=== PATIENT | male | born 1940 | race Caucasian/White ===

== ENCOUNTER 2016-06-01 08:48 | Day surgery (SDC) ==
[2016-06-01] MEDS ORDERED: LIDOCAINE 1% 20 ML MDV ID ONE (09:12)
[2016-06-01] MEDS ORDERED: LIDOCAINE 1% 20 ML MDV ONE (09:12)
[2016-06-01] MEDS ORDERED: DIPRIVAN 20 ML VIAL IVP ONE (11:05)
[2016-06-01] MEDS ORDERED: VERSED ONE (11:05)
[2016-06-01 12:10] VITALS: BP 144/73; TEMP 98
--- NOTE | 2016-06-02 09:51 | OP ---
INDICATIONS FOR PROCEDURE: 76-year-old gentleman presents for a screening colon exam. He also incidentally has normocytic anemia. MEDICATIONS: SEE ANESTHESIA NOTES. PROCEDURE: COLONOSCOPY, SCREENING. REPORT: The risks, benefits, alternatives and limitations were discussed in detail with the patient. Informed consent was obtained. After adequate sedation was achieved, a digital rectal exam revealed good tone, no masses. The colonoscope was introduced into the rectum and advanced under direct visual guidance to the cecum. The cecum was identified by the appendiceal orifice and IC valve. I then slowly withdrew the scope in a circumferential manner examining the mucosa quite carefully. I looked on the proximal and distal side of folds and flexures as best as possible. I was able to retroflex the scope in the right colon and left colon to increase visualization. Colonic mucosa was unremarkable except for several small mouth diverticula scattered throughout the sigmoid. On retroflex view of the anal canal there were small non engorged internal hemorrhoids. The prep was good. The withdrawal time was 8 minutes and 19 seconds. The patient tolerated the procedure well with stable vital signs and pulse oximetry throughout. IMPRESSION: 1. MILD DIVERTICULOSIS. 2. SMALL NONENGORGED INTERNAL HEMORRHOIDS. RECOMMENDATIONS: 1. High fiber diet. 2. Office visit as needed. 3. Given his advanced age and health, future screening colonoscopy examinations are not recommended. CC: DR. FARNAZ NORTON
== END 2016-06-01 12:25 | disposition home or self-care (01) ==
LOC: SURG 08:48
PROVIDERS: ATTEND Internal Medicine Gastroenterology
DX: Z12.11 Encounter for screening for malignant neoplasm of colon (principal); D64.9 Anemia, unspecified; K57.30 Diverticulosis of large intestine without perforation or abscess without bleeding; K64.8 Other hemorrhoids
CPT/HCPCS: 00810; G0105

== ENCOUNTER 2016-06-15 12:31 | Outpatient (CLI) ==
--- NOTE | 2016-06-15 13:50 | DI ---
EXAM: Radiographs, lumbar spine HISTORY: Right-sided sciatica. COMPARISON: None available. TECHNIQUE: Five views. FINDINGS: Mild left convex curvature centered in the mid lumbar spine noted. Alignment is normal. The vertebral body heights maintained. There is moderate loss of disc height at L4-5 and L5-S1. V ertebral body heights are maintained. Multilevel endplate osteophyte formation is greater in the lo wer lumbar spine. Multilevel facet arthropathy is also greater in the lower lumbar spine, moderate in degree. No fracture or subluxation identified. Sacral arcuate lines are intact. Atheroscleroti c calcifications are present. IMPRESSION: Moderate degenerative changes, greater in the lower lumbar spine.
== END 2016-06-15 12:32 | disposition home or self-care (01) ==
LOC: RAD 12:31
PROVIDERS: ATTEND Internal Medicine
DX: M54.31 Sciatica, right side (principal)

== ENCOUNTER 2017-08-30 08:12 | Day surgery (SDC) ==
[2017-08-30] MEDS ORDERED: LIDOCAINE 1% 20 ML MDV ID STA (08:49)
[2017-08-30] MEDS ORDERED: LIDOCAINE HCL 2% LUER-JET ONE (11:00)
[2017-08-30] MEDS ORDERED: DIPRIVAN 20 ML VIAL IVP ONE (11:00)
[2017-08-30] MEDS ORDERED: VERSED ONE (11:00)
[2017-08-30 13:41] VITALS: BP 128/67; TEMP 98.2
--- NOTE | 2017-08-31 11:12 | OP ---
INDICATIONS FOR PROCEDURE: 77 year old gentleman presents for endoscopy. He has a little bit of heartburn of indigestion and occasional dysphagia. He is found to have a normal acidic anemia. This is chronic. He is scheduled for endoscopy. MEDICATIONS: SEE ANESTHESIA NOTES. PROCEDURE: ENDOSCOPY. ESOPHAGEAL BIOPSY, CITIZEN OF [place]IL[place] REPORT: The risks, benefits, alternatives and limitations were discussed in detail with the patient. Informed consent was obtained. After adequate sedation was achieved, the video endoscope was introduced in the posterior pharynx and esophagus under direct vision and easily advanced down to the second portion of the duodenum. I then slowly withdrew. The duodenal mucosa appeared unremarkable as did the duodenal bulb. The antrum body is relatively unremarkably. The scope was retroflexed to look at the cardia and fundus which was unremarkable. The scope was anteflexed and withdrawn back through the esophagus. The GE junction there was 2+ reflux esophagitis consistent of LA grade B reflux esophagitis. I biopsied the GE junction for histological review. There was also circumferential esophageal stricture right above the GI junction. This causes mild lumen narrowing. The advised the scope back down the gastric lumen and I placed the guidewire. I then slowly withdrew the scope. The remaining esophagus was unremarkable. Over the guidewire I easily advised the 54 [place] Dilator. The patient tolerated the procedure well with stable vital signs and pulse oximetry throughout. IMPRESSION: 1. LA grade B reflux esophagitis 2. Distal esophageal stricture RECOMMENDATIONS: 1. Strict reflux precautions 2. I am going to have him take Omeprazole 20mg QAM for two months and then he can switch over to a over the counter H2 stacey. 3. Await pathology results 4. We will see him back in the office as needed CC: Dr. Flip NORTON
== END 2017-08-30 11:45 | disposition home or self-care (01) ==
LOC: SURG 08:12
PROVIDERS: ATTEND Internal Medicine Gastroenterology
DX: K21.0 Gastro-esophageal reflux disease with esophagitis (principal); K22.2 Esophageal obstruction; R13.10 Dysphagia, unspecified; D64.9 Anemia, unspecified; R12 Heartburn

== ENCOUNTER 2019-10-16 09:44 | Inpatient (IN) ==
--- NOTE | 2019-10-16 10:05 | ED.PDOC ---
General ED Provider: Dr. DIPAK WITT Chief Complaint: Shortness of Air Stated Complaint: Onset yesterday with progressive worsening through today. Denies past hx of CHF or COPD Pos Hx Diabetes and Hypertension Time Seen by Physician: 10:00 Mode of Arrival: Wheelchair Information Source: Patient Exam Limitations: No limitations Primary Care Provider: RAMON CASTELAN Nursing and Triage Documentation Reviewed and Agree: Yes Does patient meet sepsis criteria?: No If yes, has appropriate treatment been initiated?: No System Inflammatory Response Syndrome: Not Applicable Sepsis Protocol: For patient's 13 years and over: Temp is 96.8 and below OR 101 and greater Pulse >90 BPM Resp >20/minute Acutely Altered Mental Status Are patient's symptoms suggestive of a new infection, such as: -Pneumonia -Skin, Soft Tissue -Endocarditis -UTI -Bone, Joint Infection -Implantable Device -Acute Abdominal Infection -Wound Infection -Meningitis -Blood Stream Catheter Infection -Unknown Respiratory Complaint Exam Shortness of Air Complaint/Exam Onset/Duration: yesterday Symptoms Are: Worse Timing: Constant Initial Severity: Mild Current Severity: Moderate Character: Reports Dyspnea at rest, Dyspnea on exertion and Orthopnea Aggravating: Reports Movement and Recumbent position Alleviating: Reports None Associated Signs and Symptoms: Reports Wheezing Related History: Denies Similar episode History of Healthcare-Acquired Pneumonia: No Pulmonary Embolism Risk Factors: Reports None Pseudomonas Risk Factors: Reports None Tuberculosis Risk Factors: Reports None Home Peak Flow: Recent personal best Recent Stress Test: No Respiratory Distress: Moderate Stridor Present: No Tracheal Deviation: No Subcutaneous Emphysema: No Accessory Muscle Use: No Retractions: Not Present Diminished Breath Sounds: Yes Prolonged Expiratory Phase: No Unable to Speak Full Sentences: No Fatigue: Yes Leg Swelling: No Ed's Sign Present: No Grunting Respirations: No Kussmaul Respirations: No Differential Diagnoses: CHF and Pulmonary Edema Quality Indicators for AMI: EKG in 10min. Review of Systems Review Of Systems Constitutional: Reports Weakness Eyes: Reports No symptoms Ears, Nose, Mouth, Throat: Reports No symptoms Respiratory: Reports Orthopnea, Short of air and Wheezing Cardiac: Reports Lightheadedness GI: Reports No symptoms : Reports No symptoms Musculoskeletal: Reports No symptoms Skin: Reports No symptoms Neurological: Reports No symptoms Endocrine: Reports No symptoms Hematologic/Lymphatic: Reports No symptoms All Other Systems: Reviewed and Negative [facility] Medical History (Updated 06/24/20 @ 12:24 by ELLIOTT JORDAN) ASHD (arteriosclerotic heart disease) CKD (chronic kidney disease) COPD (chronic obstructive pulmonary disease) Diabetes Hypertension Metabolic syndrome Sciatica of right side Skin cancer Stricture esophagus Family History (Updated 10/16/19 @ 16:02 by DION WEI RN) Mother Stroke Hypertension Diabetes FATHER Hypertension FATHER AMI (acute myocardial infarction) SISTER Cancer BROTHER Cardiac abnormality Physical Exam Physical Exam Appearance: Reports Ill-appearing and Thin Ill-appearing: Moderate Pain Distress: None Eyes: Reports ALICE, EOMI and Conjunctiva clear ENT: Reports Ears normal, Nose normal and Oropharynx normal Neck: Supple Respiratory: Reports Breath sounds diminished, Crackles and Wheezes Cardiovascular: Reports Irregular rhythm GI/: Reports Soft, Nontender, No masses and Bowel sounds normal Musculoskeletal: Reports Normal strength, ROM intact, No edema and No calf tenderness Skin: Reports Warm Neurological: Reports Sensation intact, Motor intact, Reflexes intact, Cranial nerves intact, Alert and Oriented Psychiatric: Reports Affect appropriate and Mood appropriate; Denies Anxious and Depressed Interpretation Radiology Interpretation Radiology Interpretation By: Radiologist Exam Interpreted: Portable CXR (pumonary edema; Basilar consolidation poss pneumonia) EKG Interpretation Time of EKG #1: 10:11 Rate: Normal Rhythm: Sinus Ectopy: PVCs [place]: Left Interpretation: Can not r/o septal infarct, age undetermined Re-Evaluation Re-Evaluation Time of Re-Evaluation: 12:30 Status: Improved Vital Signs Stable: Yes Pain Level: 0 Appearance: NAD Lungs: Other (few crackles. non labored) Skin: Warm and Dry Neuro: Alert and Oriented X3 CV: RRR Physician Notification Case Discussed Physician Notified: Dr Castelan-discussed case-five patient decadron/aware of clinical impression; Time of Notification: 11:55 Critical Care Note Critical Care Note Total Time (mins): 60 Comments: The patient's status, along with VS, monitor and resp status has been monitored. Patient has remained in stable condition. Course Course Hematology/Chemistry: 10/18/19 05:22 10/18/19 05:22 Orders, Labs, Meds: Lab Review 10/16/19 10/16/19 10/16/19 10:10 10:40 10:40 WBC 13.12 H RBC 3.53 L Hgb 10.9 L Hct 32.0 L MCV 90.7 MCH 30.9 MCHC 34.1 RDW Coeff of Az 13.6 Plt Count 358 Immature Gran % (Auto) 0.4 Neut % (Auto) 87.0 H Lymph % (Auto) 6.3 L [place] % (Auto) 6.1 Eos % (Auto) 0.0 Baso % (Auto) 0.2 Neut # (Auto) 11.4 H Lymph # (Auto) 0.8 [place] # (Auto) 0.8 Eos # (Auto) 0.0 Baso # (Auto) 0.0 Immature Gran # (Auto) 0.1 PT 10.4 INR 1.06 APTT 23.9 Puncture Site Rr O2 Saturation 91.0 L ABG pH 7.328 L ABG pCO2 38.7 ABG pO2 66.0 L ABG HCO3 20.3 L ABG Total CO2 21 L ABG Base Excess -6 L Domo Test + FiO2 % 21.0 Sodium Potassium Chloride Carbon Dioxide Anion Gap BUN Creatinine Estimated GFR (MDRD) BUN/Creatinine Ratio Glucose Calcium Total Bilirubin AST ALT Alkaline Phosphatase Troponin I Total Protein Albumin Globulin Albumin/Globulin Ratio Procalcitonin D-Dimer Urine Color Urine Clarity Urine pH Ur Specific [place] Urine Protein Urine Glucose (UA) Urine Ketones Urine Blood Urine Nitrite Urine Bilirubin Urine Urobilinogen Ur Leukocyte Esterase Urine Microscopic WBC Ur Squamous Epith Cells Influ A Molecular Assay Influ B Molecular Assay 10/16/19 10/16/19 10/16/19 10:40 10:40 10:40 WBC RBC Hgb Hct MCV MCH MCHC RDW Coeff of Az Plt Count Immature Gran % (Auto) Neut % (Auto) Lymph % (Auto) [place] % (Auto) Eos % (Auto) Baso % (Auto) Neut # (Auto) Lymph # (Auto) [place] # (Auto) Eos # (Auto) Baso # (Auto) Immature Gran # (Auto) PT INR APTT Puncture Site O2 Saturation ABG pH ABG pCO2 ABG pO2 ABG HCO3 ABG Total CO2 ABG Base Excess Domo Test FiO2 % Sodium 123.0 L Potassium 4.70 Chloride 88.0 L Carbon Dioxide 22.0 Anion Gap 17.70 BUN 15.0 Creatinine 0.90 Estimated GFR (MDRD) 81.00 BUN/Creatinine Ratio 16.66 Glucose 219.0 H Calcium 8.80 Total Bilirubin 0.50 AST 28.0 ALT 18.0 Alkaline Phosphatase 65.0 Troponin I Total Protein 7.20 Albumin 3.90 Globulin 3.30 Albumin/Globulin Ratio 1.18 Procalcitonin < 0.05 D-Dimer 2709.08 H Urine Color Urine Clarity Urine pH Ur Specific [place] Urine Protein Urine Glucose (UA) Urine Ketones Urine Blood Urine Nitrite Urine Bilirubin Urine Urobilinogen Ur Leukocyte Esterase Urine Microscopic WBC Ur Squamous Epith Cells Influ A Molecular Assay Influ B Molecular Assay 10/16/19 10/16/19 10/16/19 10:40 10:40 11:12 WBC RBC Hgb Hct MCV MCH MCHC RDW Coeff of Az Plt Count Immature Gran % (Auto) Neut % (Auto) Lymph % (Auto) [place] % (Auto) Eos % (Auto) Baso % (Auto) Neut # (Auto) Lymph # (Auto) [place] # (Auto) Eos # (Auto) Baso # (Auto) Immature Gran # (Auto) PT INR APTT Puncture Site O2 Saturation ABG pH ABG pCO2 ABG pO2 ABG HCO3 ABG Total CO2 ABG Base Excess Domo Test FiO2 % Sodium Potassium Chloride Carbon Dioxide Anion Gap BUN Creatinine Estimated GFR (MDRD) BUN/Creatinine Ratio Glucose Calcium Total Bilirubin AST ALT Alkaline Phosphatase Troponin I 0.057 Total Protein Albumin Globulin Albumin/Globulin Ratio Procalcitonin D-Dimer Urine Color Yellow Urine Clarity Clear Urine pH 5.5 Ur Specific [place] 1.025 Urine Protein Trace H Urine Glucose (UA) Trace H Urine Ketones Negative Urine Blood Negative Urine Nitrite Negative Urine Bilirubin Negative Urine Urobilinogen 0.2 Ur Leukocyte Esterase Negative Urine Microscopic WBC 0-2 Ur Squamous Epith Cells 0-2 Influ A Molecular Assay Negative by naat Influ B Molecular Assay Negative by naat Orders Category Date Time Status ADMIT PATIENT INPATIENT .TO [facility] (MONITORED BED) ADMISSION 10/16/19 13:29 Active ABG DRAW REQUEST Stat CARDIO 10/16/19 10:10 Completed EKG-(ED ONLY) Stat CARDIO 10/16/19 10:10 Completed INTAKE & OUTPUT Q8HR CARE 10/16/19 10:19 Active NPO REMINDER: IMAGING ONCE CARE 10/16/19 11:59 Completed TELEMETRY MONITORING TELE CARE 10/16/19 13:29 Active IV [ED IV/MEDIPORT/POWERPORT] .ONCE EMERGENCY 10/16/19 10:17 Active ABG Stat LAB 10/16/19 10:10 Completed BLOOD CULTURE (ED ONLY) Stat LAB 10/16/19 10:40 Results CBC W/ AUTO DIFF Stat LAB 10/16/19 10:40 Completed CMP [COMPREHENSIVE METABOLIC PANEL] Stat LAB 10/16/19 10:40 Completed D-DIMER Stat LAB 10/16/19 10:40 Completed FLU A & B MOLECULAR [FLU A/B MOLECULAR] Stat LAB 10/16/19 10:40 Completed PARTIAL THROMBOPLASTIN TIME Stat LAB 10/16/19 10:40 Completed POS BC ID AND CUCA Stat LAB 10/16/19 10:40 Completed PROCALCITONIN Stat LAB 10/16/19 10:40 Completed PT WITH INR Stat LAB 10/16/19 10:40 Completed TROPONIN I Stat LAB 10/16/19 10:40 Completed UA [URINALYSIS C & S IF INDICATED] Stat LAB 10/16/19 11:12 Completed 0.9 % Sodium Chloride [Saline Flush] MEDS 10/16/19 10:17 Active 1 syr IVF PRN PRN Albuterol Inhaler(with Spacer) [Ventolin Hfa (Per Puff- MEDS 10/16/19 12:10 Discontinued with Spacer)] 2 puff IH ONCE STA Dexamethasone 4 mg/ml Inj [Decadron 4 mg/ml Sdv] MEDS 10/16/19 12:00 Disco ntinued 4 mg IVP ONCE STA Furosemide [Lasix] MEDS 10/16/19 10:17 Discontinued 20 mg IVP ONCE STA Sodium Chloride 0.9% [Sodium Chloride] 1,000 ml MEDS 10/16/19 12:03 Discontinued IV ONCE CHEST, 1V AP ONLY Stat RADS 10/16/19 10:[address] CHEST PE PROTOCOL Stat RADS 10/16/19 11:59 Completed Medications Generic Name Dose Route Start Last Admin Trade Name Freq PRN Reason Stop Dose Admin Aspirin 81 mg 10/17/19 08:30 10/17/19 08:17 Aspirin Ec PO 81 mg DAILYWM SAMAN Administration Atorvastatin Calcium 40 mg 10/16/19 21:00 10/17/19 20:36 Lipitor PO 40 mg BEDTIME SAMAN Administration Enoxaparin Sodium 40 mg 10/16/19 14:00 10/17/19 08:17 Lovenox SUBCUT 40 mg DAILY SAMAN Administration Furosemide 40 mg 10/18/19 06:30 10/18/19 06:45 Lasix Tab PO 40 mg QDAC SAMAN Administration Sodium Chloride 1,000 mls @ 50 mls/hr 10/17/19 12:50 10/17/19 23:54 Sodium Chloride IV Not Given .Q20H SAMAN CEFTRIAXONE/D5W 1 GM PREMIX 1 gm in 50 mls @ 75 mls/hr 10/17/19 13:00 10/17/19 13:11 Rocephin 1 Gm/50 Ml D5w IV 10/20/19 12:59 75 mls/hr DAILY SAMAN Administration Insulin Human Regular 0 unit 10/16/19 14:06 10/18/19 06:45 Humulin R SUBCUT 3 unit PRN PRN Administration glucose elevation Protocol Losartan Potassium 50 mg 10/17/19 09:00 10/17/19 08:17 Cozaar PO 50 mg DAILY SAMAN Administration Metoprolol Tartrate 25 mg 10/16/19 14:30 10/17/19 20:36 Lopressor PO 25 mg BID SAMAN Administration Morphine Sulfate 3 mg 10/17/19 18:50 10/18/19 03:12 Morphine 2 Mg/Ml Syringe IVP 3 mg Q2H PRN Administration SOA Omeprazole 20 mg 10/17/19 06:30 10/18/19 06:45 Prilosec PO 20 mg QDAC SAMAN Administration Sodium Chloride 1 syr 10/16/19 10:17 10/16/19 12:06 Saline Flush IVF 1 syr PRN PRN Administration To flush IV Discontinued Medications Generic Name Dose Route Start Last Admin Trade Name Freq PRN Reason Stop Dose Admin Albuterol Sulfate 2 puff 10/16/19 12:10 10/16/19 12:14 Ventolin Hfa (Per Puff-With Spacer) IH 10/16/19 12:11 2 puff ONCE STA Administration Dexamethasone Sodium Phosphate 4 mg 10/16/19 12:00 10/16/19 12:05 Decadron 4 Mg/Ml Sdv IVP 10/16/19 12:01 4 mg ONCE STA Administration Dexamethasone Sodium Phosphate 4 mg 10/17/19 12:50 10/17/19 13:15 Decadron 4 Mg/Ml Sdv IM 10/17/19 12:51 4 mg ONCE STA Administration Furosemide 20 mg 10/16/19 10:17 10/16/19 10:40 Lasix IVP 10/16/19 10:18 20 mg ONCE STA Administration Furosemide 20 mg 10/16/19 17:00 10/17/19 06:39 Lasix IVP 20 mg BIDAC SAMAN Administration Sodium Chloride 1,000 mls @ 75 mls/hr 10/16/19 12:03 10/16/19 12:13 Sodium Chloride IV 10/17/19 01:22 75 mls/hr ONCE ONE Administration Sodium Chloride 1,000 mls @ 30 mls/hr 10/16/19 16:00 10/16/19 17:41 Sodium Chloride IV 30 mls/hr .[id number] SAMAN Administration Sodium Chloride 1,000 mls @ 15 mls/hr 10/16/19 17:43 10/16/19 17:52 Sodium Chloride IV 15 mls/hr .Q36H SAMAN Administration Lisinopril 5 mg 10/17/19 09:00 10/17/19 08:17 Zestril PO 5 mg DAILY SAMAN Administration Morphine Sulfate 2 mg 10/16/19 17:59 10/16/19 18:14 Morphine 2 Mg/Ml Syringe IVP 10/16/19 18:00 2 mg ONCE STA Administration Morphine Sulfate 2 mg 10/16/19 21:47 10/16/19 22:02 Morphine 2 Mg/Ml Syringe IVP 10/16/19 21:48 2 mg ONCE STA Administration Vital Signs: Temp Pulse Resp BP Pulse Ox 10/16/19 09:55 97.4 F L 10/16/19 09:45 95.5 F L 51 L 26 H 137/68 86 L Discharge Plan Discharge Patient Disposition: ADMITTED INPATIENT Discharge Problem: Acute cardiac pulmonary edema ED Provider: DIPAK WITT Condition: Stable Discharge Date/Time: 10/16/19 14:07
[2019-10-16] MEDS ORDERED: LASIX IVP STA (10:17)
--- NOTE | 2019-10-16 11:05 | DI ---
EXAM: Chest one view HISTORY: Dyspnea COMPARISON: 07/15/2015 TECHNIQUE: Single view of the chest was performed FINDINGS: Normal heart size and mediastinal contour. Central pulmonary vasculature is prominent and indistinct. There are patchy bilateral alveolar opacities in the mid and basilar lungs with increas ed interstitial prominence. Small bilateral pleural effusions and mild bibasilar consolidation. No acute abnormalities of the bones. IMPRESSION: 1. Pulmonary edema with small bilateral pleural effusions. 2. Mild bibasilar consolidation may represent atelectasis, component of edema and/or pneumonia.
[2019-10-16] MEDS ORDERED: DECADRON 4 MG/ML SDV IVP STA (12:00)
[2019-10-16] MEDS ORDERED: SODIUM CHLORIDE 1,000 ML IV ONE (12:03)
[2019-10-16] MEDS ORDERED: VENTOLIN HFA (PER PUFF-WITH SPACER) IH STA (12:10)
--- NOTE | 2019-10-16 13:06 | CT ---
EXAM: CTA chest with contrast HISTORY: Elevated D-dimer TECHNIQUE: Multi-slice transaxial helical PE protocol. Multiplanar MIP and 3D volume rendered image s are provided. COMPARISON: Same day chest radiograph FINDINGS: Normal appearance of the thoracic inlet and thyroid gland. No pulmonary trio filling defect. Normal heart size. No pericardial effusion. Dense coronary calcifications. Aortic atherosclerotic calcif ications. Top normal size ascending aorta measuring 3.6 cm. No enlarged axillary, mediastinal or hi lar lymph nodes. Prominent left hilar lymph node measures 0.9 cm short axis. Borderline enlarged ri ght hilar lymph node measures 1 cm short axis. Esophagus within normal limits. Patent central airways. Moderate bilateral pleural effusions tracking to the apices. Generalized u pper and lower lung peribronchial thickening with peribronchial ground-glass and consolidation. No acute findings within the visualized upper abdomen. No acute osseous abnormality. IMPRESSION: 1. No pulmonary embolism. 2. Generalized peribronchial thickening with peribronchial ground-glass and consolidation, most cons istent with bronchopneumonia. Follow-up to resolution recommended. 3. Moderate bilateral pleural effusions. 4. Atherosclerosis.
[2019-10-16 14:57] VITALS: BMI 27.0
[2019-10-16] MEDS: LOVENOX SUBCUT SCH (15:03)
[2019-10-16] MEDS: LOPRESSOR PO SCH ×2 (15:03→21:05)
[2019-10-16] MEDS ORDERED: SODIUM CHLORIDE 1,000 ML IV SCH ×2 (16:00→17:43)
[2019-10-16] MEDS: LASIX IVP SCH (16:21)
[2019-10-16] MEDS: HUMULIN R SUBCUT PRN ×2 (17:52→21:05)
[2019-10-16] MEDS ORDERED: MORPHINE 2 MG/ML SYRINGE IVP STA ×2 (17:59→21:47)
[2019-10-16] MEDS: LIPITOR PO SCH (21:05)
[2019-10-17 04:18] LABS: HEMATOCRIT 28.8 % (42.0-52.0)
[2019-10-17] MEDS: PRILOSEC PO SCH (06:04)
[2019-10-17] MEDS: HUMULIN R SUBCUT PRN ×4 (06:04→20:36)
[2019-10-17] MEDS: LASIX IVP SCH (06:39)
[2019-10-17] MEDS: LOVENOX SUBCUT SCH (08:17)
[2019-10-17] MEDS: COZAAR PO SCH (08:17)
[2019-10-17] MEDS: LOPRESSOR PO SCH ×2 (08:17→20:36)
[2019-10-17] MEDS: ASPIRIN EC PO SCH (08:17)
[2019-10-17] MEDS ORDERED: ZESTRIL PO SCH (09:00)
[2019-10-17] MEDS ORDERED: DECADRON 4 MG/ML SDV IM STA (12:50)
[2019-10-17] MEDS: ROCEPHIN 1 GM/50 ML D5W 1 GM/50 ML BAG IV SCH (13:11)
[2019-10-17] MEDS: SODIUM CHLORIDE 1,000 ML IV SCH ×3 (14:47→23:54)
[2019-10-17] MEDS ORDERED: MORPHINE 4 MG/ML SYRINGE IVP PRN (18:41)
[2019-10-17] MEDS: MORPHINE 2 MG/ML SYRINGE IVP PRN (19:15)
[2019-10-17] MEDS: LIPITOR PO SCH (20:36)
[2019-10-18] MEDS: MORPHINE 2 MG/ML SYRINGE IVP PRN ×2 (03:12→11:29)
[2019-10-18 05:27] LABS: HEMATOCRIT 29.9 % (42.0-52.0)
[2019-10-18] MEDS ORDERED: LASIX TAB PO SCH (06:30)
[2019-10-18] MEDS: HUMULIN R SUBCUT PRN ×2 (06:45→20:24)
[2019-10-18] MEDS: PRILOSEC PO SCH (06:45)
[2019-10-18] MEDS ORDERED: VENTOLIN HFA (PER PUFF-WITH SPACER) IH PRN ×2 (08:26)
--- NOTE | 2019-10-18 08:53 | PCM.PROG ---
Attending Provider: ATTENDING PROVIDER: Dr. RAMON OSEI This patient is seen with Petrona Garzon, Nurse Practitioner. DATE OF SERVICE: 10/18/19 SUBJECTIVE: This 79 year old /WHITE M was hospitalized 10/16/19. The patient is alert and resting in the chair. He continued to have shortness of breath with minimal improvement. His appetite has been fair. EKG showed ejection fraction of 25%. He has showed little change in weight. The patient is not getting up due to shortness of breath. REVIEW OF SYSTEMS: CONSTITUTIONAL: No night sweats. No fatigue, malaise, lethargy. No fever or chills. Weakness. HEENT: Eyes: No visual changes. No eye pain. No eye discharge. ENT: No runny nose. No epistaxis. No sinus pain. No odynophagia. No congestion. RESPIRATORY: No cough, no congestion. No hemoptysis. Shortness of breath. CARDIOVASCULAR: No angina symptoms. No CHF symptoms. No atypical chest pain for CAD. No palpitations. No orthopnea.. GASTROINTESTINAL: No abdominal pain. No nausea or vomiting. No diarrhea or constipation. No hematemesis. No hematochezia. GENITOURINARY: No urgency. No frequency. No dysuria. No hematuria. No obstructive symptoms. No discharge. No pain. No significant abnormal bleeding. MUSCULOSKELETAL: No musculoskeletal pain; no joint swelling. NEUROLOGICAL: Awake, alert, oriented to time, place and person. No headache. No neck pain. No syncope. No seizures. No dizziness. PSYCHIATRIC: Not anxious. No depression. No suicidal thoughts. No homicidal thoughts. SKIN: No rash. No lesions. No wounds. ENDOCRINE: No unexplained weight loss. No weight gain. HEMATOLOGIC/LYMPHATIC: No anemia. No purpura. No petechiae. No prolonged or excessive bleeding. No palpable lymph nodes. PHYSICAL EXAMINATION: GENERAL: The patient is awake, alert and oriented, lying in bed in no distress. VITAL SIGNS: Temperature 97.6 F, Pulse 80, Respiratory Rate 20, BP 134/80, Pulse Ox 94% HEENT: Head normocephalic, atraumatic. Eyes: Extraocular muscles are intact. Pupils are equal, round and reactive to light and accommodation. Ears: No lesions. Nose appeared normal. Throat: No exudate or erythema. NECK: Supple. No JVD, no carotid bruit. No lymphadenopathy or thyromegaly. LUNGS: Diminished breath sounds with expiratory wheezing. Shortness of breath. Clear to auscultation. Percussion note normal. Chest symmetrical. HEART: S1, S2, no S3. No murmurs. No cyanosis or clubbing. No ascites. Pulses: Dorsalis pedis and posterior tibial pulses +1 to +2 both sides. ABDOMEN: Soft. Non-tender. Bowel sounds active. No CVA tenderness. No mass felt. EXTREMITIES: No edema. Full range of motion of all extremities, equal. NEUROLOGIC: No focal deficit. Cranial nerves II through XII are grossly intact. No headache, no double vision or headache. SKIN: Not dry. Intact. Turgor-normal. LYMPHATIC: No palpable lymph nodes/no lymphedema. MUSCULOSKELETAL: Normal joints with no swelling. Muscle tone is normal. LAB REVIEW: 10/18/19 05:22 10/18/19 05:22 10/18/19 05:22: Sodium 121.1 L, Potassium 4.62, Chloride 84.6 L, Carbon Dioxide 24.3, Anion Gap 16.82, BUN 24.8 H, Creatinine 0.88, Estimated GFR (MDRD) 83.00, BUN/Creatinine Ratio 28.18, Glucose 153.8 H, Calcium 8.92, Total Bilirubin 0.41, AST 47.6, ALT 34.0, Alkaline Phosphatase 59.2, Total Protein 6.96, Albumin 4.01, Globulin 2.95, Albumin/Globulin Ratio 1.35 10/18/19 05:22: WBC 14.13 H, RBC 3.34 L, Hgb 10.3 L, Hct 29.9 L, MCV 89.5, MCH 30.8, MCHC 34.4, RDW Coeff of Az 13.5, Plt Count 322, Immature Gran % (Auto) 0.4, Neut % (Auto) 77.9 H, Lymph % (Auto) 11.4, [place] % (Auto) 10.2 H, Eos % (Auto) 0.0, Baso % (Auto) 0.1, Neut # (Auto) 11.0 H, Lymph # (Auto) 1.6, [place] # (Auto) 1.4, Eos # (Auto) 0.0, Baso # (Auto) 0.0, Immature Gran # (Auto) 0.1 ASSESSMENT: Please see below. 1. Pulmonary edema 2. CHF ejection fraction 25% 3. Hyponatremia PLAN: 1. Continued on slow IV fluids 2. Lasix 3. Continue to monitor daily weights 4. Monitor I&O Plan and coordination of the patient's care discussed in the presence of Senior Consumer Insights Consultant and nurse. SCRIBED BY: Rogelio RAYGOZA scribed while in presence of service performed by Dr. Osei/Petrona Garzon APRN on 10/18/19 ([id number])
[2019-10-18] MEDS ORDERED: SODIUM CHLORIDE 3% 500 ML IV SCH (09:30)
[2019-10-18] MEDS: ASPIRIN EC PO SCH (09:37)
[2019-10-18] MEDS: COZAAR PO SCH (09:37)
[2019-10-18] MEDS: LOPRESSOR PO SCH ×2 (09:37→20:24)
[2019-10-18] MEDS: ROCEPHIN 1 GM/50 ML D5W 1 GM/50 ML BAG IV SCH (09:38)
[2019-10-18] MEDS: LOVENOX SUBCUT SCH (09:39)
[2019-10-18] MEDS ORDERED: ZOFRAN 4 MG/2 ML IVP PRN (11:21)
[2019-10-18] MEDS: VENTOLIN HFA (PER PUFF-WITH SPACER) IH SCH ×2 (13:50→20:29)
--- NOTE | 2019-10-18 14:37 | PN ---
DATE OF SERVICE: 10/16/2019 SUBJECTIVE: The patient was seen and examined with the Nurse Practitioner. History and Physical was done and plan was formulated. I examined the patient in the emergency room. The patient was brought to the emergency room with obvious respiratory distress. The patient had these symptoms of shortness of breath for past 5-6 days. The past couple of days he was unable to lay down flat and he had to sit up in the chair and sleep. In the emergency room the patient was in active pulmonary edema. The patient was given IV Lasix 40mg to which he responded. D-Dimer was elevated so CT angiogram was done which was negative for any pulmonary embolism. The patient's EKG showed sinus rhythm, LVH, poor R wave progression, PVC plus 90-100 per minute. The plan is to admit the patient with telemetry orders. IV Lasix 20mg Q 12 hours. The patient is going to be given Morphine sulfate 2-3mg PRN and just before he goes to sleep. BNP is going to be done in the morning. CK-MB is going to be done in the morning. Discontinue the Troponin. Metoprolol 25mg twice a day is going to be started. Zestril 5mg given. Discontinue Amlodipine. The patient educated about CHF. The patient is going to have an echo to evaluate LV function. The patient wants DNR. TOTAL TIME SPENT: 60 minutes face to face critical care. Plan and coordination of the patient's care discussed in the presence of nurse. ERROL
[2019-10-18] MEDS: SODIUM CHLORIDE 3% 500 ML IV SCH ×2 (18:51→23:24)
[2019-10-18] MEDS: LIPITOR PO SCH (20:24)
[2019-10-19] MEDS: VENTOLIN HFA (PER PUFF-WITH SPACER) IH SCH ×4 (04:58→20:45)
[2019-10-19] MEDS: PRILOSEC PO SCH (06:09)
[2019-10-19] MEDS: LASIX TAB PO SCH (06:09)
--- NOTE | 2019-10-19 07:24 | ECHO2D ---
Date of Exam: 10/17/19 Ordering Physician: DR. RAMON OSEI Room #: 117 Reason for Echo: CHF, DM, HTN M-Mode Normal Adult Results LV Dimensions Normal Adult Results AoV Opening excursions >1.6 1.4 LVEDD-base- 3.5-5.8 5.7 Ao root dimensions 2.0-3.7 3.2 LVESD-base- 3.1-4.6 L. Atrium dimensions 1.9-3.8 5.2 Post. Wall thickness 0.8-1.1 1.0 IV septum (thickness) 0.7-1.2 1.1 Post. Wall excursion 0.72-1.3 0.9 Septal motion 0.1 Systolic motion R. Ventricular cavity 1.5-2.0 NORMAL LVEF 60% 25-30% Paradoxical septal wall motion NORMAL 2-D : 2-D M Mode Echocardiogram was performed using apical four chamber and left parasternal long and short axis views. Mitral and tricuspid valves appear to be normal.BORDERLINE LEFT VENTRICLE CAVITY. CALCIFIC AORTIC VALVE. HYPOKINETIC TO AKINETIC SEPTAL WALL. ENLARGED LEFT ATRIAL CAVITY. There is no pericardial effusion. There is no thrombus noted in the left ventricle or left atrial cavity. No mitral valve prolapse noted. M-MODE: MV: NORMAL AV: CALCIFIC AORTIC VALVES TV: NORMAL PV: CHAMBER SIZE: ENLARGED LEFT ATRIAL CAVITY/BORDERLINE LEFT VENTRICLE CAVITY WALL MOTION: AKINETIC SEPTAL WALL PERICARDIUM: NORMAL INTERPRETATION: 1. 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 AKINETIC SEPTAL WALL EJECTION EJECTION FRACTION 25% -30% 3. BORDERLINE ENLARGED LEFT VENTRICLE CAVITY 4. ENLARGED LEFT ATRIAL CAVITY (5.2 CM) MTDD
[2019-10-19] MEDS: ENTRESTO 24 MG-26 MG TABLET PO SCH ×2 (08:31→20:14)
[2019-10-19] MEDS: LOPRESSOR PO SCH ×2 (08:31→20:15)
[2019-10-19] MEDS: ASPIRIN EC PO SCH (08:31)
[2019-10-19] MEDS: ROCEPHIN 1 GM/50 ML D5W 1 GM/50 ML BAG IV SCH (08:32)
[2019-10-19] MEDS: LOVENOX SUBCUT SCH (08:32)
[2019-10-19] MEDS: GLUCOPHAGE PO SCH ×2 (08:32→17:25)
[2019-10-19] MEDS ORDERED: NON-FORMULARY MEDICATION (Metformin 1,000 MG) PO SCH (09:00)
--- NOTE | 2019-10-19 10:22 | PCM.PROG ---
Attending Provider: ATTENDING PROVIDER: Dr. RAMON OSEI This patient is seen with Petrona Garzon, Nurse Practitioner. DATE OF SERVICE: 10/19/19 SUBJECTIVE: This 79 year old /WHITE M was hospitalized 10/16/19. The patient is resting comfortably in bed. He continues to report shortness of breath. He appears to be less labored this morning. Hypertonic saline continues at 40 mL/hr. Sodium is up to 125 this morning. I will discuss with Dr. Osei if this needs to be continued. He had an episode of chest discomfort yesterday and nausea which was relieved with Morphine and Zofran with no further episodes. REVIEW OF SYSTEMS: CONSTITUTIONAL: Weakness. No night sweats. No fatigue, malaise, lethargy. No fever or chills. HEENT: Eyes: No visual changes. No eye pain. No eye discharge. ENT: No runny nose. No epistaxis. No sinus pain. No odynophagia. No congestion. RESPIRATORY: No cough, no congestion. No hemoptysis. Shortness of breath. CARDIOVASCULAR: No angina symptoms. No CHF symptoms. No atypical chest pain for CAD. No palpitations. No orthopnea.. GASTROINTESTINAL: No abdominal pain. No nausea or vomiting. No diarrhea or constipation. No hematemesis. No hematochezia. GENITOURINARY: No urgency. No frequency. No dysuria. No hematuria. No obstructive symptoms. No discharge. No pain. No significant abnormal bleeding. MUSCULOSKELETAL: No musculoskeletal pain; no joint swelling. NEUROLOGICAL: Awake, alert, oriented to time, place and person. No headache. No neck pain. No syncope. No seizures. No dizziness. PSYCHIATRIC: Not anxious. No depression. No suicidal thoughts. No homicidal thoughts. SKIN: No rash. No lesions. No wounds. ENDOCRINE: No unexplained weight loss. No weight gain. HEMATOLOGIC/LYMPHATIC: No anemia. No purpura. No petechiae. No prolonged or excessive bleeding. No palpable lymph nodes. PHYSICAL EXAMINATION: GENERAL: The patient is awake, alert and oriented, lying/sitting in bed in no distress. VITAL SIGNS: Temperature 98.1 F, Pulse 67, Respiratory Rate 18, BP 130/78, Pulse Ox 98% HEENT: Head normocephalic, atraumatic. Eyes: Extraocular muscles are intact. Pupils are equal, round and reactive to light and accommodation. Ears: No lesions. Nose appeared normal. Throat: No exudate or erythema. NECK: Supple. No JVD, no carotid bruit. No lymphadenopathy or thyromegaly. LUNGS: Mild dyspnea. Diminished breath sounds. Expiratory wheezing. Percussion note normal. Chest symmetrical. HEART: S1, S2, no S3. No murmurs. No cyanosis or clubbing. No ascites. Pulses: Dorsalis pedis and posterior tibial pulses +1 to +2 both sides. ABDOMEN: Soft. Non-tender. Bowel sounds active. No CVA tenderness. No mass felt. EXTREMITIES: No edema. Full range of motion of all extremities, equal. NEUROLOGIC: No focal deficit. Cranial nerves II through XII are grossly intact. No headache, no double vision or headache. SKIN: Not dry. Intact. Turgor-normal. LYMPHATIC: No palpable lymph nodes/no lymphedema. MUSCULOSKELETAL: Normal joints with no swelling. Muscle tone is normal. LAB REVIEW: 10/19/19 05:05 10/19/19 05:05 10/19/19 05:05: Sodium 125.4 L, Potassium 4.52, Chloride 91.0 L, Carbon Dioxide 27.6, Anion Gap 11.32, BUN 26.4 H, Creatinine 0.99, Estimated GFR (MDRD) 73.00, BUN/Creatinine Ratio 26.66, Glucose 132.4 H, Calcium 8.76, Total Bilirubin 0.40, AST 52.5, ALT 42.8, Alkaline Phosphatase 60.2, Total Protein 6.57, Albumin 3.84, Globulin 2.73, Albumin/Globulin Ratio 1.40 10/19/19 05:05: WBC 11.92 H, RBC 3.19 L, Hgb 9.9 L, Hct 29.0 L, MCV 90.9, MCH 31.0, MCHC 34.1, RDW Coeff of Az 13.9, Plt Count 300, Immature Gran % (Auto) 0.4, Neut % (Auto) 78.3 H, Lymph % (Auto) 9.5 L, [place] % (Auto) 11.6 H, Eos % (Auto) 0.0, Baso % (Auto) 0.2, Neut # (Auto) 9.3 H, Lymph # (Auto) 1.1, [place] # (Auto) 1.4, Eos # (Auto) 0.0, Baso # (Auto) 0.0, Immature Gran # (Auto) 0.1 10/18/19 18:10: Sodium 120.9 L 10/18/19 12:55: Sodium 120.1 L ASSESSMENT: Please see below. 1. Pulmonary edema 2. CHF ejection fraction 25% 3. Hyponatremia PLAN: 1. Continue to monitor closely. 2. Continue strict I & O. 3. Restart Metformin. 4. Low dose Entresto started yesterday Plan and coordination of the patient's care discussed in the presence of Citrus Fruit Packer and nurse. CONDITION: Stable SCRIBED BY: ELLIOTT JORDAN, Energy Efficient Site Manager scribed while in presence of service performed by Dr. Osei/Petrona Garzon APRN on 10/19/19 ([id number])
--- NOTE | 2019-10-19 10:36 | PN ---
DATE OF SERVICE: 10/19/2019 SUBJECTIVE: The patient was seen and examined with Nurse Practitioner. The patient's condition is stable. CHF under control. He is still short of breath on exertion. Hyponatremia seems to be improving with sodium 125 with hypertonic solution. No signs of fluid overload. TIME SPENT: More than 30 minutes. Plan and coordination of the patient's care discussed in the presence of nurse. ERROL
--- NOTE | 2019-10-19 10:41 | PCM.PROG ---
Attending Provider: ATTENDING PROVIDER: Dr. RAMON OSEI DATE OF SERVICE: 10/17/19 SUBJECTIVE: This 79 year old /WHITE M was hospitalized 10/16/19 with acute pulmonary edema. The patient was treated with IV Lasix was also given Morphine Sulfate intermittently along with steroids. Chest x-ray and CT scan of the chest were indicative of pulmonary edema possibility of infiltrate indicating early pn eumomia. The patient's symptoms have been present for 5 to 7 days with orthopnea. He denied chest discomfort prior to becoming short of breath. The patient has a lot of anxiety related to his being in the residential from a hip fracture. REVIEW OF SYSTEMS: CONSTITUTIONAL: No night sweats. No fatigue, malaise, lethargy. No fever or chills. HEENT: Eyes: No visual changes. No eye pain. No eye discharge. ENT: No runny nose. No epistaxis. No sinus pain. No odynophagia. No congestion. RESPIRATORY: No cough, no congestion. No hemoptysis. Shortness of breath on exertion but is feeling better. He slept well. CARDIOVASCULAR: No angina symptoms. No CHF symptoms. No atypical chest pain for CAD. No palpitations. No orthopnea.. GASTROINTESTINAL: Appetite improved. No abdominal pain. No nausea or vomiting. No diarrhea or constipation. No hematemesis. No hematochezia. GENITOURINARY: No urgency. No frequency. No dysuria. No hematuria. No obstructive symptoms. No discharge. No pain. No significant abnormal bleeding. MUSCULOSKELETAL: No musculoskeletal pain; no joint swelling. NEUROLOGICAL: Awake, alert, oriented to time, place and person. No headache. No neck pain. No syncope. No seizures. No dizziness. PSYCHIATRIC: Not anxious. No depression. No suicidal thoughts. No homicidal thoughts. SKIN: No rash. No lesions. No wounds. ENDOCRINE: No unexplained weight loss. No weight gain. HEMATOLOGIC/LYMPHATIC: No anemia. No purpura. No petechiae. No prolonged or ex cessive bleeding. No palpable lymph nodes. PHYSICAL EXAMINATION: GENERAL: The patient is awake, alert and oriented, lying/sitting in bed in no distress. VITAL SIGNS: Temperature 97.6 F, Pulse 83, Respiratory Rate 18, BP 118/77, Pulse Ox 94% HEENT: Head normocephalic, atraumatic. Eyes: Extraocular muscles are intact. Pupils are equal, round and reactive to light and accommodation. Ears: No lesions. Nose appeared normal. Throat: No exudate or erythema. NECK: Supple. No JVD, no carotid bruit. No lymphadenopathy or thyromegaly. LUNGS: Decreased breath sounds with mild expiratory wheeze. Percussion note normal. Chest symmetrical. HEART: S1, S2, no S3. No murmurs. No cyanosis or clubbing. No ascites. Pulses: Dorsalis pedis and posterior tibial pulses +1 to +2 both sides. ABDOMEN: Soft. Non-tender. Bowel sounds active. No CVA tenderness. No mass f elt. EXTREMITIES: No edema. Full range of motion of all extremities, equal. NEUROLOGIC: No focal deficit. Cranial nerves II through XII are grossly intact. No headache, no double vision or headache. SKIN: Warm and dry. Intact. Turgor-normal. LYMPHATIC: No palpable lymph nodes/no lymphedema. MUSCULOSKELETAL: Normal joints with no swelling. Muscle tone is normal. LAB REVIEW: 10/17/19 04:20 10/17/19 04:20 10/17/19 04:20: Sodium 121.6 L, Potassium 4.68, Chloride 86.9 L, Carbon Dioxide 25.7, Anion Gap 13.68, BUN 20.2 H, Creatinine 0.94, Estimated GFR (MDRD) 77.00, BUN/Creatinine Ratio 21.48, Glucose 142.6 H D, Calcium 8.75, Total Bilirubin 0.48, AST 32.5, ALT 19.7, Alkaline Phosphatase 55.7 L, Total Creatine Kinase 175.1 H, CK-MB (CK-2) 10.600 H*, CK-MB (CK-2) % 6.0500, NT-Pro-B Natriuret Pep 13101.000 H, Total Protein 6.65, Albumin 3.73, Globulin 2.92, Albumin/Globulin Ratio 1.27 10/17/19 04:20: WBC 10.89 H, RBC 3.22 L, Hgb 10.0 L, Hct 28.8 L, MCV 89.4, MCH 31.1 H, MCHC 34.7, RDW Coeff of Az 13.6, Plt Count 319, Immature Gran % (Auto) 0.2, Neut % (Auto) 81.0 H, Lymph % (Auto) 9.5 L, [place] % (Auto) 9.1, Eos % (Auto) 0.0, Baso % (Auto) 0.2, Neut # (Auto) 8.8 H, Lymph # (Auto) 1.0, [place] # (Auto) 1.0, Eos # (Auto) 0.0, Baso # (Auto) 0.0, Immature Gran # (Auto) 0.0 10/17/19 04:20: Troponin I 0.602 H* 10/16/19 19:58: Troponin I 0.649 H* 10/16/19 10:40: Troponin I 0.057 EKG sinus rhythm, no PVCs. LVH with strain pattern, poor R wave progression. No acute changes. This EKG is much better from yesterday's EKG with stable rhythm. CK-MB borderline elevated because of ischemic damage. I don't think the patient had primary cardiac event involving coronary arteries. ASSESSMENT: Please see below. 1. Acute pulmonary edema resolved. 2. CHF, PVCs under control. 3. Hyponatremia persists. 4. Hypertension controlled. PLAN: 1. The patient is getting ready to have an echocardiogram. 2. NS infusion at 50 cc/hr; will watch for fluid overload. 3. Continue Metoprolol 25 mg b.i.d. 4. D/C Lisinopril. 5. Losartan 50 mg daily. 6. D/C Amlodipine. 7. Rocephin 1 gm q.24 hr for possibility of pneumonia on chest x-ray. 8. 1 cc IV Decadron today. 9. D/C IV Lasix 40 mg. 10. Give Lasix 40 mg q.a.m. p.o. Plan and coordination of the patient's care discussed in the presence of Rn Circulating and nurse. EDUCATION: CHF education carried out. CONDITION: Stable. Prognosis is guarded. SCRIBED BY: Chidi ELDRIDGEist scribed while in presence of service performed by Dr. RAMON OSEI on 10/17/19 ([id number])
[2019-10-19] MEDS ORDERED: DECADRON 4 MG/ML SDV IM STA (12:58)
--- NOTE | 2019-10-19 12:59 | PN ---
DATE OF SERVICE: 10/18/19 SUBJECTIVE: Mr. Talley was seen and examined with the nurse practitioner. The patient's condition is stabilizing. He is still short of breath on minimal exertion. He will be continued on Metoprolol and Cozaar. His systolic blood pressure is acceptable. The patient is a candidate of Entresto. We will add that and make some adjustment in his medications. TIME SPENT: More than 30 minutes. Plan and coordination of the patient's care discussed in the presence of nurse. ERROL
[2019-10-19] MEDS: HUMULIN R SUBCUT PRN ×2 (17:25→20:15)
[2019-10-19] MEDS: SODIUM CHLORIDE 3% 500 ML IV SCH (19:10)
[2019-10-19] MEDS: LIPITOR PO SCH (20:15)
[2019-10-20] MEDS: MORPHINE 4 MG/ML SYRINGE IVP PRN ×2 (04:39→11:41)
[2019-10-20] MEDS: VENTOLIN HFA (PER PUFF-WITH SPACER) IH SCH ×4 (04:39→19:56)
[2019-10-20 05:09] LABS: HEMATOCRIT 31.1 % (42.0-52.0)
[2019-10-20] MEDS: LASIX TAB PO SCH (05:58)
[2019-10-20] MEDS: PRILOSEC PO SCH (05:58)
[2019-10-20] MEDS: HUMULIN R SUBCUT PRN ×3 (05:59→20:43)
[2019-10-20] MEDS: SODIUM CHLORIDE 3% 500 ML IV SCH (07:40)
[2019-10-20] MEDS: ROCEPHIN 1 GM/50 ML D5W 1 GM/50 ML BAG IV SCH (09:21)
[2019-10-20] MEDS: GLUCOPHAGE PO SCH ×2 (09:21→17:27)
[2019-10-20] MEDS: ENTRESTO 24 MG-26 MG TABLET PO SCH ×2 (09:21→20:26)
[2019-10-20] MEDS: LOVENOX SUBCUT SCH (09:22)
[2019-10-20] MEDS: ASPIRIN EC PO SCH (09:22)
[2019-10-20] MEDS: LOPRESSOR PO SCH ×2 (09:22→20:26)
[2019-10-20] MEDS ORDERED: LASIX IVP STA (11:35)
[2019-10-20] MEDS ORDERED: DECADRON 4 MG/ML SDV IM STA (11:35)
[2019-10-20] MEDS: LIPITOR PO SCH (20:26)
[2019-10-21] MEDS: VENTOLIN HFA (PER PUFF-WITH SPACER) IH SCH ×4 (05:36→19:40)
[2019-10-21] MEDS: LASIX TAB PO SCH (06:05)
[2019-10-21] MEDS: PRILOSEC PO SCH (06:05)
[2019-10-21] MEDS: ROCEPHIN 1 GM/50 ML D5W 1 GM/50 ML BAG IV SCH (09:24)
[2019-10-21] MEDS: LOPRESSOR PO SCH ×2 (09:24→20:21)
[2019-10-21] MEDS: ASPIRIN EC PO SCH (09:24)
[2019-10-21] MEDS: ENTRESTO 24 MG-26 MG TABLET PO SCH ×2 (09:24→20:21)
[2019-10-21] MEDS: GLUCOPHAGE PO SCH ×2 (09:24→17:16)
[2019-10-21] MEDS: LOVENOX SUBCUT SCH (09:29)
[2019-10-21] MEDS: HUMULIN R SUBCUT PRN ×2 (11:08→17:16)
[2019-10-21] MEDS: LIPITOR PO SCH (20:21)
[2019-10-22 04:48] LABS: HEMATOCRIT 33.5 % (42.0-52.0)
[2019-10-22] MEDS: VENTOLIN HFA (PER PUFF-WITH SPACER) IH SCH ×4 (04:58→19:45)
[2019-10-22] MEDS: LASIX TAB PO SCH (06:19)
[2019-10-22] MEDS: PRILOSEC PO SCH (06:19)
--- NOTE | 2019-10-22 08:13 | PCM.PROG ---
Attending Provider: ATTENDING PROVIDER: Dr. RAMON OSEI This patient is seen with Petrona Garzon, Nurse Practitioner. DATE OF SERVICE: 10/22/19 SUBJECTIVE: This 79 year old /WHITE M was hospitalized 10/16/19. The patient is resting comfortably in the chair. He reports that he is feeling much better. He is less labored with his breathing. He has no further episodes of atrial fibrillation. This morning he is sinus at 82. Appetite is good. Sodium is 131. We will wean O2 today as tolerated. We will plan for three step O2 evaluation prior to discharge. REVIEW OF SYSTEMS: CONSTITUTIONAL: No night sweats. No fatigue, malaise, lethargy. No fever or chills. Weakness, improving. HEENT: Eyes: No visual changes. No eye pain. No eye discharge. ENT: No runny nose. No epistaxis. No sinus pain. No odynophagia. No congestion. RESPIRATORY: No cough, no congestion. No hemoptysis. Shortness of breath, improving. CARDIOVASCULAR: No angina symptoms. No CHF symptoms. No atypical chest pain for CAD. No palpitations. No orthopnea.. GASTROINTESTINAL: No abdominal pain. No nausea or vomiting. No diarrhea or constipation. No hematemesis. No hematochezia. GENITOURINARY: No urgency. No frequency. No dysuria. No hematuria. No obstructive symptoms. No discharge. No pain. No significant abnormal bleeding. MUSCULOSKELETAL: No musculoskeletal pain; no joint swelling. NEUROLOGICAL: Awake, alert, oriented to time, place and person. No headache. No neck pain. No syncope. No seizures. No dizziness. PSYCHIATRIC: Not anxious. No depression. No suicidal thoughts. No homicidal thoughts. SKIN: No rash. No lesions. No wounds. ENDOCRINE: No unexplained weight loss. No weight gain. HEMATOLOGIC/LYMPHATIC: No anemia. No purpura. No petechiae. No prolonged or excessive bleeding. No palpable lymph nodes. PHYSICAL EXAMINATION: GENERAL: The patient is awake, alert and oriented, lying in bed in no distress. VITAL SIGNS: Temperature 97.6 F, Pulse 82, Respiratory Rate 18, BP 120/70, Pulse Ox 99% HEENT: Head normocephalic, atraumatic. Eyes: Extraocular muscles are intact. Pupils are equal, round and reactive to light and accommodation. Ears: No lesions. Nose appeared normal. Throat: No exudate or erythema. NECK: Supple. No JVD, no carotid bruit. No lymphadenopathy or thyromegaly. LUNGS: Diminished breath sounds. Clear to auscultation. Percussion note normal. Chest symmetrical. HEART: S1, S2, no S3. No murmurs. No cyanosis or clubbing. No ascites. Pulses: Dorsalis pedis and posterior tibial pulses +1 to +2 both sides. ABDOMEN: Soft. Non-tender. Bowel sounds active. No CVA tenderness. No mass felt. EXTREMITIES: No edema. Full range of motion of all extremities, equal. NEUROLOGIC: No focal deficit. Cranial nerves II through XII are grossly intact. No headache, no double vision or headache. SKIN: Not dry. Intact. Turgor-normal. LYMPHATIC: No palpable lymph nodes/no lymphedema. MUSCULOSKELETAL: Normal joints with no swelling. Muscle tone is normal. LAB REVIEW: 10/22/19 04:33 10/22/19 04:33 10/22/19 04:33: Sodium 131.5 L, Potassium 4.30, Chloride 94.8 L, Carbon Dioxide 32.7 H, Anion Gap 8.30, BUN 22.3 H, Creatinine 1.04, Estimated GFR (MDRD) 69.00, BUN/Creatinine Ratio 21.44, Glucose 124.5 H, Calcium 8.95, Total Bilirubin 0.19 L, AST 35.5, ALT 39.0, Alkaline Phosphatase 50.6 L, Total Protein 5.92 L, Albumin 3.28 L, Globulin 2.64, Albumin/Globulin Ratio 1.24 10/22/19 04:33: WBC 12.75 H, RBC 3.56 L, Hgb 11.1 L, Hct 33.5 L, MCV 94.1 H, MCH 31.2 H, MCHC 33.1, RDW Coeff of Az 14.9 H, Plt Count 358, Immature Gran % (Auto) 0.4, Neut % (Auto) 65.4, Lymph % (Auto) 19.4, [place] % (Auto) 12.2 H, Eos % (Auto) 2.4, Baso % (Auto) 0.2, Neut # (Auto) 8.3 H, Lymph # (Auto) 2.5, [place] # (Auto) 1.6, Eos # (Auto) 0.3, Baso # (Auto) 0.0, Immature Gran # (Auto) 0.1 ASSESSMENT: Please see below. 1. Pulmonary edema 2. CHF ejection fraction 25% 3. Hyponatremia PLAN: 1. Wean O2 as tolerated 2. three O2 evaluation 3. Continue telemetry 4. Continue to monitor I&O 5. CBC and CMP in the morning Plan and coordination of the patient's care discussed in the presence of Palliative Care Physician and nurse. SCRIBED BY: Rogelio RAYGOZA scribed while in presence of service performed by Dr. Osei/Petrona Garzon APRN on 10/22/19 ([id number])
[2019-10-22] MEDS: ENTRESTO 24 MG-26 MG TABLET PO SCH ×2 (08:22→20:44)
[2019-10-22] MEDS: ASPIRIN EC PO SCH (08:22)
[2019-10-22] MEDS: LOVENOX SUBCUT SCH (08:22)
[2019-10-22] MEDS: ROCEPHIN 1 GM/50 ML D5W 1 GM/50 ML BAG IV SCH (08:22)
[2019-10-22] MEDS: GLUCOPHAGE PO SCH ×2 (08:22→17:07)
[2019-10-22] MEDS: LOPRESSOR PO SCH ×2 (08:22→20:44)
[2019-10-22] MEDS: HUMULIN R SUBCUT PRN (11:07)
[2019-10-22] MEDS: LIPITOR PO SCH (20:44)
[2019-10-23] MEDS: VENTOLIN HFA (PER PUFF-WITH SPACER) IH SCH ×3 (05:10→13:50)
[2019-10-23 05:37] LABS: HEMATOCRIT 33.5 % (42.0-52.0)
[2019-10-23] MEDS: PRILOSEC PO SCH (05:54)
[2019-10-23] MEDS: LASIX TAB PO SCH (05:54)
[2019-10-23 06:00] VITALS: BP 117/68; TEMP 98.6
[2019-10-23] MEDS: ENTRESTO 24 MG-26 MG TABLET PO SCH (08:14)
[2019-10-23] MEDS: LOVENOX SUBCUT SCH (08:15)
[2019-10-23] MEDS: ASPIRIN EC PO SCH (08:15)
[2019-10-23] MEDS: LOPRESSOR PO SCH (08:15)
[2019-10-23] MEDS: GLUCOPHAGE PO SCH (08:15)
--- NOTE | 2019-10-23 09:45 | PCM.PROG ---
Attending Provider: ATTENDING PROVIDER: Dr. RAMON OSEI This patient is seen with Summer Pyle, Nurse Practitioner. DATE OF SERVICE: 10/23/19 SUBJECTIVE: This 79 year old /WHITE M was hospitalized 10/16/19. Sitting in chair resting comfortably. He has been up and about without oxygen, will do three- step today. Blood pressure is stable. Sodium is stable. The patient is ready for discharge. REVIEW OF SYSTEMS: CONSTITUTIONAL: Weakness. No night sweats. No fatigue, malaise, lethargy. No fever or chills. HEENT: Eyes: No visual changes. No eye pain. No eye discharge. ENT: No runny nose. No epistaxis. No sinus pain. No odynophagia. No congestion. RESPIRATORY: No cough, no congestion. No hemoptysis. Shortness of breath with exertion. CARDIOVASCULAR: No angina symptoms. No CHF symptoms. No atypical chest pain for CAD. No palpitations. No orthopnea.. GASTROINTESTINAL: No abdominal pain. No nausea or vomiting. No diarrhea or constipation. No hematemesis. No hematochezia. GENITOURINARY: No urgency. No frequency. No dysuria. No hematuria. No obstructive symptoms. No discharge. No pain. No significant abnormal bleeding. MUSCULOSKELETAL: No musculoskeletal pain; no joint swelling. NEUROLOGICAL: Awake, alert, oriented to time, place and person. No headache. No neck pain. No syncope. No seizures. No dizziness. PSYCHIATRIC: Not anxious. No depression. No suicidal thoughts. No homicidal thoughts. SKIN: No rash. No lesions. No wounds. ENDOCRINE: No unexplained weight loss. No weight gain. HEMATOLOGIC/LYMPHATIC: No anemia. No purpura. No petechiae. No prolonged or excessive bleeding. No palpable lymph nodes. PHYSICAL EXAMINATION: GENERAL: The patient is awake, alert and oriented, lying/sitting in bed in no distress. VITAL SIGNS: Temperature 98.6 F, Pulse 75, Respiratory Rate 16, BP 117/68, Pulse Ox 97% HEENT: Head normocephalic, atraumatic. Eyes: Extraocular muscles are intact. Pupils are equal, round and reactive to light and accommodation. Ears: No lesions. Nose appeared normal. Throat: No exudate or erythema. NECK: Supple. No JVD, no carotid bruit. No lymphadenopathy or thyromegaly. LUNGS: Diminished breath sounds. Clear to auscultation. Percussion note normal. Chest symmetrical. HEART: S1, S2, no S3. No murmurs. No cyanosis or clubbing. No ascites. Pulses: Dorsalis pedis and posterior tibial pulses +1 to +2 both sides. ABDOMEN: Soft. Non-tender. Bowel sounds active. No CVA tenderness. No mass felt. EXTREMITIES: No edema. Full range of motion of all extremities, equal. NEUROLOGIC: No focal deficit. Cranial nerves II through XII are grossly intact. No headache, no double vision or headache. SKIN: Not dry. Intact. Turgor-normal. LYMPHATIC: No palpable lymph nodes/no lymphedema. MUSCULOSKELETAL: Normal joints with no swelling. Muscle tone is normal. LAB REVIEW: 10/23/19 05:30 10/23/19 05:30 10/23/19 05:30: Sodium 131.1 L, Potassium 4.24, Chloride 95.4 L, Carbon Dioxide 31.8 H, Anion Gap 8.14, BUN 18.0, Creatinine 0.87, Estimated GFR (MDRD) 84.00, BUN/Creatinine Ratio 20.68, Glucose 112.8 H, Calcium 9.02, Total Bilirubin 0.34, AST 30.6, ALT 34.4, Alkaline Phosphatase 51.5 L, Total Protein 6.06 L, Albumin 3.35 L, Globulin 2.71, Albumin/Globulin Ratio 1.23 10/23/19 05:30: WBC 11.97 H, RBC 3.62 L, Hgb 11.1 L, Hct 33.5 L, MCV 92.5, MCH 30.7, MCHC 33.1, RDW Coeff of Az 15.0 H, Plt Count 351, Immature Gran % (Auto) 0.4, Neut % (Auto) 66.2, Lymph % (Auto) 17.9, [place] % (Auto) 12.3 H, Eos % (Auto) 2.9, Baso % (Auto) 0.3, Neut # (Auto) 7.9 H, Lymph # (Auto) 2.1, [place] # (Auto) 1.5, Eos # (Auto) 0.4, Baso # (Auto) 0.0, Immature Gran # (Auto) 0.1 ASSESSMENT: Please see below. 1. Pulmonary edema, resolved. 2. CHF ejection fraction 25%. 3. Hyponatremia. PLAN: 1. Three-step prior to discharge. 2. Continue medications as they are. 3. CHF discussed in detail. 4. Home Health for PT/OT and for CHF education. 5. Will discharge home today. 6. Will see in the office next week. Plan and coordination of the patient's care discussed in the presence of Sales Center Associate and nurse. CONDITION: Stable SCRIBED BY: ELLIOTT JORDAN Raker Buffing Wheel scribed while in presence of service performed by Dr. Osei/Summer Pyle APRN on 10/23/19 ([id number])
--- NOTE | 2019-10-23 10:50 | CM.DICTOOL ---
ADMISSION: 10/16/19 13:36 DISCHARGE: OCTOBER 23, 2019 DATE OF SERVICE: 10/23/19 FINAL DIAGNOSIS ACUTE PULMONARY EDEMA DILATED CARDIOMYOPATHY WITH EF 25% HYPONATREMIA CHF HX: ACUTE SINUSITIS- 12/29/2018 METABOLIC SYNDROME DM TYPE 2 , 01/11 - A1C 5.9 CKD TYPE 2 COPD ASHD ESOPHAGEAL STRICTURE INTERMITTENT CONSTIPATION RT SCIATICA ANEMIA HTN BACK PAIN - BULGING DISC LAST VITALS Temp Pulse Resp BP Pulse Ox 98.6 F 75 16 117/68 97 10/23/19 05:59 10/23/19 05:59 10/23/19 05:59 10/23/19 05:59 10/23/19 05:59 TAKE THESE MEDICATIONS AT HOME Albuterol Sulfate (Ventolin Hfa (Per Puff-With Spacer)) 2 puff IH RTQID [facility] -- ( NEW) Last Admin: 10/23/19 05:10 Dose: 2 puff Aspirin (Aspirin Ec) 81 mg PO DAILYWM [facility] Last Admin: 10/23/19 08:15 Dose: 81 mg Atorvastatin Calcium (Lipitor) 40 mg PO BEDTIME [facility] Last Admin: 10/22/19 20:44 Dose: 40 mg Furosemide (Lasix Tab) 20 mg PO QDAC [facility] --- ( NEW) Last Admin: 10/23/19 05:54 Dose: 20 mg Metformin HCl (Glucophage) 1,000 mg PO BIDWM [facility] Last Admin: 10/23/19 08:15 Dose: 1,000 mg Metoprolol Tartrate (Lopressor) 25 mg PO BID [facility] --- ( NEW) Last Admin: 10/23/19 08:15 Dose: 25 mg Omeprazole (Prilosec) 20 mg PO QDAC [facility] Last Admin: 10/23/19 05:54 Dose: 20 mg Sacubitril/Valsartan (Entresto 24 Mg-26 Mg Tablet) 1 each PO BID [facility] --- ( NEW) Last Admin: 10/23/19 08:14 Dose: 1 each ROLAIDS 2 TAB PO EVERY 4 HOURS PRN OMEGA 3 FISH OIL 1 CAP PO AT BEDTIME GARLIC 1000 MG PO BEDTIME ALLERGIES No Known Allergies Allergy (Verified 10/16/19 09:58) DISCONTINUED MEDICATIONS Lisinopril (Zestril) AMLODIPINE - OLMESARTAN ( [place]) NEW PRESCRIPTIONS: Albuterol Sulfate (Ventolin Hfa (Per Puff-With Spacer) ) 2 puff IH RTQID [facility] Furosemide (Lasix Tab) 20 mg PO QDAC [facility] Metoprolol Tartrate (Lopressor) 25 mg PO BID [facility] Sacubitril/Valsartan (Entresto 24 Mg-26 Mg Tablet) SMOKING: NON- APPLICABLE DISEASE SPECIFIC EDUCATION: PULMONARY EDEMA CHF HYPONATREMIA 2 GRAM NA, HEART HEALTHY 1500 ML FLUID RESTRICTION COVID LAB REVIEW: 10/23/19 05:30 10/23/19 05:30 10/23/19 05:30: Sodium 131.1 L, Potassium 4.24, Chloride 95.4 L, Carbon Dioxide 31.8 H, Anion Gap 8.14, BUN 18.0, Creatinine 0.87, Estimated GFR (MDRD) 84.00, BUN/Creatinine Ratio 20.68, Glucose 112.8 H, Calcium 9.02, Total Bilirubin 0.34, AST 30.6, ALT 34.4, Alkaline Phosphatase 51.5 L, Total Protein 6.06 L, Albumin 3.35 L, Globulin 2.71, Albumin/Globulin Ratio 1.23 10/23/19 05:30: WBC 11.97 H, RBC 3.62 L, Hgb 11.1 L, Hct 33.5 L, MCV 92.5, MCH 30.7, MCHC 33.1, RDW Coeff of Az 15.0 H, Plt Count 351, Immature Gran % (Auto) 0.4, Neut % (Auto) 66.2, Lymph % (Auto) 17.9, Owsley % (Auto) 12.3 H, Eos % (Auto) 2.9, Baso % (Auto) 0.3, Neut # (Auto) 7.9 H, Lymph # (Auto) 2.1, Owsley # (Auto) 1.5, Eos # (Auto) 0.4, Baso # (Auto) 0.0, Immature Gran # (Auto) 0.1 PLAN: DISCHARGE HOME TODAY OCTOBER 23, 2019 WITH [facility] REFERRAL, CONTACTED TA. PHONE # [phone] ACTIVITY: UP TOLERATED IN HOME WITH FREQUENT REST PERIODS, STAY HOME AND INDOORS. ACTIVITY MODIFICATIONS DIRECTED BY HOMEHEALTH THERAPY WEIGH DAILY: REPORT 2-3 OR MORE # IN 24 HOURS OR 5-7 OR MORE # IN A WEEK TO MD DIET : 2 GRAM NA, HEART HEALTHY 1500 ML 24 HOUR FLUID RESTRICTION FOLLOW UP: SEE DR. OSEI/ ELIDA PADILLA APRN/AVILA INGRAM APRN IN THE OFFICE ON WEDNESDAY, OCTOBER 30, 2019 @ 945 IN THE AM. CODE STATUS: DO NOT RESUSCITATE MR KIM IS ALERT AND ORIENTED X 4. REMAINS PLEASANT. ACTIVITY TOLERANCE HAS IMPROVED WITH ONLY SLIGHT EXERTIONAL SOA. TOOK SHOWER THIS AM, WALKED TO AND FROM WITH OUT O2. DID NOT QUALIFY FOR HOME O2 PER 3 STEP. SKIN WARM AND DRY AND INTACT. GENERAL SKIN COLOR IS PINK WITH GREAT IMPROVEMENT SINCE ADMISSION WHILE HE HAD A PALLOR/ SLIGHT ASHENED APPEARANCE. APPETITE IS FAIR TO GOOD. DOING WELL WITH THE 1500 ML FLUID RESTRICTION. NO I AND O DEFICITS. WEIGHT IS STABLE @ 180 # 12 OZ. ADMISSION WEIGHT WAS 182# 15 OZ AND GOT HIGH 184 #. HE IS UP AND AMBULATING ON OWN WITH SLIGHT WEAKNESS. DOES NOT USE AN ASSISTIVE DEVICE THOUGH HE HAS A CANE AT HOME. [facility] TO EVAL WITH A SN, DISEASE PROCESS, MED CHANGES AND O2 LEVELS. PT AND OT EVALS FOR ADLS AND IADLS ABILITY TO PERFORME SAFELY AND EFFECTIVELY. CONTINENT OF BOWEL AND BLADDER. LAST BM 10/22/2019. MD ELIDA PETERSON APRN ALYCE HANNAN, APRN
[2019-10-23] MEDS: HUMULIN R SUBCUT PRN (11:24)
--- NOTE | 2019-10-23 13:26 | HP ---
DATE OF SERVICE: 10/16/2019 REASON FOR HOSPITALIZATION/HISTORY OF PRESENT ILLNESS: This is an 79 year old white male who presented to the emergency room complaining of worsening shortness of breath. He was short of breath even when speaking. He has had some mild leg swelling. PAST MEDICAL HISTORY: Metabolic syndrome Diabetes Mellitus II, last A1c was 5.9 on 01/11 CKD stage 3 COPD Atherosclerotic heart disease History of esophageal stricture stretched by Dr. Tovar 11/09 Intermittent constipation Right sciatica History of anemia Hypertension ED Dyslipidemia PAST SURGICAL HISTORY: Esophageal stricture EGD 11/09 Colonoscopy 06/11 REVIEW OF SYSTEMS: CONSTITUTIONAL: No night sweats. No fatigue, malaise, lethargy. No fever or chills. Weakness. HEENT: Eyes: No visual changes. No eye pain. No eye discharge. ENT: No runny nose. No epistaxis. No sinus pain. No sore throat. No odynophagia. No ear pain. No congestion. RESPIRATORY: Cough, no congestion. No hemoptysis. Shortness of breath. CARDIOVASCULAR: No angina symptoms. No CHF symptoms. No atypical chest pain for CAD. No palpitations. No PND. No orthopnea. GASTROINTESTINAL: No abdominal pain. No nausea or vomiting. No diarrhea or constipation. No hematemesis. No hematochezia. GENITOURINARY: No urgency. No frequency. No dysuria. No hematuria. No obstructive symptoms. No discharge. No pain. No significant abnormal bleeding. MUSCULOSKELETAL: No musculoskeletal pain. No joint swelling. No arthritis. NEUROLOGICAL: No headache. No neck pain. No syncope. No seizures. No dizziness. PSYCHIATRIC: Not anxious. No depression. No suicidal thoughts. No homicidal thoughts. SKIN: No rash. No lesions. No wounds. Trace leg edema ENDOCRINE: No unexplained weight loss. No weight gain. HEMATOLOGIC/LYMPHATIC: No anemia. No purpura. No petechiae. No prolonged or excessive bleeding. No palpable lymph nodes. PERSONAL/FAMILY/SOCIAL HISTORY: Quit smoking in 1988. He is . His fell and broke her hip, she is actually in the [facility]pc, [facility]. He is her primary care advocate. She has dementia. No alcohol or illicit drug use. MEDICATIONS: Metformin 1000mg PO BID Lisinopril 40mg PO BEDTIME Ecotrin Low strength 81mg PO BEDTIME Daniella 5-40mg PO BEDTIME Fish oil 1000mg one capsule PO BEDTIME Garlic tablet 1000mg PO BEDTIME Lipitor 40mg BEDTIME Rolaids 550-110mg two tablets PO Q 4 Hours PRN Omeprazole Magnesium 20mg PO DAILY ALLERGIES: No known allergies PHYSICAL EXAMINATION: VITAL SIGNS: Temperature 98.1, blood pressure 137/68, pulse ox 86% on room air. HEENT: Head normocephalic, atraumatic. Eyes: Extraocular muscles are intact. Pupils are equal, round and reactive to light and accommodation. Ears: No lesions. Nose appeared normal. Throat: No exudate or erythema. NECK: Supple. No JVD, no carotid bruit. No lymphadenopathy or thyromegaly. LUNGS: Severely diminished breath sounds bilaterally. Visibly short of breath. Clear to auscultation. Percussion note normal. Chest symmetrical. HEART: S1, S2, no S3. No murmur. No cyanosis or clubbing. No ascites. Pulses: Dorsalis pedis and posterior tibial pulses +1 to +2 bilaterally. ABDOMEN: Soft. Nontender. Bowel sounds active. No CVA tenderness. No mass felt. EXTREMITIES: Trace leg edema. Full range of motion of all extremities, equal. NEUROLOGIC: No focal deficit. Cranial nerves II through XII are grossly intact. No headache, no double vision or headache. SKIN: Not dry. Intact. Turgor -Pallor LYMPHATIC: No palpable lymph nodes/no lymphedema. MUSCULOSKELETAL: Normal joints with no swelling. Muscle tone is normal. LABS: Chest x-ray shows pulmonary edema with small bilateral plural effusion. 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 Urine is trace protein, trace glucose. sodium 123, potassium 4.7, BUN 15, creatinine 0.9, glucose 219. AST 28, ALT 18, total protein 7.2. D-Dimer 2709. ABG on room air pH 7.328, pCo2 38, pO2 66, base excess -6. Bicarb 20.3, TCO2 21, o2 saturation 91. WBC 13.12, hgb 10.9, hct 32.0. Neutrophils 87, plt count 358. CT angiogram shows no evidence of pulmonary embolism. ASSESSMENT: 1. Acute pulmonary edema 2. Acute respiratory failure 3. Congestive heart failure 4. Hyponatremia 5. Diabetes Mellitus type 2 6. Metabolic syndrome 7. Chronic kidney disease stage 2 8. COPD 9. History of atherosclerotic heart disease 10.Hypertension 11.Anemia 12.Dyslipidemia PLAN: 1. The patient is to be admitted with Routine telemetry order 2. Serial EKGs 3. The patient is a DNR 4. Lasix 40mg IV now and then 20mg IV Q 12 hours 5. Normal saline at KVO IV 6. Lisinopril 5mg PO 7. Discontinue Lisinopril 40mg daily 8. Discontinue Hydrochlorothiazide 9. Start Lopressor 25mg BID 10. Continue Losartan at 50mg daily 11. Order for a 2D echo 12. CBC and CMP daily 13. Oxygen 1-2 liters nasal canula as needed 14. Repeat ABGs in one hour on oxygen 15. Regular diet 16. Elevate the legs 17. Sliding scale for insulin 18. Will monitor Accu-checks BID for Diabetes Mellitus type II 19. Continue other home medications Will follow closely. TIME SPENT: More than 70 minutes. MTDD
--- NOTE | 2019-10-23 14:20 | PN ---
DATE OF SERVICE: 10/21/19 SUBJECTIVE: The patient is doing well. He is up and about. Appetite has improved. No PND, no orthopnea, no palpitation. He looks better. He took a shower all by himself. Denied shortness of breath with it. REVIEW OF SYSTEMS: CONSTITUTIONAL: No night sweats. No fatigue, malaise, lethargy. No fever or chills. HEENT: Eyes: No visual changes. No eye pain. No eye discharge. ENT: No runny nose. No epistaxis. No sinus pain. No sore throat. No odynophagia. No congestion. RESPIRATORY: No cough, no congestion. No hemoptysis. Shortness of breath on exertion as usual for the last few days but much less. CARDIOVASCULAR: No angina symptoms. No CHF symptoms. No atypical chest pain for CAD. No palpitations. No PND. No orthopnea. GASTROINTESTINAL: Appetite has improved. No abdominal pain. No nausea or vomiting. No diarrhea or constipation. No hematemesis. No hematochezia. GENITOURINARY: No urgency. No frequency. No dysuria. No hematuria. No obstructive symptoms. No discharge. No pain. No significant abnormal bleeding. MUSCULOSKELETAL: No musculoskeletal pain; no joint swelling. NEUROLOGICAL: No headache. No neck pain. No syncope. No seizures. No dizziness. PSYCHIATRIC: Not anxious. No depression. No suicidal thoughts. No homicidal thoughts. SKIN: No rash. No lesions. No wounds. ENDOCRINE: No unexplained weight loss. No weight gain. HEMATOLOGIC/LYMPHATIC: No anemia. No purpura. No petechiae. No prolonged or excessive bleeding. No palpable lymph nodes. PHYSICAL EXAMINATION: VITAL SIGNS: Temperature 98.4, pulse 70, respiratory rate 15, BP 130/70. HEENT: Head normocephalic, atraumatic. Eyes: Extraocular muscles are intact. Pupils are equal, round and reactive to light and accommodation. Ears: No lesions. Nose appeared normal. Throat: No exudate or erythema. NECK: Supple. No JVD, no carotid bruit. No lymphadenopathy or thyromegaly. LUNGS: Decreased breath sounds but clear to auscultation. Percussion note normal. Chest symmetrical. HEART: S1, S2, no S3. No murmurs. No cyanosis or clubbing. No ascites. Pulses: Dorsalis pedis and posterior tibial pulses +1 to +2 bilaterally. ABDOMEN: Soft. Nontender. Bowel sounds active. No CVA tenderness. No mass felt. EXTREMITIES: No edema. Full range of motion of all extremities, equal. NEUROLOGIC: No focal deficit. Cranial nerves II through XII are grossly intact. No headache, no double vision or headache. SKIN: Not dry. Intact. Turgor - normal. LYMPHATIC: No palpable lymph nodes/no lymphedema. MUSCULOSKELETAL: Normal joints with no swelling. Muscle tone is normal. ASSESSMENT: 1. CHF under control. 2. Ischemic cardiomyopathy. 3. Episode of atrial fibrillation under control. 4. History of dyslipidemia. 5. Hypertension. 6. Hyponatremia. PLAN: 1. Continue to monitor CBC, CMP. The patient's sodium has gone up to 130. 2. CHF symptoms are under control. The patient is on Entresto. The side effects of Entresto discussed. 3. Medication changes discussed with the patient. 4. CHF discussed in detail. Education carried out about CHF. CONDITION: Stable. TIME SPENT: More than 30 minutes. Plan and coordination of the patient's care discussed in the presence of nurse. ERROL
--- NOTE | 2019-10-23 14:28 | PN ---
DATE OF SERVICE: 10/22/19 SUBJECTIVE: Mr. Talley was seen and examined with the nurse practitioner. The patient's condition has improved. His sodium is 131. PHYSICAL EXAMINATION: HEENT: Head normocephalic, atraumatic. Eyes: Extraocular muscles are intact. Pupils are equal, round and reactive to light and accommodation. Ears: No lesions. Nose appeared normal. Throat: No exudate or erythema. NECK: Supple. No JVD, no carotid bruit. No lymphadenopathy or thyromegaly. LUNGS: Decreased breath sounds but clear to auscultation. Percussion note normal. Chest symmetrical. HEART: S1, S2, no S3. No murmurs. No cyanosis or clubbing. No ascites. Pulses: Dorsalis pedis and posterior tibial pulses +1 to +2 bilaterally. ABDOMEN: Soft. Nontender. Bowel sounds active. No CVA tenderness. No mass felt. EXTREMITIES: No edema. Full range of motion of all extremities, equal. NEUROLOGIC: No focal deficit. Cranial nerves II through XII are grossly intact. No headache, no double vision or headache. SKIN: Not dry. Intact. Turgor - normal. LYMPHATIC: No palpable lymph nodes/no lymphedema. MUSCULOSKELETAL: Normal joints with no swelling. Muscle tone is normal. ASSESSMENT: The patient is feeling a lot better. CHF education carried out. TIME SPENT: More than 30 minutes. Plan and coordination of the patient's care discussed in the presence of nurse. ERROL
--- NOTE | 2019-10-23 14:32 | PN ---
DATE OF SERVICE: 10/20/19 SUBJECTIVE: The patient is up and about, took a shower and is feeling a lot better. REVIEW OF SYSTEMS: CONSTITUTIONAL: No night sweats. No fatigue, malaise, lethargy. No fever or chills. HEENT: Eyes: No visual changes. No eye pain. No eye discharge. ENT: No runny nose. No epistaxis. No sinus pain. No sore throat. No odynophagia. No congestion. RESPIRATORY: No cough, no congestion. No hemoptysis. Shortness of breath on exertion. CARDIOVASCULAR: No angina symptoms. No CHF symptoms. No atypical chest pain for CAD. No palpitations. No PND. No orthopnea. GASTROINTESTINAL: No abdominal pain. No nausea or vomiting. No diarrhea or constipation. No hematemesis. No hematochezia. GENITOURINARY: No urgency. No frequency. No dysuria. No hematuria. No obstructive symptoms. No discharge. No pain. No significant abnormal bleeding. MUSCULOSKELETAL: No musculoskeletal pain; no joint swelling. NEUROLOGICAL: No headache. No neck pain. No syncope. No seizures. No dizziness. PSYCHIATRIC: Not anxious. No depression. No suicidal thoughts. No homicidal thoughts. SKIN: No rash. No lesions. No wounds. ENDOCRINE: No unexplained weight loss. No weight gain. HEMATOLOGIC/LYMPHATIC: No anemia. No purpura. No petechiae. No prolonged or excessive bleeding. No palpable lymph nodes. PHYSICAL EXAMINATION: HEENT: Head normocephalic, atraumatic. Eyes: Extraocular muscles are intact. Pupils are equal, round and reactive to light and accommodation. Ears: No lesions. Nose appeared normal. Throat: No exudate or erythema. NECK: Supple. No JVD, no carotid bruit. No lymphadenopathy or thyromegaly. LUNGS: Decreased breath sounds bilaterally. No wheeze. Oxygen saturation more than 90% on room air. Clear to auscultation. Percussion note normal. Chest symmetrical. HEART: S1, S2, no S3. No murmurs. No cyanosis or clubbing. No ascites. Pulses: Dorsalis pedis and posterior tibial pulses +1 to +2 bilaterally. ABDOMEN: Soft. Nontender. Bowel sounds active. No CVA tenderness. No mass felt. EXTREMITIES: No edema. Full range of motion of all extremities, equal. NEUROLOGIC: No focal deficit. Cranial nerves II through XII are grossly intact. No headache, no double vision or headache. SKIN: Not dry. Intact. Turgor - normal. LYMPHATIC: No palpable lymph nodes/no lymphedema. MUSCULOSKELETAL: Normal joints with no swelling. Muscle tone is normal. ASSESSMENT: 1. CHF under control. The patient has poor ejection fraction on Entresto tolerating well. The patient's sodium is rising, is 129.9. His appetite seems to be improving. His overall status has improved. TIME SPENT: More than 30 minutes. Plan and coordination of the patient's care discussed in the presence of nurse. ERROL
--- NOTE | 2019-10-23 14:48 | PN ---
DATE OF SERVICE: 10/23/19 SUBJECTIVE: The patient was seen and examined with the nurse practitioner. The patient is up and about. REVIEW OF SYSTEMS: CONSTITUTIONAL: No night sweats. No fatigue, malaise, lethargy. No fever or chills. HEENT: Eyes: No visual changes. No eye pain. No eye discharge. ENT: No runny nose. No epistaxis. No sinus pain. No sore throat. No odynophagia. No congestion. RESPIRATORY: No cough, no congestion. No hemoptysis. No shortness of breath. CARDIOVASCULAR: No angina symptoms. No CHF symptoms. No atypical chest pain for CAD. No palpitations. No PND. No orthopnea. GASTROINTESTINAL: No abdominal pain. No nausea or vomiting. No diarrhea or constipation. No hematemesis. No hematochezia. GENITOURINARY: No urgency. No frequency. No dysuria. No hematuria. No obstructive symptoms. No discharge. No pain. No significant abnormal bleeding. MUSCULOSKELETAL: No musculoskeletal pain; no joint swelling. NEUROLOGICAL: No headache. No neck pain. No syncope. No seizures. No dizziness. PSYCHIATRIC: Not anxious. No depression. No suicidal thoughts. No homicidal thoughts. SKIN: No rash. No lesions. No wounds. ENDOCRINE: No unexplained weight loss. No weight gain. HEMATOLOGIC/LYMPHATIC: No anemia. No purpura. No petechiae. No prolonged or excessive bleeding. No palpable lymph nodes. PHYSICAL EXAMINATION: HEENT: Head normocephalic, atraumatic. Eyes: Extraocular muscles are intact. Pupils are equal, round and reactive to light and accommodation. Ears: No lesions. Nose appeared normal. Throat: No exudate or erythema. NECK: Supple. No JVD, no carotid bruit. No lymphadenopathy or thyromegaly. LUNGS: Decreased breath sounds. Clear to auscultation. Percussion note normal. Chest symmetrical. HEART: S1, S2, no S3. No murmurs. No cyanosis or clubbing. No ascites. Pulses: Dorsalis pedis and posterior tibial pulses +1 to +2 bilaterally. ABDOMEN: Soft. Nontender. Bowel sounds active. No CVA tenderness. No mass felt. EXTREMITIES: No pedal edema. Full range of motion of all extremities, equal. NEUROLOGIC: No focal deficit. Cranial nerves II through XII are grossly intact. No headache, no double vision or headache. SKIN: Not dry. Intact. Turgor - normal. LYMPHATIC: No palpable lymph nodes/no lymphedema. MUSCULOSKELETAL: Normal joints with no swelling. Muscle tone is normal. ASSESSMENT: 1. CHF UNDER CONTROL. CHF EDUCATION CARRIED OUT. ALSO CARRIED OUT EDUCATION FOR ENTRESTO. PLAN: 1. The patient is going to be discharged home on Lasix, Potassium and Entresto. PROGNOSIS: Guarded. CONDITION: Stable. TIME SPENT: More than 30 minutes. Plan and coordination of the patient's care discussed in the presence of nurse. ERROL
--- NOTE | 2019-10-23 14:50 | PN ---
BILLING 10/16/19 ADMISSION DAY LEVEL 5 10/17/19 EXTENSIVE 10/18/19 EXTENSIVE 10/19/19 INTERMEDIATE 10/20/19 INTERMEDIATE 10/21/19 INTERMEDIATE 10/22/19 INTERMEDIATE 10/23/19 DISCHARGE MTDD
--- NOTE | 2019-10-24 11:41 | DS ---
DATE OF SERVICE: 10/23/19 FINAL DIAGNOSIS: 1. ACUTE PULMONARY EDEMA 2. DILATED CARDIOMYOPATHY WITH EF 25% 3. HYPONATREMIA 4. CHF HX: 5. ACUTE SINUSITIS- 12/29/2018 6. METABOLIC SYNDROME 7. DM TYPE 2 , 01/11 - A1C 5.9 8. CKD TYPE 2 9. COPD 10. ASHD 11. ESOPHAGEAL STRICTURE 12. INTERMITTENT CONSTIPATION 13. RT SCIATICA 14. ANEMIA 15. HTN 16. BACK PAIN - BULGING DISC LAST VITALS Temp Pulse Resp BP Pulse Ox 98.6 F 75 16 117/68 97 10/23/19 05:59 10/23/19 05:59 10/23/19 05:59 10/23/19 05:59 10/23/19 05:59 DISCHARGE INSTRUCTIONS: 1. DISCHARGE HOME TODAY OCTOBER 23, 2019 WITH [facility] REFERRAL, CONTACTED TA. PHONE # [phone] 2. MD FOLLOW UP: SEE DR. OSEI/ ELIDA PADILLA APRN/AVILA INGRAM APRN IN THE OFFICE ON WEDNESDAY, OCTOBER 30, 2019 @ 945 IN THE AM. 3. CODE STATUS: DO NOT RESUSCITATE. MEDICATIONS AT DISCHARGE: Albuterol Sulfate (Ventolin Hfa (Per Puff-With Spacer)) 2 puff IH RTQID [facility] -- ( NEW) Last Admin: 10/23/19 05:10 Dose: 2 puff Aspirin (Aspirin Ec) 81 mg PO DAILYWM [facility] Last Admin: 10/23/19 08:15 Dose: 81 mg Atorvastatin Calcium (Lipitor) 40 mg PO BEDTIME [facility] Last Admin: 10/22/19 20:44 Dose: 40 mg Furosemide (Lasix Tab) 20 mg PO QDAC [facility] --- ( NEW) Last Admin: 10/23/19 05:54 Dose: 20 mg Metformin HCl (Glucophage) 1,000 mg PO BIDWM [facility] Last Admin: 10/23/19 08:15 Dose: 1,000 mg Metoprolol Tartrate (Lopressor) 25 mg PO BID [facility] --- ( NEW) Last Admin: 10/23/19 08:15 Dose: 25 mg Omeprazole (Prilosec) 20 mg PO QDAC [facility] Last Admin: 10/23/19 05:54 Dose: 20 mg Sacubitril/Valsartan (Entresto 24 Mg-26 Mg Tablet) 1 each PO BID [facility] --- ( NEW) Last Admin: 10/23/19 08:14 Dose: 1 each ROLAIDS 2 TAB PO EVERY 4 HOURS PRN OMEGA 3 FISH OIL 1 CAP PO AT BEDTIME GARLIC 1000 MG PO BEDTIME NEW PRESCRIPTIONS: Albuterol Sulfate (Ventolin Hfa (Per Puff-With Spacer) ) 2 puff IH RTQID [facility] Furosemide (Lasix Tab) 20 mg PO QDAC [facility] Metoprolol Tartrate (Lopressor) 25 mg PO BID [facility] Sacubitril/Valsartan (Entresto 24 Mg-26 Mg Tablet) DISCONTINUED MEDICATIONS: Lisinopril (Zestril) AMLODIPINE - OLMESARTAN ( [place]) DIET INSTRUCTIONS: 2 GRAM NA, HEART HEALTHY 1500 ML 24 HOUR FLUID RESTRICTION ACTIVITY: UP TOLERATED IN HOME WITH FREQUENT REST PERIODS, STAY HOME AND INDOORS. ACTIVITY MODIFICATIONS DIRECTED BY HOMEHEALTH THERAPY WEIGH DAILY: REPORT 2-3 OR MORE # IN 24 HOURS OR 5-7 OR MORE # IN A WEEK TO MD SMOKING: N/A DISEASE SPECIFIC EDUCATION: PULMONARY EDEMA CHF HYPONATREMIA 2 GRAM NA, HEART HEALTHY 1500 ML FLUID RESTRICTION [facility]SE: This is an 79-year-old white male who presented to the Emergency Room with shortness of breath. Chest x-ray showed pulmonary edema with small bilateral pleural effusions, mid bibasilar consolidation. He did not have any history of CHF. The chest CT showed no PE. Initially his sodium was 121, white count slightly elevated at 14. ABGs were abnormal with an 02 sat of 91, pH 7.328, pc02 38, p02 of 66, bicarb 20.3 on room air. He was found to have normal blood pressure. Temperature was normal. He was admitted with acute pulmonary edema. He was started on Lasix 20 mg IV push q.12hr, given Decadron 4 mg IM initially. He was initially placed on slow IV fluids due to the sodium, NS at 30 cc/hr. He was unsure of his home medications. Dr. Osei placed him on Lopressor, started him on Losartan as an unloading agent. The following day pro-BNP was found to be 20,000 which is to be expected. His sodium did not increase with regular fluids. The second day he had quite a bit of urine output due to the Lasix but the sodium had remained the same. We placed him on a hypertonic solution at 3% going at 30 cc/hr and did serial sodium levels. We were able to stop this at 30 when he was 131.1 which was after about 48 hours on the hypertonic solution. After two days of IV Lasix we then placed him on Lasix [address] Osei then performed an echo which showed ejection fraction of about 25 to 30%. Calcific aortic valves, enlarged left atrial cavity, akinetic septal wall with mild aortic stenosis. We then thought it best that we try him on Entresto. On the third day we placed him on the low dose Entresto 24-26 mg, Losartan has been discontinued. We decreased his Lasix to 20 mg p.o. daily. After starting the Entresto we were also then able to discontinue his fluids over the past 48 hours. His shortness of breath has steadily improved. Yesterday he came off oxygen, was able to be up and about with little to no exertion. Today he passed a three-step oxygen test. Potassium has remained stable after starting the Entresto and on low dose Lasix. His sodium has stayed stable after stopping the fluids at 131. We had discussed with him CHF, weighing daily. He did have refractory CHF, not much leg edema. We will do an overnight pulse ox to be done at home as he was dropping down into the 80s when he was here. Clinically, as he has significantly improved, he is more alert. Again he is eating well, up and about with little to now shortness of breath. Will send him home. He will have home health come in for nursing and PT/OT for strenghtening as well as CHF education. We have gone over his medications. They will continue the same. I have given him 30 day sample of Entresto. He is to continue that twice a day. Will follow up with him in the office next week. Again, he is discharged in stable condition. Vital signs have been stable. Sodium was stable today. Blood pressure has been good. Will follow up with him in the office next week. TIME SPENT: More than 60 minutes. ERROL
--- NOTE | 2019-11-12 14:14 | PN ---
DATE OF SERVICE: 10/20/2019 SUBJECTIVE: 79 year old white male hospitalized with acute respiratory failure with acute pulmonary edema with CHF. He has dilated cardiomyopathy. The patient still has shortness of breath on minimal exertion. During the course of the morning the patient went into atrial fibrillation with rate of 120 per minute. The patient at present time is mildly short of breath complaining of shortness of breath. He has distress. No fever, no chills, no PND. Mild orthopnea. REVIEW OF SYSTEMS: CONSTITUTIONAL: No night sweats. No fatigue, malaise, lethargy. No fever or chills. HEENT: Eyes: No visual changes. No eye pain. No eye discharge. ENT: No runny nose. No epistaxis. No sinus pain. No sore throat. No odynophagia. No congestion. RESPIRATORY: No cough, no congestion. No hemoptysis. No shortness of breath. CARDIOVASCULAR: No angina symptoms. No CHF symptoms. No atypical chest pain for CAD. No palpitations. No PND. No orthopnea. GASTROINTESTINAL: No abdominal pain. No nausea or vomiting. No diarrhea or constipation. No hematemesis. No hematochezia. GENITOURINARY: No urgency. No frequency. No dysuria. No hematuria. No obstructive symptoms. No discharge. No pain. No significant abnormal bleeding. MUSCULOSKELETAL: No musculoskeletal pain; no joint swelling. NEUROLOGICAL: No headache. No neck pain. No syncope. No seizures. No dizziness. PSYCHIATRIC: Not anxious. No depression. No suicidal thoughts. No homicidal thoughts. SKIN: No rash. No lesions. No wounds. ENDOCRINE: No unexplained weight loss. No weight gain. HEMATOLOGIC/LYMPHATIC: No anemia. No purpura. No petechiae. No prolonged or excessive bleeding. No palpable lymph nodes. PHYSICAL EXAMINATION: VITAL SIGNS: Temperature 97.8, pulse 90, respiratory rate 15, blood pressure 120 systolic, pulse ox 95% with 2 liters. HEENT: Head normocephalic, atraumatic. Eyes: Extraocular muscles are intact. Pupils are equal, round and reactive to light and accommodation. Ears: No lesions. Nose appeared normal. Throat: No exudate or erythema. NECK: Supple. No JVD, no carotid bruit. No lymphadenopathy or thyromegaly. LUNGS: Decreased breath sounds with mild expiratory wheeze. Clear to auscultation. Percussion note normal. Chest symmetrical. HEART: S1, S2, questionable S3. No murmurs. No cyanosis or clubbing. No ascites. Pulses: Dorsalis pedis and posterior tibial pulses +1 to +2 bilaterally. ABDOMEN: Soft. Nontender. Bowel sounds active. No CVA tenderness. No mass felt. EXTREMITIES: No edema. Full range of motion of all extremities, equal. NEUROLOGIC: No focal deficit. Cranial nerves II through XII are grossly intact. No headache, no double vision or headache. SKIN: Not dry. Intact. Turgor - normal. LYMPHATIC: No palpable lymph nodes/no lymphedema. MUSCULOSKELETAL: Normal joints with no swelling. Muscle tone is normal. LABS: hgb 10.5, hct 31, WBC 10,000 normal differential, creatinine 0.8, BUN 19. ASSESSMENT: 1. Acute pulmonary edema has resolved 2. CHF persistent one episode of atrial fibrillation which lasted a few minutes 3. Dilated cardiomyopathy with poor ejection fraction 4. History of diabetes mellitus 5. History of hypertension PLAN: 1. Continue Lipitor, Lovenox 2. Continue insulin coverage. Glucophage to be continued 1000 twice a day 3. Metoprolol 25mg twice a day 4. The patient is already on Entresto (Sacubitril/Valsartan) 24-26 BID 5. Zofran for nausea to be continued 6. Immediate plan is give IV 20mg Lasix, 3mg IV Morphine and 1 cc Decadron IM. 7. The patient is also on Rocephin for acute bronchitis which seems to be improving CONDITION FOR NOW IS STABLE BUT PROGNOSIS GUARDED TIME SPENT: More than 30 minutes. Plan and coordination of the patient's care discussed in the presence of nurse. ERROL
== END 2019-10-23 14:15 | disposition home health service (06) | DRG 204 ==
LOC: ED 09:44 → MEDSURG B 13:36
PROVIDERS: ADMIT Internal Medicine; ATTEND Internal Medicine
DX: I42.0 Dilated cardiomyopathy; R06.2 Wheezing; Z51.81 Encounter for therapeutic drug level monitoring; J81.0 Acute pulmonary edema; E88.81 Metabolic syndrome and other insulin resistance; D64.9 Anemia, unspecified; I48.91 Unspecified atrial fibrillation; R06.02 Shortness of breath; E11.9 Type 2 diabetes mellitus without complications; E78.5 Hyperlipidemia, unspecified; Z79.899 Other long term (current) drug therapy; M54.9 Dorsalgia, unspecified; I50.9 Heart failure, unspecified; J44.9 Chronic obstructive pulmonary disease, unspecified; E87.1 Hypo-osmolality and hyponatremia; N18.2 Chronic kidney disease, stage 2 (mild); M54.31 Sciatica, right side; F41.9 Anxiety disorder, unspecified; K59.00 Constipation, unspecified; I10 Essential (primary) hypertension; R53.1 Weakness; I25.10 Atherosclerotic heart disease of native coronary artery without angina pectoris; J96.00 Acute respiratory failure, unspecified whether with hypoxia or hypercapnia

== ENCOUNTER 2019-10-26 15:28 | Inpatient (IN) ==
--- NOTE | 2019-10-26 16:26 | ED.PDOC ---
General ED Provider: Dr. YOKO DODGE Chief Complaint: Shortness of Air Stated Complaint: comes to the Er with increasing shortness of breath for few days , He was admitted to last week with CHF exacerbation Time Seen by Physician: 04:15 Mode of Arrival: Walk-In Information Source: Patient Primary Care Provider: RAMON OSEI Nursing and Triage Documentation Reviewed and Agree: Yes Does patient meet sepsis criteria?: No System Inflammatory Response Syndrome: Not Applicable Sepsis Protocol: For patient's 13 years and over: Temp is 96.8 and below OR 101 and greater Pulse >90 BPM Resp >20/minute Acutely Altered Mental Status Are patient's symptoms suggestive of a new infection, such as: -Pneumonia -Skin, Soft Tissue -Endocarditis -UTI -Bone, Joint Infection -Implantable Device -Acute Abdominal Infection -Wound Infection -Meningitis -Blood Stream Catheter Infection -Unknown Review of Systems Review Of Systems Constitutional: Reports No symptoms Eyes: Reports No symptoms Ears, Nose, Mouth, Throat: Reports No symptoms Respiratory: Reports Short of air Cardiac: Reports Chest pain GI: Reports No symptoms : Reports No symptoms Musculoskeletal: Reports No symptoms Skin: Reports No symptoms Neurological: Reports Anxiety Endocrine: Reports No symptoms Hematologic/Lymphatic: Reports No symptoms All Other Systems: Reviewed and Negative [facility] Medical History (Updated 10/26/19 @ 17:59 by YOKO DODGE MD) ASHD (arteriosclerotic heart disease) CKD (chronic kidney disease) COPD (chronic obstructive pulmonary disease) Diabetes Hypertension Metabolic syndrome Sciatica of right side Skin cancer Stricture esophagus Family History (Updated 10/16/19 @ 16:02 by DION WEI RN) Mother Stroke Hypertension Diabetes FATHER Hypertension FATHER AMI (acute myocardial infarction) SISTER Cancer BROTHER Cardiac abnormality Physical Exam Physical Exam Appearance: Reports Well-nourished Ill-appearing: Mild Pain Distress: None Eyes: Reports Conjunctiva clear ENT: Reports Oropharynx normal Respiratory: Reports Airway patent and Crackles Cardiovascular: Reports Murmur (grade 2 /6) GI/: Reports Soft Musculoskeletal: Reports Edema Skin: Reports Warm and Dry Neurological: Reports Motor intact, Cranial nerves intact and Alert Psychiatric: Reports Anxious Interpretation Radiology Interpretation Radiology Interpretation By: Radiologist Radiology Results: No acute changes (Pulmonary vascular conjestion unchanged from last week) Exam Interpreted: Portable CXR EKG Interpretation Time of EKG #1: 16:29 Rate: Normal Rhythm: Sinus Ectopy: PACs [place]: NL ST Segment: Normal 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 Re-Evaluation Re-Evaluation Time of Re-Evaluation: 18:30 Status: Improved Physician Notification Case Discussed Physician Notified: Osei Time of Notification: 18:00 (acept to admit to floor on telemetry ) Critical Care Note Critical Care Note Total Time (mins): 40 Course Course Hematology/Chemistry: 10/26/19 16:35 10/26/19 16:35 Orders, Labs, Meds: Lab Review 10/26/19 10/26/19 10/26/19 16:35 16:35 16:46 WBC 11.71 H RBC 3.25 L Hgb 10.4 L Hct 29.8 L MCV 91.7 MCH 32.0 H MCHC 34.9 RDW Coeff of Az 15.2 H Plt Count 266 Immature Gran % (Auto) 0.3 Neut % (Auto) 67.3 Lymph % (Auto) 18.3 [place] % (Auto) 11.9 H Eos % (Auto) 2.0 Baso % (Auto) 0.2 Neut # (Auto) 7.9 H Lymph # (Auto) 2.1 [place] # (Auto) 1.4 Eos # (Auto) 0.2 Baso # (Auto) 0.0 Immature Gran # (Auto) 0.0 Puncture Site Rbrach O2 Saturation 93.0 L ABG pH 7.495 H ABG pCO2 35.3 ABG pO2 62.0 L ABG HCO3 27.2 H ABG Total CO2 28 ABG Base Excess 4 H FiO2 % 21.0 Sodium 130.3 L Potassium 4.18 Chloride 93.9 L Carbon Dioxide 28.3 Anion Gap 12.28 BUN 14.9 Creatinine 0.90 Estimated GFR (MDRD) 81.00 BUN/Creatinine Ratio 16.55 Glucose 116.8 H Calcium 9.45 Total Bilirubin 0.66 AST 31.6 ALT 24.5 Alkaline Phosphatase 51.5 L Total Creatine Kinase 48.8 L Troponin I 0.516 H* Total Protein 6.51 Albumin 3.71 Globulin 2.80 Albumin/Globulin Ratio 1.32 Orders Category Date Time Status ADMIT PATIENT INPATIENT .TO [facility] (MONITORED BED) ADMISSION 10/26/19 18:02 Active ABG DRAW REQUEST Stat CARDIO 10/26/19 16:46 Completed EKG-(ED ONLY) Stat CARDIO 10/26/19 16:19 Completed OXYGEN Routine CARDIO 10/26/19 17:53 Active BLOOD GLUCOSE MONITORING 0630,1100,1700,2100 CARE 10/26/19 18:02 Active TELEMETRY MONITORING TELE CARE 10/26/19 18:03 Active 2 GRAM SODIUM DIET DIETARY 10/26/19 Breakfast Ordered ED MUNICIPAL CLERK APPLIED .ONCE EMERGENCY 10/26/19 16:19 Active ED IV/MEDIPORT/POWERPORT .ONCE EMERGENCY 10/26/19 16:19 Active ABG Stat LAB 10/26/19 16:46 Completed CBC W/ AUTO DIFF DAILY@0600 LAB 10/27/19 06:00 Ordered CBC W/ AUTO DIFF DAILY@0600 LAB 10/28/19 06:00 Ordered CBC W/ AUTO DIFF Stat LAB 10/26/19 16:35 Completed COMPREHENSIVE METABOLIC PANEL DAILY@0600 LAB 10/27/19 06:00 Ordered COMPREHENSIVE METABOLIC PANEL DAILY@0600 LAB 10/28/19 06:00 Ordered COMPREHENSIVE METABOLIC PANEL Stat LAB 10/26/19 16:35 Completed CREATINE KINASE Q8H LAB 10/26/19 23:54 Ordered CREATINE KINASE Q8H LAB 10/27/19 07:54 Ordered CREATINE KINASE Stat LAB 10/26/19 16:35 Completed TROPONIN I Q8H LAB 10/26/19 23:54 Ordered TROPONIN I Q8H LAB 10/27/19 07:54 Ordered TROPONIN I Stat LAB 10/26/19 16:35 Completed 0.9 % Sodium Chloride [Saline Flush] MEDS 10/26/19 16:19 Active 1 syr IVF PRN PRN Acetaminophen [Tylenol] MEDS 10/26/19 17:53 Active 650 mg PO Q4H PRN Albuterol Inhaler(with Spacer) [Ventolin Hfa (Per Puff- MEDS 10/26/19 20:00 Active with Spacer)] 2 puff IH RTQID Aspirin [Aspirin EC] MEDS 10/26/19 21:00 Active 81 mg PO BEDTIME Atorvastatin Calcium [Lipitor] MEDS 10/26/19 21:00 Active 40 mg PO BEDTIME Enoxaparin Sodium [Lovenox] MEDS 10/27/19 09:00 Active 40 mg SUBCUT DAILY Furosemide [Lasix] MEDS 10/26/19 17:52 Discontinued 20 mg IVP ONCE STA Furosemide [Lasix] MEDS 10/27/19 06:30 Active 20 mg IVP QDAC Metformin HCl [Glucophage] MEDS 10/27/19 08:30 Active 1,000 mg PO BIDWM Metoprolol Tartrate [Lopressor] MEDS 10/26/19 21:00 Active 25 mg PO BID Morphine Sulfate [Morphine 4 mg/ml Syringe] MEDS 10/26/19 17:52 Discontinued 3 mg IVP ONCE STA [place]-3/Dha/Epa/Fish Oil [[place]-3 Fish Oil] MEDS 10/26/19 21:00 Active 1,000 mg PO BEDTIME Ondansetron HCl/Pf [Zofran 4 mg/2 ml] MEDS 10/26/19 17:53 Active 4 mg IVP Q6H PRN Sacubitril/Valsartan [Entresto 24 mg-26 mg Tablet] MEDS 10/26/19 21:00 Active 1 each PO BID Spironolactone [Aldactone] MEDS 10/26/19 17:53 Discontinued 25 mg PO ONCE STA Spironolactone [Aldactone] MEDS 10/27/19 09:00 Active 25 mg PO QAM garlic MEDS 10/26/19 21:00 Active 1,000 mg PO BEDTIME RESUSCITATION STATUS Routine OTHERS 10/26/19 17:53 Ordered CHEST, 1V AP ONLY Stat RADS 10/26/19 16:19 Completed Medications Generic Name Dose Route Start Last Admin Trade Name Freq PRN Reason Stop Dose Admin Acetaminophen 650 mg 10/26/19 17:53 Tylenol PO Q4H PRN Fever > 102 Albuterol Sulfate 2 puff 10/26/19 20:00 Ventolin Hfa (Per Puff-With Spacer) RTQID [facility] Aspirin 81 mg 10/26/19 21:00 Aspirin Ec PO BEDTIME [facility] Atorvastatin Calcium 40 mg 10/26/19 21:00 Lipitor PO BEDTIME [facility] Enoxaparin Sodium 40 mg 10/27/19 09:00 Lovenox SUBCUT DAILY [facility] Fish Oil 1,000 mg 10/26/19 21:00 [place]-3 Fish Oil PO BEDTIME SAMAN Furosemide 20 mg 10/27/19 06:30 Lasix IVP QDAC SAM[facility] Metformin HCl 1,000 mg 10/27/19 08:30 Glucophage PO BIDWM [facility] Metoprolol Tartrate 25 mg 10/26/19 21:00 Lopressor PO BID SAMAN Non-Formulary Medication 1,000 mg 10/26/19 21:00 Garlic PO BEDTIME [facility] Ondansetron HCl 4 mg 10/26/19 17:53 Zofran 4 Mg/2 Ml IVP Q6H PRN Nausea / Vomiting Sacubitril/Valsartan 1 each 10/26/19 21:00 Entresto 24 Mg-26 Mg Tablet PO BID SAMAN Sodium Chloride 1 syr 10/26/19 16:19 Saline Flush IVF PRN PRN To flush IV Spironolactone 25 mg 10/27/19 09:00 Aldactone PO QAM SAMAN Discontinued Medications Generic Name Dose Route Start Last Admin Trade Name Freq PRN Reason Stop Dose Admin Furosemide 20 mg 10/26/19 17:52 10/26/19 18:20 Lasix IVP 10/26/19 17:53 20 mg ONCE STA Administration Morphine Sulfate 3 mg 10/26/19 17:52 10/26/19 18:11 Morphine 4 Mg/Ml Syringe IVP 10/26/19 17:53 3 mg ONCE STA Administration Spironolactone 25 mg 10/26/19 17:53 10/26/19 18:24 Aldactone PO 10/26/19 17:54 25 mg ONCE STA Administration Vital Signs: Temp Pulse Resp BP Pulse Ox 10/26/19 15:31 97.6 F 85 20 119/65 91 L JERILYN Risk Score JERILYN Risk Score: Risk Score Odds of by 30D 0 0.1 (0.1-0.2) 1 0.3 (0.2-0.3) 2 0.4 (0.3-0.5) 3 0.7 (0.6-0.9) 4 1.2 (1.0-1.5) 5 2.2 (1.9-2.6) 6 3.0 (2.5-3.6) 7 4.8 (3.8-6.1) Discharge Plan Discharge Patient Disposition: ADMITTED INPATIENT Discharge Problem: Acute exacerbation of CHF (congestive heart failure) Qualifiers: Heart failure type: systolic Qualified Code(s): I50.23 - Acute on chronic systolic (congestive) heart failure ED Provider: YOKO DODGE Condition: Fair Discharge Date/Time: 10/26/19 19:00
[2019-10-26 16:39] LABS: HEMATOCRIT 29.8 % (42.0-52.0)
--- NOTE | 2019-10-26 16:52 | DI ---
EXAM: Single view of the chest. History: Short of breath Comparison: Chest radiograph 10/16/2019, chest CT 10/16/2019 Findings: Heart is enlarged. Persistent pulmonary edema and bilateral pleural effusions probably not significantly changed compared to the prior study. No pneumothorax. No acute osseous abnormalities . Atherosclerotic vascular calcifications. Impression: 1. Cardiomegaly with pulmonary edema and bilateral pleural effusions not significantly changed maulik red to the prior study
[2019-10-26] MEDS ORDERED: LASIX IVP STA (17:52)
[2019-10-26] MEDS ORDERED: MORPHINE 4 MG/ML SYRINGE IVP STA (17:52)
[2019-10-26] MEDS ORDERED: ZOFRAN 4 MG/2 ML IVP PRN (17:53)
[2019-10-26] MEDS ORDERED: TYLENOL PO PRN (17:53)
[2019-10-26] MEDS ORDERED: ALDACTONE PO STA (17:53)
[2019-10-26 19:29] VITALS: BMI 26.5
[2019-10-26] MEDS: VENTOLIN HFA (PER PUFF-WITH SPACER) IH SCH (19:40)
[2019-10-26] MEDS: ASPIRIN EC PO SCH (20:49)
[2019-10-26] MEDS: LIPITOR PO SCH (20:49)
[2019-10-26] MEDS: ENTRESTO 24 MG-26 MG TABLET PO SCH (20:49)
[2019-10-26] MEDS: OMEGA-3 FISH OIL PO SCH (20:49)
[2019-10-26] MEDS: NON-FORMULARY MEDICATION (Garlic 1,000 MG) PO SCH (20:53)
[2019-10-26] MEDS ORDERED: LOPRESSOR PO SCH (21:00)
[2019-10-27] MEDS: VENTOLIN HFA (PER PUFF-WITH SPACER) IH SCH ×4 (04:55→19:50)
[2019-10-27 05:15] LABS: HEMATOCRIT 32.8 % (42.0-52.0)
[2019-10-27] MEDS: LASIX IVP SCH (06:08)
[2019-10-27] MEDS: GLUCOPHAGE PO SCH ×2 (08:24→16:55)
[2019-10-27] MEDS: ENTRESTO 24 MG-26 MG TABLET PO SCH ×2 (08:24→20:39)
[2019-10-27] MEDS: LOPRESSOR PO SCH ×2 (08:24→20:39)
[2019-10-27] MEDS: LOVENOX SUBCUT SCH (08:25)
[2019-10-27] MEDS: ALDACTONE PO SCH (08:25)
[2019-10-27] MEDS ORDERED: MORPHINE 4 MG/ML SYRINGE IVP PRN (12:21)
[2019-10-27] MEDS: LIPITOR PO SCH (20:38)
[2019-10-27] MEDS: OMEGA-3 FISH OIL PO SCH (20:39)
[2019-10-27] MEDS: ASPIRIN EC PO SCH (20:39)
[2019-10-27] MEDS: NON-FORMULARY MEDICATION (Garlic 1,000 MG) PO SCH (21:04)
[2019-10-28] MEDS: VENTOLIN HFA (PER PUFF-WITH SPACER) IH SCH ×4 (04:55→19:45)
[2019-10-28] MEDS: LASIX IVP SCH (05:45)
[2019-10-28] MEDS: ALDACTONE PO SCH (08:17)
[2019-10-28] MEDS: ENTRESTO 24 MG-26 MG TABLET PO SCH ×2 (08:17→21:05)
[2019-10-28] MEDS: LOPRESSOR PO SCH ×2 (08:18→21:04)
[2019-10-28] MEDS: GLUCOPHAGE PO SCH ×2 (08:18→16:09)
[2019-10-28] MEDS: LOVENOX SUBCUT SCH (08:18)
[2019-10-28] MEDS: OMEGA-3 FISH OIL PO SCH (21:04)
[2019-10-28] MEDS: ASPIRIN EC PO SCH (21:04)
[2019-10-28] MEDS: LIPITOR PO SCH (21:05)
[2019-10-28] MEDS: NON-FORMULARY MEDICATION (Garlic 1,000 MG) PO SCH (21:32)
[2019-10-29] MEDS: VENTOLIN HFA (PER PUFF-WITH SPACER) IH SCH ×4 (04:45→19:45)
[2019-10-29 04:51] LABS: HEMATOCRIT 31.4 % (42.0-52.0)
[2019-10-29] MEDS: LASIX IVP SCH (05:42)
[2019-10-29] MEDS ORDERED: CITRATE OF MAGNESIA PO STA (08:05)
--- NOTE | 2019-10-29 08:27 | PCM.PROG ---
Attending Provider: ATTENDING PROVIDER: Dr. RAMON OSEI DATE OF SERVICE: 10/29/19 SUBJECTIVE: This 79 year old /WHITE M was hospitalized 10/26/19 with CHF exacerbation. Condition improved. He is feeling better. REVIEW OF SYSTEMS: CONSTITUTIONAL: No night sweats. No fatigue, malaise, lethargy. No fever or chills. HEENT: Eyes: No visual changes. No eye pain. No eye discharge. ENT: No runny nose. No epistaxis. No sinus pain. No odynophagia. No congestion. RESPIRATORY: No cough, no congestion. No hemoptysis. Shortness of breath on exertion. CARDIOVASCULAR: No angina symptoms. No CHF symptoms. No atypical chest pain for CAD. No palpitations. No orthopnea. GASTROINTESTINAL: No abdominal pain. No nausea or vomiting. No diarrhea or constipation. No hematemesis. No hematochezia. GENITOURINARY: No urgency. No frequency. No dysuria. No hematuria. No obstructive symptoms. No discharge. No pain. No significant abnormal bleeding. MUSCULOSKELETAL: No musculoskeletal pain; no joint swelling. NEUROLOGICAL: Awake, alert, oriented to time, place and person. No headache. No neck pain. No syncope. No seizures. No dizziness. PSYCHIATRIC: Not anxious. No depression. No suicidal thoughts. No homicidal thoughts. SKIN: No rash. No lesions. No wounds. ENDOCRINE: No unexplained weight loss. No weight gain. HEMATOLOGIC/LYMPHATIC: No anemia. No purpura. No petechiae. No prolonged or excessive bleeding. No palpable lymph nodes. PHYSICAL EXAMINATION: GENERAL: The patient is awake, alert and oriented, lying/sitting in bed in no distress. VITAL SIGNS: Temperature 97.7 F, Pulse 79, Respiratory Rate 18, BP 107/72, Pulse Ox 96% HEENT: Head normocephalic, atraumatic. Eyes: Extraocular muscles are intact. Pupils are equal, round and reactive to light and accommodation. Ears: No lesions. Nose appeared normal. Throat: No exudate or erythema. NECK: Supple. No JVD, no carotid bruit. No lymphadenopathy or thyromegaly. LUNGS: Decreased breath sounds. Clear to auscultation. Percussion note normal. Chest symmetrical. HEART: S1, S2, no S3. No murmurs. No cyanosis or clubbing. No ascites. Pulses: Dorsalis pedis and posterior tibial pulses +1 to +2 both sides. ABDOMEN: Soft. Non-tender. Bowel sounds active. No CVA tenderness. No mass felt. EXTREMITIES: Practically no edema noted. Full range of motion of all extremities, equal. NEUROLOGIC: No focal deficit. Cranial nerves II through XII are grossly intact. No headache, no double vision or headache. SKIN: Warm and dry. Intact. Turgor-normal. LYMPHATIC: No palpable lymph nodes/no lymphedema. MUSCULOSKELETAL: Normal joints with no swelling. Muscle tone is normal. LAB REVIEW: 10/29/19 04:30 10/29/19 04:30 10/29/19 04:30: Sodium 130.6 L, Potassium 4.33, Chloride 96.6 L, Carbon Dioxide 31.7 H, Anion Gap 6.63, BUN 13.5, Creatinine 0.95, Estimated GFR (MDRD) 76.00, BUN/Creatinine Ratio 14.21, Glucose 112.2 H, Calcium 9.04, Total Bilirubin 0.47, AST 26.6, ALT 19.5, Alkaline Phosphatase 45.4 L, Total Protein 5.90 L, Albumin 3.22 L, Globulin 2.68, Albumin/Globulin Ratio 1.20 10/29/19 04:30: WBC 10.73 H, RBC 3.41 L, Hgb 10.5 L, Hct 31.4 L, MCV 92.1, MCH 30.8, MCHC 33.4, RDW Coeff of Az 14.7, Plt Count 270, Immature Gran % (Auto) 0.3, Neut % (Auto) 68.9, Lymph % (Auto) 18.5, Cole % (Auto) 10.1 H, Eos % (Auto) 1.7, Baso % (Auto) 0.5, Neut # (Auto) 7.4 H, Lymph # (Auto) 2.0, Cole # (Auto) 1.1, Eos # (Auto) 0.2, Baso # (Auto) 0.1, Immature Gran # (Auto) 0.0 ASSESSMENT: Please see below. 1. Acute pulmonary edema seems to have resolved. 2. CHF, under control. 3. The patient has dilated cardiomyopathy with poor ejection fraction. PLAN: 1. Continue IV Lasix. 2. Metoprolol, Entresto. 3. Aldactone added. Plan and coordination of the patient's care discussed in the presence of [employer] Board and nurse. CONDITION: Stable EDUCATION: CHF education carried out. SCRIBED BY: ELLIOTT JORDAN Senior Information Security Engineer scribed while in presence of service performed by Dr. RAMON OSEI on 10/29/19 ([id number])
[2019-10-29] MEDS: ENTRESTO 24 MG-26 MG TABLET PO SCH ×2 (09:03→20:47)
[2019-10-29] MEDS: ALDACTONE PO SCH (09:03)
[2019-10-29] MEDS: LOPRESSOR PO SCH ×2 (09:04→20:47)
[2019-10-29] MEDS: LOVENOX SUBCUT SCH (09:04)
[2019-10-29] MEDS: GLUCOPHAGE PO SCH ×2 (09:04→17:13)
[2019-10-29] MEDS: ASPIRIN EC PO SCH (20:47)
[2019-10-29] MEDS: LIPITOR PO SCH (20:47)
[2019-10-29] MEDS: OMEGA-3 FISH OIL PO SCH (20:47)
[2019-10-29] MEDS: NON-FORMULARY MEDICATION (Garlic 1,000 MG) PO SCH (20:48)
[2019-10-30] MEDS: VENTOLIN HFA (PER PUFF-WITH SPACER) IH SCH ×4 (05:05→20:10)
[2019-10-30 05:09] LABS: HEMATOCRIT 35.2 % (42.0-52.0)
[2019-10-30] MEDS: LASIX IVP SCH (06:00)
--- NOTE | 2019-10-30 08:26 | HP ---
DATE OF SERVICE: 10/26/19 REASON FOR HOSPITALIZATION: CHF exacerbation. HISTORY OF PRESENT ILLNESS: 79-year-old white male was recently treated and discharged a few days ago, on 10/23/19 after being treated for pulmonary edema, dilated cardiomyopathy, congestive heart failure, hyponatremia. The patient was doing fine for a couple of days after discharge but then started feeling more short of breath with leg swelling. The patient has been living by himself with the help of son who visits him. The patient's is in the skilled nursing at [facility] with right hip fracture with replacement and she is demented. The patient says that he has taken his medications as prescribed but his activity level was up because he had to take care of his house and yard. His diet was off in the way of salt content. PAST MEDICAL/SURGICAL HISTORY: Acute pulmonary edema on 10/16/19 Dilated cardiomyopathy with ejection fraction 25% Hyponatremia Congestive heart failure Metabolic syndrome Diabetes mellitus type 2 CKD type 2 COPD ASHD Esophageal stricture Intermittent constipation Right sciatica Anemia Hypertension Degenerative disk disease of the L-spine REVIEW OF SYSTEMS: CONSTITUTIONAL: Weakness and fatigue. No night sweats. No malaise, lethargy. No fever or chills. HEENT: Eyes: No visual changes. No eye pain. No eye discharge. ENT: No runny nose. No epistaxis. No sinus pain. No sore throat. No odynophagia. No ear pain. No congestion. RESPIRATORY: Shortness of breath. Mild cough. No congestion. No hemoptysis. CARDIOVASCULAR: Shortness of breath, orthopnea. No chest pain No angina symptoms. No CHF symptoms. No palpitations. No PND. GASTROINTESTINAL: Appetite had improved but he is on the way down. No abdominal pain. No nausea or vomiting. No diarrhea or constipation. No hematemesis. No hematochezia. GENITOURINARY: No urgency. No frequency. No dysuria. No hematuria. No obstructive symptoms. No discharge. No pain. No significant abnormal bleeding. MUSCULOSKELETAL: No musculoskeletal pain. No joint swelling. No arthritis. NEUROLOGICAL: No headache. No neck pain. No syncope. No seizures. No dizziness. PSYCHIATRIC: Not anxious. No depression. No suicidal thoughts. No homicidal thoughts. SKIN: No rash. No lesions. No wounds. ENDOCRINE: No unexplained weight loss. No weight gain. HEMATOLOGIC/LYMPHATIC: No anemia. No purpura. No petechiae. No prolonged or excessive bleeding. No palpable lymph nodes. PERSONAL/FAMILY/SOCIAL HISTORY: The patient is , lives with his but not at the present time. His is in the skilled nursing. He does all activity of daily living. Nonsmoker. No alcohol abuse. He is taking care of his demented for the past several years. MEDICATIONS: Aspirin 81 p.o. daily Metformin 1000 twice a day Atorvastatin 40 mg daily Albuterol Pro-Air HFA two puffs q.i.d. Lasix 20 mg p.o. q.a.m. Metoprolol 25 mg twice a day Omeprazole 20 mg daily Entresto one tablet twice a day which is b.i.d. ALLERGIES: NKDA PHYSICAL EXAMINATION: GENERAL: The patient is oriented to time, place and person. The patient looks somewhat pale. VITAL SIGNS: Temperature 97, pulse 80, respiratory rate 18, BP 125/82, pulse ox 97%. HEENT: Head normocephalic, atraumatic. Eyes: Extraocular muscles are intact. Pupils are equal, round and reactive to light and accommodation. Ears: No lesions. Nose appeared normal. Throat: No exudate or erythema. NECK: Supple. No JVD, no carotid bruit. No lymphadenopathy or thyromegaly. LUNGS: Decreased breath sounds with few crepitations bilaterally. Clear to auscultation. Percussion note normal. Chest symmetrical. HEART: PMI not palpable on auscultation. S1, S2, Grade I/ systolic murmur. No cyanosis or clubbing. No ascites. Pulses: Radial and posterior tibial pulses +1 bilaterally. ABDOMEN: Soft. No ascites. Nontender. Bowel sounds active. No CVA tenderness. No mass felt. EXTREMITIES: Equal Pedal edema +1 to +2 pitting bilateral lower extremity. Full range of motion of all extremities, equal. RANGE EXAMINER: Entirely normal. SKIN: Not dry. Intact. Turgor - normal. LYMPHATIC: No palpable lymph nodes/no lymphedema. MUSCULOSKELETAL: Normal joints with no swelling. Muscle tone is normal. LABS: Hemoglobin 10, hematocrit 29, WBC 11,000, normal differential. Arterial blood gases: p02 62, pc02 35, pH 7.49 with 93% saturation on room air. Creatinine 0.9, BUN 14, potassium 4.1. Liver profile normal. Glucose 116, troponin 0.516 likely elevated. Chest x-ray cardiomegaly with pulmonary edema with bilateral pleural effusion. Not significantly changed compared to the prior study. ASSESSMENT: 1. CHF WITH MILD PULMONARY EDEMA WITH EFFUSION. 2. CHRONIC CHF. 3. DILATED CARDIOMYOPATHY WITH EJECTION FRACTION 25%. 4. HYPONATREMIA. 5. CHRONIC LUNG DISEASE. 6. CKD, TYPE 2. 7. ANEMIA. 8. HISTORY OF DIABETES MELLITUS. 9. ESOPHAGEAL STRICTURE. 10. RIGHT SCIATICA WITH DJD OF THE L-SPINE. 11. HYPERTENSION. 12. DYSLIPIDEMIA. 13. GENERALIZED ASHD. PLAN: 1. Start IV Lasix 20 mg. 2. Morphine Sulfate 3 mg now and as needed intermittently four hourly. 3. Elevate the lower extremity. 4. Reeducated about CHF and diet. 5. Continue Aspirin, Metformin and Atorvastatin, Metoprolol and Entresto. 6. New medication Aldactone 25 mg p.o. daily. 7. Monitor CBC and CMP daily. 8. Telemetry. 9. Daily EKGs. CONDITION: Stable. PROGNOSIS: Guarded. TIME SPENT: More than 70 minutes. MTDD
--- NOTE | 2019-10-30 08:34 | PN ---
DATE OF SERVICE: 10/26/19 SUBJECTIVE: The patient was admitted through the emergency room with complaint of being short of breath. The patient was recently discharged a few days ago with congestive heart failure. He was up and about, improved remarkably at home. The patient is living by himself, practically no help. The is in the senior living. He has a lot of stress. In the emergency room the patient had practically normal blood gases. The chest x-ray showed pulmonary edema, effusion. The patient's saturation is 93% on room air. The patient is a DNR. PHYSICAL EXAMINATION: HEENT: Head normocephalic, atraumatic. Eyes: Extraocular muscles are intact. Pupils are equal, round and reactive to light and accommodation. Ears: No lesions. Nose appeared normal. Throat: No exudate or erythema. NECK: JVP 2 cm. Supple. No carotid bruit. No lymphadenopathy or thyromegaly. LUNGS: Decreased breath sounds with a few crepitations to the bases. Percussion note normal. Chest symmetrical. HEART: S1, S2, questionable S3. No murmurs. No cyanosis or clubbing. No ascites. Pulses: Dorsalis pedis and posterior tibial pulses +1 to +2 bilaterally. ABDOMEN: Soft. Nontender. Bowel sounds active. No CVA tenderness. No mass felt. EXTREMITIES: No edema. Full range of motion of all extremities, equal. NEUROLOGIC: No focal deficit. Cranial nerves II through XII are grossly intact. No headache, no double vision or headache. SKIN: Not dry. Intact. Turgor - normal. LYMPHATIC: No palpable lymph nodes/no lymphedema. MUSCULOSKELETAL: Normal joints with no swelling. Muscle tone is normal. ASSESSMENT: 1. CHF. 2. DILATED CARDIOMYOPATHY. 3. DYSLIPIDEMIA. 4. HISTORY OF HYPERTENSION. PLAN: 1. Give 20 mg IV Lasix. 2. 3 mg IV Morphine Sulfate. 3. Continue the rest of the medications. 4. Put him on routine telemetry orders which include serial EKGs, cardiac markers. CONDITION: Stable at the present time. Prognosis is guarded/poor. TIME SPENT: More than 30 minutes. Plan and coordination of the patient's care discussed in the presence of nurse. ERROL
--- NOTE | 2019-10-30 08:50 | PN ---
DATE OF SERVICE: 10/27/19 SUBJECTIVE: 79-year-old white male hospitalized with CHF exacerbation. The patient's condition is stabilized. The son lives separately, a couple of miles away. The patient has been short of breath and has orthopnea. The patient says that the first couple of days he was alright at home but then started getting short of breath and does practically everything at home for himself. The is in the [facility] at [facility] after breaking her right hip. She had right hip replacement. The patient does all activity of daily living which I think is too much for him. I explained to the son about it, told him to give more help. REVIEW OF SYSTEMS: CONSTITUTIONAL: Feeling a lot better. No night sweats. No fatigue, malaise, lethargy. No fever or chills. HEENT: Eyes: No visual changes. No eye pain. No eye discharge. ENT: No runny nose. No epistaxis. No sinus pain. No sore throat. No odynophagia. No congestion. RESPIRATORY: No cough, no congestion. No hemoptysis. Less shortness of breath after given Morphine and IV Lasix. He put out a lot of urine. CARDIOVASCULAR: No angina symptoms. No CHF symptoms. No atypical chest pain for CAD. No palpitations. No PND. No orthopnea. GASTROINTESTINAL: No abdominal pain. No nausea or vomiting. No diarrhea or constipation. No hematemesis. No hematochezia. GENITOURINARY: No urgency. No frequency. No dysuria. No hematuria. No obstructive symptoms. No discharge. No pain. No significant abnormal bleeding. MUSCULOSKELETAL: No musculoskeletal pain; no joint swelling. NEUROLOGICAL: No headache. No neck pain. No syncope. No seizures. No dizziness. PSYCHIATRIC: Not anxious. No depression. No suicidal thoughts. No homicidal thoughts. SKIN: No rash. No lesions. No wounds. ENDOCRINE: No unexplained weight loss. No weight gain. HEMATOLOGIC/LYMPHATIC: No anemia. No purpura. No petechiae. No prolonged or excessive bleeding. No palpable lymph nodes. PHYSICAL EXAMINATION: GENERAL: The patient is oriented to time, place and person. VITAL SIGNS: Temperature 97, pulse 80, respiratory rate 18, blood pressure 125/80, pulse ox 97%. HEENT: Head normocephalic, atraumatic. Eyes: Extraocular muscles are intact. Pupils are equal, round and reactive to light and accommodation. Ears: No lesions. Nose appeared normal. Throat: No exudate or erythema. NECK: Supple. No JVD, no carotid bruit. No lymphadenopathy or thyromegaly. LUNGS: Decreased breath sounds but clear to auscultation. Percussion note normal. Chest symmetrical. HEART: S1, S2, no S3. No murmurs. No cyanosis or clubbing. No ascites. Pulses: Dorsalis pedis and posterior tibial pulses +1 to +2 bilaterally. ABDOMEN: Soft. Nontender. Bowel sounds active. No CVA tenderness. No mass felt. EXTREMITIES: No edema. Full range of motion of all extremities, equal. NEUROLOGIC: No focal deficit. Cranial nerves II through XII are grossly intact. No headache, no double vision or headache. SKIN: Not dry. Intact. Turgor - normal. LYMPHATIC: No palpable lymph nodes/no lymphedema. MUSCULOSKELETAL: Normal joints with no swelling. Muscle tone is normal. LABS: Hemoglobin 11, hematocrit 32, WBC 10,000, normal differential. Creatinine 0.9, BUN 14, potassium 4.4, glucose 133. ASSESSMENT: 1. Congestive heart failure seems to be under control. PLAN: 1. The patient was given IV Lasix, has been given Aldactone along with Lasix. Continue the rest of the medications. Systolic blood pressure 125. Education about CHF carried out with son and also the patient again. The patient was explained that he needs to drink oral fluid or do what he needs, not in excess amount and keep the legs elevated. His leg edema is much better. All medications discussed especially Entresto along with combination of Aldactone and Lasix with Lopressor. CONDITION: Stable and improving. TIME SPENT: More than 60 minutes. Plan and coordination of the patient's care discussed in the presence of nurse. ERROL
[2019-10-30] MEDS: ENTRESTO 24 MG-26 MG TABLET PO SCH ×2 (08:54→20:09)
[2019-10-30] MEDS: GLUCOPHAGE PO SCH ×2 (08:55→17:06)
[2019-10-30] MEDS: ALDACTONE PO SCH (08:55)
[2019-10-30] MEDS: LOVENOX SUBCUT SCH (08:55)
--- NOTE | 2019-10-30 08:57 | PN ---
DATE OF SERVICE: 10/28/19 SUBJECTIVE: The patient was seen and examined this morning, is feeling a lot better. There was no PND, no orthopnea. Last night he slept well. REVIEW OF SYSTEMS: CONSTITUTIONAL: No night sweats. No fatigue, malaise, lethargy. No fever or chills. HEENT: Eyes: No visual changes. No eye pain. No eye discharge. ENT: No runny nose. No epistaxis. No sinus pain. No sore throat. No odynophagia. No congestion. RESPIRATORY: No cough, no congestion. No hemoptysis. Short of breath with little exertion. CARDIOVASCULAR: No angina symptoms. No CHF symptoms. No atypical chest pain for CAD. No palpitations. No PND. No orthopnea. GASTROINTESTINAL: No abdominal pain. No nausea or vomiting. No diarrhea or constipation. No hematemesis. No hematochezia. GENITOURINARY: No urgency. No frequency. No dysuria. No hematuria. No obstructive symptoms. No discharge. No pain. No significant abnormal bleeding. MUSCULOSKELETAL: No musculoskeletal pain; no joint swelling. NEUROLOGICAL: No headache. No neck pain. No syncope. No seizures. No dizziness. PSYCHIATRIC: Not anxious. No depression. No suicidal thoughts. No homicidal thoughts. SKIN: No rash. No lesions. No wounds. ENDOCRINE: No unexplained weight loss. No weight gain. HEMATOLOGIC/LYMPHATIC: No anemia. No purpura. No petechiae. No prolonged or excessive bleeding. No palpable lymph nodes. PHYSICAL EXAMINATION: VITAL SIGNS: Temperature 97.7, pulse 77, respiratory rate 18, BP 120/66, pulse ox 98% on 2L. HEENT: Head normocephalic, atraumatic. Eyes: Extraocular muscles are intact. Pupils are equal, round and reactive to light and accommodation. Ears: No lesions. Nose appeared normal. Throat: No exudate or erythema. NECK: Supple. No JVD, no carotid bruit. No lymphadenopathy or thyromegaly. LUNGS: Decreased breath sounds but clear to auscultation. Percussion note normal. Chest symmetrical. HEART: S1, S2, no S3. No murmurs. No cyanosis or clubbing. No ascites. Pulses: Dorsalis pedis and posterior tibial pulses +1 to +2 bilaterally. ABDOMEN: Soft. Nontender. Bowel sounds active. No CVA tenderness. No mass felt. EXTREMITIES: No edema at the present time. Full range of motion of all extremities, equal. NEUROLOGIC: No focal deficit. Cranial nerves II through XII are grossly intact. No headache, no double vision or headache. SKIN: Not dry. Intact. Turgor - normal. LYMPHATIC: No palpable lymph nodes/no lymphedema. MUSCULOSKELETAL: Normal joints with no swelling. Muscle tone is normal. LABS: Hemoglobin 10, hematocrit 30, WBC 8,900, normal differential. Creatinine 0.9, BUN 14, potassium 4.1. ASSESSMENT: 1. CHF seems to be under control. The patient had CHF exacerbation. PLAN: 1. Continue IV Lasix along with Aldactone. The patient's potassium is 4.1, kidney functions are still normal. 2. Will monitor the patient's CMP daily. 3. The patient's sodium is 130. The patient has refractory CHF. His sodium is going to be around 130. 4. CHF education carried out again. Advised to cut down on salt. Elevate the legs at night. TIME SPENT: More than 30 minutes. Plan and coordination of the patient's care discussed in the presence of nurse. ERROL
--- NOTE | 2019-10-30 09:02 | PCM.PROG ---
Attending Provider: ATTENDING PROVIDER: Dr. RAMON OSEI This patient is seen with Summer Pyle, Nurse Practitioner. DATE OF SERVICE: 10/30/19 SUBJECTIVE: This 79 year old /WHITE M was hospitalized 10/26/19. The patient is resting comfortably. Shortness of breath has improved. He s still wearing oxygen. He has been up and about walking. Leg edema has improved. Potassium is stable after adding Aldactone. REVIEW OF SYSTEMS: CONSTITUTIONAL: No night sweats. No fatigue, malaise, lethargy. No fever or chills. Weakness. HEENT: Eyes: No visual changes. No eye pain. No eye discharge. ENT: No runny nose. No epistaxis. No sinus pain. No odynophagia. No congestion. RESPIRATORY: No cough, no congestion. No hemoptysis. Shortness of breath with exertion. CARDIOVASCULAR: No angina symptoms. No CHF symptoms. No atypical chest pain for CAD. No palpitations. No orthopnea.. GASTROINTESTINAL: No abdominal pain. No nausea or vomiting. No diarrhea or constipation. No hematemesis. No hematochezia. GENITOURINARY: No urgency. No frequency. No dysuria. No hematuria. No obstru ctive symptoms. No discharge. No pain. No significant abnormal bleeding. MUSCULOSKELETAL: No musculoskeletal pain; no joint swelling. NEUROLOGICAL: Awake, alert, oriented to time, place and person. No headache. No neck pain. No syncope. No seizures. No dizziness. PSYCHIATRIC: Not anxious. No depression. No suicidal thoughts. No homicidal thoughts. SKIN: No rash. No lesions. No wounds. ENDOCRINE: No unexplained weight loss. No weight gain. HEMATOLOGIC/LYMPHATIC: No anemia. No purpura. No petechiae. No prolonged or excessive bleeding. No palpable lymph nodes. PHYSICAL EXAMINATION: GENERAL: The patient is awake, alert and oriented, lying/sitting in bed in no distress. VITAL SIGNS: Temperature 97.7 F, Pulse 71, Respiratory Rate 18, BP 107/67, Pulse Ox 96% HEENT: Head normocephalic, atraumatic. Eyes: Extraocular muscles are intact. Pupils are equal, round and reactive to light and accommodation. Ears: No lesions. Nose appeared normal. Throat: No exudate or erythema. NECK: Supple. No JVD, no carotid bruit. No lymphadenopathy or thyromegaly. LUNGS: Diminished breath sounds. Clear to auscultation. Percussion note normal. Chest symmetrical. HEART: S1, S2, no S3. Grade I/ systolic murmurs. No cyanosis or clubbing. No ascites. Pulses: Dorsalis pedis and posterior tibial pulses +1 to +2 both sides. ABDOMEN: Soft. Non-tender. Bowel sounds active. No CVA tenderness. No mass felt. EXTREMITIES: No edema. Full range of motion of all extremities, equal. NEUROLOGIC: No focal deficit. Cranial nerves II through XII are grossly intact. No headache, no double vision or headache. SKIN: Not dry. Intact. Turgor-normal. LYMPHATIC: No palpable lymph nodes/no lymphedema. MUSCULOSKELETAL: Normal joints with no swelling. Muscle tone is normal. LAB REVIEW: 10/30/19 04:40 10/30/19 04:40 10/30/19 04:40: Sodium 132.5 L, Potassium 4.49, Chloride 94.6 L, Carbon Dioxide 33.0 H, Anion Gap 9.39, BUN 16.4, Creatinine 0.97, Estimated GFR (MDRD) 74.00, BUN/Creatinine Ratio 16.90, Glucose 113.8 H, Calcium 9.39, Total Bilirubin 0.48, AST 25.1, ALT 18.8, Alkaline Phosphatase 51.3 L, Total Protein 6.77, Albumin 3.75, Globulin 3.02, Albumin/Globulin Ratio 1.24 10/30/19 04:40: WBC 11.94 H, RBC 3.80 L, Hgb 11.7 L, Hct 35.2 L, MCV 92.6, MCH 30.8, MCHC 33.2, RDW Coeff of Az 14.7, Plt Count 307, Immature Gran % (Auto) 0.3, Neut % (Auto) 65.4, Lymph % (Auto) 21.6, [place] % (Auto) 10.2 H, Eos % (Auto) 2.1, Baso % (Auto) 0.4, Neut # (Auto) 7.8 H, Lymph # (Auto) 2.6, [place] # (Auto) 1.2, Eos # (Auto) 0.3, Baso # (Auto) 0.1, Immature Gran # (Auto) 0.0 ASSESSMENT: Please see below. 1. Acute pulmonary edema seems to have resolved. 2. CHF, under control. 3. The patient has dilated cardiomyopathy with poor ejection fraction. PLAN: 1. Increase Entresto to two QAM and one in evening. 2. After today Lasix PO 20mg 3. Will monitor blood pressure and potassium Plan and coordination of the patient's care discussed in the presence of [employer] M[employer] Machine Operator and nurse. SCRIBED BY: ROSAURA BALBUENA Membership Assistant scribed while in presence of service performed by Dr. Osei/Summer Pyle APRN on 10/30/19 ([id number])
--- NOTE | 2019-10-30 09:11 | HP ---
DATE OF SERVICE: 10/27/19 HISTORY OF PRESENT ILLNESS: The patient is doing well. Unable to discharge him as the [facility]'t have IV Meropenem. The patient's cellulitis of the left foot has resolved. UTI has responded to combination of Amoxicillin and Meropenem. TIME SPENT: More than 70 minutes. GEETHAD
--- NOTE | 2019-10-30 09:16 | PN ---
DATE OF SERVICE: 10/27/19 HISTORY OF PRESENT ILLNESS: 84-year-old white male is doing well. Unable to discharge him as the senior care doesn't have IV Meropenem. The patient's cellulitis of the left foot has resolved. UTI has responded to combination of Amoxicillin and Meropenem. TIME SPENT: More than 70 minutes. GEETHAD
[2019-10-30] MEDS: LOPRESSOR PO SCH ×2 (10:17→20:09)
--- NOTE | 2019-10-30 13:53 | PN ---
DATE OF SERVICE: 10/30/19 SUBJECTIVE: The patient was seen and examined with the nurse practitioner. The patient's condition is stable. No symptoms of CHF, losing alot of fluids. No pedal edema noted. Education carried out about CHF. Condition: Stable. TIME SPENT: More than 30 minutes. Plan and coordination of the patient's care discussed in the presence of nurse. ERROL
[2019-10-30] MEDS: LIPITOR PO SCH (20:08)
[2019-10-30] MEDS: OMEGA-3 FISH OIL PO SCH (20:08)
[2019-10-30] MEDS: ASPIRIN EC PO SCH (20:09)
[2019-10-30] MEDS: NON-FORMULARY MEDICATION (Garlic 1,000 MG) PO SCH (20:09)
[2019-10-31] MEDS: VENTOLIN HFA (PER PUFF-WITH SPACER) IH SCH ×4 (04:35→19:30)
[2019-10-31 04:42] LABS: HEMATOCRIT 32.2 % (42.0-52.0)
[2019-10-31] MEDS ORDERED: LASIX TAB PO SCH (06:30)
[2019-10-31] MEDS: ALDACTONE PO SCH (08:22)
[2019-10-31] MEDS: GLUCOPHAGE PO SCH ×2 (08:23→17:27)
[2019-10-31] MEDS: ENTRESTO 24 MG-26 MG TABLET PO SCH ×2 (08:23→21:00)
[2019-10-31] MEDS: LOPRESSOR PO SCH ×2 (08:23→21:01)
[2019-10-31] MEDS: LOVENOX SUBCUT SCH (08:23)
[2019-10-31] MEDS: ASPIRIN EC PO SCH (21:00)
[2019-10-31] MEDS: OMEGA-3 FISH OIL PO SCH (21:01)
[2019-10-31] MEDS: LIPITOR PO SCH (21:01)
[2019-10-31] MEDS: NON-FORMULARY MEDICATION (Garlic 1,000 MG) PO SCH (21:31)
[2019-11-01] MEDS: VENTOLIN HFA (PER PUFF-WITH SPACER) IH SCH ×2 (04:55→10:10)
[2019-11-01 05:24] LABS: HEMATOCRIT 31.9 % (42.0-52.0)
[2019-11-01 06:09] VITALS: TEMP 97.8
[2019-11-01] MEDS ORDERED: LASIX TAB PO SCH (08:30)
--- NOTE | 2019-11-01 08:33 | PCM.PROG ---
Attending Provider: ATTENDING PROVIDER: Dr. RAMON OSEI This patient is seen with Summer Pyle, Nurse Practitioner. DATE OF SERVICE: 11/01/19 SUBJECTIVE: This 79 year old /WHITE M was hospitalized 10/26/19. The patient is feeling much better today. Shortness of breath has improved. He has been up and about walking. Will discharge to home. He has his two sons that are helping around the house. REVIEW OF SYSTEMS: CONSTITUTIONAL: No night sweats. Fatigue. No fever or chills. HEENT: Eyes: No visual changes. No eye pain. No eye discharge. ENT: No runny nose. No epistaxis. No sinus pain. No odynophagia. No congestion. RESPIRATORY: No cough, no congestion. No hemoptysis. No shortness of breath. CARDIOVASCULAR: No angina symptoms. No CHF symptoms. No atypical chest pain for CAD. No palpitations. No orthopnea.. GASTROINTESTINAL: No abdominal pain. No nausea or vomiting. No diarrhea or constipation. No hematemesis. No hematochezia. GENITOURINARY: No urgency. No frequency. No dysuria. No hematuria. No obstructive symptoms. No discharge. No pain. No significant abnormal bleeding. MUSCULOSKELETAL: No musculoskeletal pain; no joint swelling. NEUROLOGICAL: Awake, alert, oriented to time, place and person. No headache. No neck pain. No syncope. No seizures. No dizziness. PSYCHIATRIC: Not anxious. No depression. No suicidal thoughts. No homicidal thoughts. SKIN: No rash. No lesions. No wounds. ENDOCRINE: No unexplained weight loss. No weight gain. HEMATOLOGIC/LYMPHATIC: No anemia. No purpura. No petechiae. No prolonged or excessive bleeding. No palpable lymph nodes. PHYSICAL EXAMINATION: GENERAL: The patient is awake, alert and oriented, lying in bed in no distress. VITAL SIGNS: Temperature 97.8 F, Pulse 72, Respiratory Rate 18, BP 114/66, Pulse Ox 96% HEENT: Head normocephalic, atraumatic. Eyes: Extraocular muscles are intact. Pupils are equal, round and reactive to light and accommodation. Ears: No lesions. Nose appeared normal. Throat: No exudate or erythema. NECK: Supple. No JVD, no carotid bruit. No lymphadenopathy or thyromegaly. LUNGS: Diminished breath sounds. Clear to auscultation. Percussion note normal. Chest symmetrical. HEART: S1, S2, no S3. No murmurs. No cyanosis or clubbing. No ascites. Pulses: Dorsalis pedis and posterior tibial pulses +1 to +2 both sides. ABDOMEN: Soft. Non-tender. Bowel sounds active. No CVA tenderness. No mass felt. EXTREMITIES: No edema. Full range of motion of all extremities, equal. NEUROLOGIC: No focal deficit. Cranial nerves II through XII are grossly intact. No headache, no double vision or headache. SKIN: Not dry. Intact. Turgor-normal. LYMPHATIC: No palpable lymph nodes/no lymphedema. MUSCULOSKELETAL: Normal joints with no swelling. Muscle tone is normal. LAB REVIEW: 11/01/19 04:53 11/01/19 04:53 11/01/19 04:53: Sodium 130.9 L, Potassium 4.32, Chloride 96.2 L, Carbon Dioxide 29.1, Anion Gap 9.92, BUN 16.7, Creatinine 0.88, Estimated GFR (MDRD) 83.00, BUN/Creatinine Ratio 18.97, Glucose 117.2 H, Calcium 9.22, Total Bilirubin 0.58, AST 27.3, ALT 19.6, Alkaline Phosphatase 55.4 L, Total Protein 6.33, Albumin 3.50, Globulin 2.83, Albumin/Globulin Ratio 1.23 11/01/19 04:53: WBC 9.45, RBC 3.47 L, Hgb 10.8 L, Hct 31.9 L, MCV 91.9, MCH 31.1 H, MCHC 33.9, RDW Coeff of Az 14.7, Plt Count 256, Immature Gran % (Auto) 0.3, Neut % (Auto) 69.4, Lymph % (Auto) 17.4, [place] % (Auto) 10.6 H, Eos % (Auto) 1.9, Baso % (Auto) 0.4, Neut # (Auto) 6.6, Lymph # (Auto) 1.6, [place] # (Auto) 1.0, Eos # (Auto) 0.2, Baso # (Auto) 0.0, Immature Gran # (Auto) 0.0 ASSESSMENT: Please see below. 1. Acute CHF 2. Acute pulmonary edema seems to have resolved. 3. The patient has dilated cardiomyopathy with poor ejection fraction. PLAN: 1. Discharge home 2. Entresto - two in the morning and then one at bedtime 3. We added Aldactone 20mg in the morning 4. Continue Lasix 20mg PO daily 5. Blood pressure has remained stable along with Sodium 6. Have discussed CHF in detail and instructed patient to weigh daily and notify us if there is a 3 pound weight gain 7. Home Health to continue Plan and coordination of the patient's care discussed in the presence of Corporation Lawyer and nurse. SCRIBED BY: Rogelio RAYGOZA scribed while in presence of service performed by Dr. Osei/Summer Pyle APRN on 11/01/19 ([id number])
[2019-11-01] MEDS: ALDACTONE PO SCH (09:08)
[2019-11-01] MEDS: ENTRESTO 24 MG-26 MG TABLET PO SCH (09:08)
[2019-11-01] MEDS: GLUCOPHAGE PO SCH (09:08)
[2019-11-01] MEDS: LOVENOX SUBCUT SCH (09:09)
[2019-11-01 09:18] VITALS: BP 108/66
[2019-11-01] MEDS: LOPRESSOR PO SCH (09:24)
--- NOTE | 2019-11-01 10:30 | PN ---
DATE OF SERVICE: 10/31/2019 SUBJECTIVE: 79 year old white male hospitalized with CHF exacerbation. The patient is going a lot better. He has been walking by himself. Oxygen saturation is staying more than 90% on room air. REVIEW OF SYSTEMS: CONSTITUTIONAL: No night sweats. No fatigue, malaise, lethargy. No fever or chills. HEENT: Eyes: No visual changes. No eye pain. No eye discharge. ENT: No runny nose. No epistaxis. No sinus pain. No sore throat. No odynophagia. No congestion. RESPIRATORY: No cough, no congestion. No hemoptysis. Shortness of breath on exertion less than before. CARDIOVASCULAR: No angina symptoms. No CHF symptoms. No atypical chest pain for CAD. No palpitations. No PND. No orthopnea. GASTROINTESTINAL: No abdominal pain. No nausea or vomiting. No diarrhea or constipation. No hematemesis. No hematochezia. GENITOURINARY: No urgency. No frequency. No dysuria. No hematuria. No obstructive symptoms. No discharge. No pain. No significant abnormal bleeding. MUSCULOSKELETAL: No musculoskeletal pain; no joint swelling. NEUROLOGICAL: No headache. No neck pain. No syncope. No seizures. No dizziness. PSYCHIATRIC: Not anxious. No depression. No suicidal thoughts. No homicidal thoughts. SKIN: No rash. No lesions. No wounds. ENDOCRINE: No unexplained weight loss. No weight gain. HEMATOLOGIC/LYMPHATIC: No anemia. No purpura. No petechiae. No prolonged or excessive bleeding. No palpable lymph nodes. PHYSICAL EXAMINATION: GENERAL: The patient is oriented to time, place and person. VITAL SIGNS: Temperature 97.8, pulse 70. respiratory rate 18, blood pressure 107/63 and pulse ox 97%. HEENT: Head normocephalic, atraumatic. Eyes: Extraocular muscles are intact. Pupils are equal, round and reactive to light and accommodation. Ears: No lesions. Nose appeared normal. Throat: No exudate or erythema. NECK: Supple. No JVD, no carotid bruit. No lymphadenopathy or thyromegaly. LUNGS: Decreased breath sounds but clear with few crepitations. Percussion note normal. Chest symmetrical. HEART: S1, S2, no S3. No murmurs. No cyanosis or clubbing. No ascites. Pulses: Dorsalis pedis and posterior tibial pulses +1 to +2 bilaterally. ABDOMEN: Soft. Nontender. Bowel sounds active. No CVA tenderness. No mass felt. EXTREMITIES: No edema. Full range of motion of all extremities, equal. NEUROLOGIC: No focal deficit. Cranial nerves II through XII are grossly intact. No headache, no double vision or headache. SKIN: Not dry. Intact. Turgor - normal. LYMPHATIC: No palpable lymph nodes/no lymphedema. MUSCULOSKELETAL: Normal joints with no swelling. Muscle tone is normal. LABS: Hgb 10.7, hct 32, WBC 10,000 normal differential, creatinine 0.9, BUN 19, potassium 4.6. ASSESSMENT: 1. CHF exacerbation under control PLAN: 1. CHF education carried out. The patient is strongly advised to walk at home. 2. At home the patient is going to be advised to cut down on salt intake 3. Elevate the legs 4. New medication is Aldactone and Entresto has been added one more dose instead one he will be taking two 24-26mg Entresto in the morning and one at night. 5. The patient's potassium and creatinine and BUN are staying steady. CONDITION: Stable TIME SPENT: More than 30 minutes. Plan and coordination of the patient's care discussed in the presence of nurse. ERROL
--- NOTE | 2019-11-01 10:32 | CM.DICTOOL ---
ADMISSION: 10/26/19 18:05 DISCHARGE: NOVEMBER 01, 2019 DATE OF SERVICE: 11/01/19 FINAL DIAGNOSIS ACUTE PULMONARY EDEMA SEEMS TO HAVE RESOLVED CHF,UNDER CONTROL DILATED CARDIOMYOPATHY WITH POOR EJECTION FRACTION HX: ACUTE PULMONARY EDEMA DILATED CARDIOMYOPATHY WITH EF 25% HYPONATREMIA CHF ACUTE SINUSITIS- 12/29/2018 METABOLIC SYNDROME DM TYPE 2 , 01/11 - A1C 5.9 CKD TYPE 2 COPD ASHD ESOPHAGEAL STRICTURE INTERMITTENT CONSTIPATION RT SCIATICA ANEMIA HTN BACK PAIN - BULGING DISC LAST VITALS Temp Pulse Resp BP Pulse Ox 97.8 F 72 18 108/66 96 11/01/19 06:00 11/01/19 06:00 11/01/19 06:00 11/01/19 09:17 11/01/19 06:00 TAKE THESE MEDICATIONS AT HOME Albuterol Sulfate (Ventolin Hfa (Per Puff-With Spacer)) 2 puff IH QID Last Admin: 11/01/19 04:55 Dose: 2 puff Aspirin (Aspirin Ec) 81 mg PO BEDTIME [facility] Last Admin: 10/31/19 21:00 Dose: 81 mg Atorvastatin Calcium (Lipitor) 40 mg PO BEDTIME [facility] Last Admin: 10/31/19 21:01 Dose: 40 mg Fish Oil ([place]-3 Fish Oil) 1,000 mg PO BEDTIME [facility] Last Admin: 10/31/2019 21:00 Furosemide (Lasix Tab) 20 mg PO QDAC [facility] Last Admin: 11/01/19 09:08 Dose: 20 mg Metformin HCl (Glucophage) 1,000 mg PO BIDWM [facility] Last Admin: 11/01/19 09:08 Dose: 1,000 mg Metoprolol Tartrate (Lopressor) 25 mg PO BID [facility] Last Admin: 10/31/19 21:01 Dose: 25 mg Non-Formulary Medication (Garlic) 1,000 mg PO BEDTIME [facility] Last Admin: 10/31/19 21:31 Dose: Not Given Sacubitril/Valsartan (Entresto 24 Mg-26 Mg Tablet) 2 each PO DAILY [facility] Last Admin: 11/01/19 09:08 Dose: 2 each Sacubitril/Valsartan (Entresto 24 Mg-26 Mg Tablet) 1 each PO BEDTIME [facility] Last Admin: 10/31/19 21:00 Dose: 1 each Spironolactone (Aldactone) 25 mg PO QAM [facility] Last Admin: 11/01/19 09:08 Dose: 25 mg CALCIUM CARBONATE- MAG HYDROXID [ROLAIDS] 2 TAB PO Q 4 HOURS PRN ALLERGIES No Known Allergies Allergy (Verified 10/26/19 15:43) DISCONTINUED MEDICATIONS OMEPRAZOLE NEW PRESCRIPTIONS: ALDACTONE 25 MG PO DAILY ENTRESTO 24 MG / 26 MG TABLET 2 IN THE AM ( CHANGED) ENTRESTO 24 MG / 26MG TABLET 1 IN THE PM SMOKING: NON- APPLICABLE DISEASE SPECIFIC EDUCATION: CHF ALDACTONE COVID LAB REVIEW: 11/01/19 04:53 11/01/19 04:53 11/01/19 04:53: Sodium 130.9 L, Potassium 4.32, Chloride 96.2 L, Carbon Dioxide 29.1, Anion Gap 9.92, BUN 16.7, Creatinine 0.88, Estimated GFR (MDRD) 83.00, BUN/Creatinine Ratio 18.97, Glucose 117.2 H, Calcium 9.22, Total Bilirubin 0.58, AST 27.3, ALT 19.6, Alkaline Phosphatase 55.4 L, Total Protein 6.33, Albumin 3.50, Globulin 2.83, Albumin/Globulin Ratio 1.23 11/01/19 04:53: WBC 9.45, RBC 3.47 L, Hgb 10.8 L, Hct 31.9 L, MCV 91.9, MCH 31.1 H, MCHC 33.9, RDW Coeff of Az 14.7, Plt Count 256, Immature Gran % (Auto) 0.3, Neut % (Auto) 69.4, Lymph % (Auto) 17.4, [place] % (Auto) 10.6 H, Eos % (Auto) 1.9, Baso % (Auto) 0.4, Neut # (Auto) 6.6, Lymph # (Auto) 1.6, [place] # (Auto) 1.0, Eos # (Auto) 0.2, Baso # (Auto) 0.0, Immature Gran # (Auto) 0.0 PLAN: DISCHARGE HOME TODAY NOVEMBER 01, 2019 WITH [facility] SN RESUMPTION OF CARE ACTIVITY: WALK FREQUENTLY IN HOME. ELEVATE LOWER EXTREMITIES WHEN SITTING OR LYING DOWN STAY HOME EXCEPT FOR APPOINTMENTS. NO STRENUOUS ACTIVITY. STAY INDOORS DURING HOT WEATHER WEIGH DAILY IN THE AM. REPORT WEIGHT GAINS OF 3 LBS IN 24 HOURS OR 5-7 LBS IN A WEEK DIET: 2 GRAM SALT. BOOST GLUCOSE CONTROL 1 DAILY, 3 DAILY IF NOT EATING WELL. FOLLOW UP: SEE DR. OSEI/ ELIDA PADILLA APRN/ AVILA INGRAM APRN IN THE OFFICE, SATURDAY, NOVEMBER 04 @ 1709 CODE STATUS: DO NOT RESUSCITATE MR. KIM REMAINS ALERT AND ORIENTED X 4. HAS BEEN UP AND WALKING IN THE HALLWAY INDEPENDENTLY SEVERAL TIMES A DAY, TOLERATES WELL AND NO EXERTIONAL DYSPNEA. SKIN WARM, DRY, INTACT AND PINK. NUTRITIONAL INTAKE FAIR. 2 GRAM SALT AND BOOST SUPPLEMENTS ORDERED. CONTINENT OF BOWEL AND BLADDER. NO FURTHER LOOSE STOOLS. LAST BM " FIRMING UP " 10/31/2019. LIVES AT HOME WITH HIS WHOM HAS DEMENTIA. AT THE PRESENT HIS IS IN A REHAB CENTER IN [place] AFTER A FALL AND A LEG FRACTURE. HIS SON CHECKS ON HIM AND ASSIST. WILL CONTINUE [facility]. ADMITTING WEIGHT 179 # 14.3 OZ, DISCHARGE WEIGHT 168# 13.9 OZ. MD ELIDA PETERSON APRN ALYCE HANNAN, APRN
--- NOTE | 2019-11-01 11:17 | PN ---
DATE OF SERVICE: 11/01/2019 SUBJECTIVE: The patient was seen and examined with the Nurse Practitioner. The patient is up and about. No symptoms of CHF or coronary insufficiency. All the medications discussed with the patient. The new ones Aldactone and Entresto dose has been increased. Continue the rest of the medication as before. CONDITION: Stable. TIME SPENT: More than 30 minutes. Plan and coordination of the patient's care discussed in the presence of nurse. ERROL
--- NOTE | 2019-11-01 13:15 | PN ---
10/26/2019: Level 5 10/27/2019: Intermediate 10/28/2019: Intermediate 10/29/2019: Intermediate 10/30/2019: Intermediate 10/31/2019: D as in discharge MTDD
--- NOTE | 2019-11-01 13:15 | DS ---
DATE OF SERVICE: 11/01/2019 FINAL DIAGNOSIS: 1. ACUTE PULMONARY EDEMA SEEMS TO HAVE RESOLVED 2. CHF,UNDER CONTROL 3. DILATED CARDIOMYOPATHY WITH POOR EJECTION FRACTION HISTORY: 4. ACUTE PULMONARY EDEMA 5. DILATED CARDIOMYOPATHY WITH EF 25% 6. HYPONATREMIA 7. CHF 8. ACUTE SINUSITIS- 12/29/2018 9. METABOLIC SYNDROME 10. DM TYPE 2 , 01/11 - A1C 5.9 11. CHRONIC KIDNEY DISEASE TYPE 2 12. COPD 13. ASHD 14. ESOPHAGEAL STRICTURE 15. INTERMITTENT CONSTIPATION 16. RT SCIATICA 17. ANEMIA 18. HYPERTENSION 19. BACK PAIN - BULGING DISC LAST VITALS: Temp Pulse Resp BP Pulse Ox 97.8 F 72 18 108/66 96 11/01/19 06:00 11/01/19 06:00 11/01/19 06:00 11/01/19 09:17 11/01/19 06:00 DISCHARGE INSTRUCTIONS: DISCHARGE HOME TODAY NOVEMBER 01, 2019 WITH [facility] SN RESUMPTION OF CARE.MD FOLLOW UP: SEE DR. OSEI/ ELIDA PADILLA APRN/ AVILA INGRAM APRN IN THE OFFICE, TUESDAY, October @ 1145. CODE STATUS: DO NOT RESUSCITATE. TAKE THESE MEDICATIONS AT HOME: Albuterol Sulfate (Ventolin Hfa (Per Puff-With Spacer)) 2 puff IH QID Last Admin: 11/01/19 04:55 Dose: 2 puff Aspirin (Aspirin Ec) 81 mg PO BEDTIME [facility] Last Admin: 10/31/19 21:00 Dose: 81 mg Atorvastatin Calcium (Lipitor) 40 mg PO BEDTIME [facility] Last Admin: 10/31/19 21:01 Dose: 40 mg Fish Oil ([place]-3 Fish Oil) 1,000 mg PO BEDTIME [facility] Last Admin: 10/31/2019 21:00 Furosemide (Lasix Tab) 20 mg PO QDAC [facility] Last Admin: 11/01/19 09:08 Dose: 20 mg Metformin HCl (Glucophage) 1,000 mg PO BIDWM [facility] Last Admin: 11/01/19 09:08 Dose: 1,000 mg Metoprolol Tartrate (Lopressor) 25 mg PO BID [facility] Last Admin: 10/31/19 21:01 Dose: 25 mg Non-Formulary Medication (Garlic) 1,000 mg PO BEDTIME [facility] Last Admin: 10/31/19 21:31 Dose: Not Given Sacubitril/Valsartan (Entresto 24 Mg-26 Mg Tablet) 2 each PO DAILY [facility] Last Admin: 11/01/19 09:08 Dose: 2 each Sacubitril/Valsartan (Entresto 24 Mg-26 Mg Tablet) 1 each PO BEDTIME [facility] Last Admin: 10/31/19 21:00 Dose: 1 each Spironolactone (Aldactone) 25 mg PO QAM [facility] Last Admin: 11/01/19 09:08 Dose: 25 mg CALCIUM CARBONATE- MAG HYDROXID [ROLAIDS] 2 TAB PO Q 4 HOURS PRN ALLERGIES: No Known Allergies Allergy (Verified 10/26/19 15:43) DISCONTINUED MEDICATIONS: OMEPRAZOLE NEW PRESCRIPTIONS: ALDACTONE 25 MG PO DAILY ENTRESTO 24 MG / 26 MG TABLET 2 IN THE AM ( CHANGED) ENTRESTO 24 MG / 26MG TABLET 1 IN THE PM SMOKING: NON- APPLICABLE DISEASE SPECIFIC EDUCATION: CHF ALDACTONE COVID LAB REVIEW: 11/01/19 04:53 11/01/19 04:53 11/01/19 04:53: Sodium 130.9 L, Potassium 4.32, Chloride 96.2 L, Carbon Dioxide 29.1, Anion Gap 9.92, BUN 16.7, Creatinine 0.88, Estimated GFR (MDRD) 83.00, BUN/Creatinine Ratio 18.97, Glucose 117.2 H, Calcium 9.22, Total Bilirubin 0.58, AST 27.3, ALT 19.6, Alkaline Phosphatase 55.4 L, Total Protein 6.33, Albumin 3.50, Globulin 2.83, Albumin/Globulin Ratio 1.23 11/01/19 04:53: WBC 9.45, RBC 3.47 L, Hgb 10.8 L, Hct 31.9 L, MCV 91.9, MCH 31.1 H, MCHC 33.9, RDW Coeff of Az 14.7, Plt Count 256, Immature Gran % (Auto) 0.3, Neut % (Auto) 69.4, Lymph % (Auto) 17.4, [place] % (Auto) 10.6 H, Eos % (Auto) 1.9, Baso % (Auto) 0.4, Neut # (Auto) 6.6, Lymph # (Auto) 1.6, [place] # (Auto) 1.0, Eos # (Auto) 0.2, Baso # (Auto) 0.0, Immature Gran # (Auto) 0.0 ACTIVITY: WALK FREQUENTLY IN HOME. ELEVATE LOWER EXTREMITIES WHEN SITTING OR LYING DOWN STAY HOME EXCEPT FOR APPOINTMENTS. NO STRENUOUS ACTIVITY. STAY INDOORS DURING HOT WEATHER WEIGH DAILY IN THE AM. REPORT WEIGHT GAINS OF 3 LBS IN 24 HOURS OR 5-7 LBS IN A WEEK DIET: 2 GRAM SALT. BOOST GLUCOSE CONTROL 1 DAILY, 3 DAILY IF NOT EATING WELL. HOSPITAL COURSE: Mr. Talley was hospitalized with CHF type of symptoms. Chest x-ray showed pulmonary edema and he is being treated for CHF. He went home and alright for a couple of days after that he started having swelling of the legs and getting more short of breath with orthopnea. He is lives by himself and I think that he is doing too much at home and not watching his diet. His is in the long-term and son lives near by that just comes and visits him. The patient was given IV Lasix. Aldactone was added. Dose of the Entresto was increased. His condition has improved remarkable. He is feeling a lot better. He has no symptoms of CHF. CHF education carried out. His electrolytes were stable. The patient will continue to have mild hyponatremia because of chronic CHF, ejection fraction is poor. Wants DNR. PROGNOSIS: Guarded TIME SPENT: More than 60 minutes. MTDD
== END 2019-11-01 11:20 | disposition home health service (06) | DRG 292 ==
LOC: ED 15:28 → MEDSURG B 18:05
PROVIDERS: ADMIT Internal Medicine; ATTEND Internal Medicine
DX: E87.1 Hypo-osmolality and hyponatremia; E88.81 Metabolic syndrome and other insulin resistance; I50.23 Acute on chronic systolic (congestive) heart failure; I42.0 Dilated cardiomyopathy; E11.9 Type 2 diabetes mellitus without complications; I10 Essential (primary) hypertension; R06.02 Shortness of breath; Z51.81 Encounter for therapeutic drug level monitoring; E78.5 Hyperlipidemia, unspecified; J81.0 Acute pulmonary edema; M51.36 Other intervertebral disc degeneration, lumbar region; Z79.899 Other long term (current) drug therapy; R07.9 Chest pain, unspecified; J44.9 Chronic obstructive pulmonary disease, unspecified; F41.9 Anxiety disorder, unspecified; I25.10 Atherosclerotic heart disease of native coronary artery without angina pectoris; K22.2 Esophageal obstruction; M54.31 Sciatica, right side; N18.2 Chronic kidney disease, stage 2 (mild)

== ENCOUNTER 2019-11-11 10:29 | Inpatient (IN) ==
[2019-11-11 11:09] LABS: HEMATOCRIT 29.6 % (42.0-52.0)
[2019-11-11] MEDS ORDERED: ASPIRIN EC PO STA (11:45)
--- NOTE | 2019-11-11 11:45 | ED.PDOC ---
General ED Provider: Dr. DIPAK MARK Chief Complaint: Shortness of Air Stated Complaint: im sob again Time Seen by Physician: 13:09 Mode of Arrival: Walk-In Information Source: Patient Primary Care Provider: RAMON SAUCEDO Nursing and Triage Documentation Reviewed and Agree: Yes Does patient meet sepsis criteria?: No System Inflammatory Response Syndrome: Not Applicable Sepsis Protocol: For patient's 13 years and over: Temp is 96.8 and below OR 101 and greater Pulse >90 BPM Resp >20/minute Acutely Altered Mental Status Are patient's symptoms suggestive of a new infection, such as: -Pneumonia -Skin, Soft Tissue -Endocarditis -UTI -Bone, Joint Infection -Implantable Device -Acute Abdominal Infection -Wound Infection -Meningitis -Blood Stream Catheter Infection -Unknown Respiratory Complaint Exam Respiratory Complaint/Exam Onset/Duration: several days Symptoms Are: Still present Timing: Constant Initial Severity: Mild Current Severity: Mild Location: Chest Character: Reports Non-productive cough Associated Signs and Symptoms: Reports Dyspnea History of Healthcare-Acquired Pneumonia: No Tuberculosis Risk Factors: Reports Chronic Resp. Faliure Home Oxygen Use: Yes Recent Stress Test: No Recent Echo/LV Function: Yes Current Antibiotic Use: No Current Asthma Medication Use: No Respiratory Distress: None Inadequate Respiratory Effort: No Dysphagia Present: No Stridor Present: No JVD Present: No Accessory Muscle Use: No Retractions: Not Present Diminished Breath Sounds: No Sinus Tenderness: None Grunting Respirations: No Kussmaul Respirations: No Non-Traumatic Chest Pain Syncope: EKG Performed Review of Systems Review Of Systems Constitutional: Reports No symptoms Eyes: Reports No symptoms Ears, Nose, Mouth, Throat: Reports No symptoms Respiratory: Reports Short of air Cardiac: Reports No symptoms GI: Reports No symptoms : Reports No symptoms Musculoskeletal: Reports No symptoms Skin: Reports No symptoms Neurological: Reports No symptoms Endocrine: Reports No symptoms Hematologic/Lymphatic: Reports No symptoms All Other Systems: Reviewed and Negative [facility] Medical History ASHD (arteriosclerotic heart disease) CKD (chronic kidney disease) COPD (chronic obstructive pulmonary disease) Diabetes Hypertension Metabolic syndrome Sciatica of right side Skin cancer Stricture esophagus Family History Mother Stroke Hypertension Diabetes FATHER Hypertension FATHER AMI (acute myocardial infarction) SISTER Cancer BROTHER Cardiac abnormality Physical Exam Physical Exam Appearance: Reports Well-appearing Ill-appearing: None Pain Distress: None Eyes: Reports ALICE, EOMI and Conjunctiva clear ENT: Reports Ears normal, Nose normal and Oropharynx normal Neck: Supple Respiratory: Reports Airway patent, Breath sounds clear and Breath sounds equal Cardiovascular: Reports RRR, Pulses normal, No rub and No murmur GI/: Reports Soft, Nontender, No masses and Bowel sounds normal Musculoskeletal: Reports Normal strength, ROM intact and Edema Skin: Reports Warm, Dry and Normal color Neurological: Reports Sensation intact, Motor intact, Reflexes intact, Cranial nerves intact, Alert and Oriented Psychiatric: Reports Affect appropriate and Mood appropriate Interpretation Radiology Interpretation Radiology Interpretation By: ED Physician Radiology Results: Positive Exam Interpreted: Portable CXR EKG Interpretation Time of EKG #1: 11:44 Rate: Normal Rhythm: Sinus Ectopy: None [place]: NL ST Segment: Other Interpretation: st t wave changes Physician Notification Case Discussed Physician Notified: dr saucedo notified of admission Time of Notification: 11:59 Critical Care Note Critical Care Note Total Time (mins): 30 Course Course Hematology/Chemistry: 11/11/19 11:04 11/11/19 11:04 Orders, Labs, Meds: Lab Review 11/11/19 11/11/19 11/11/19 10:53 11:04 11:04 WBC 8.32 RBC 3.27 L Hgb 10.0 L Hct 29.6 L MCV 90.5 MCH 30.6 MCHC 33.8 RDW Coeff of Az 13.9 Plt Count 390 Immature Gran % (Auto) 0.2 Neut % (Auto) 67.9 Lymph % (Auto) 18.8 [place] % (Auto) 11.4 H Eos % (Auto) 1.2 Baso % (Auto) 0.5 Neut # (Auto) 5.7 Lymph # (Auto) 1.6 [place] # (Auto) 1.0 Eos # (Auto) 0.1 Baso # (Auto) 0.0 Immature Gran # (Auto) 0.0 Puncture Site Rbrach O2 Saturation 94.0 L ABG pH 7.434 ABG pCO2 35.0 ABG pO2 67.0 L ABG HCO3 23.4 ABG Total CO2 24 ABG Base Excess -1 FiO2 % 21.0 Sodium 125.5 L Potassium 4.84 Chloride 91.2 L Carbon Dioxide 24.3 Anion Gap 14.84 BUN 22.9 H Creatinine 1.02 Estimated GFR (MDRD) 70.00 BUN/Creatinine Ratio 22.45 Glucose 127.3 H Calcium 9.58 Total Bilirubin 0.44 AST 27.0 ALT 16.3 Alkaline Phosphatase 56.2 Total Creatine Kinase 55.1 Troponin I 0.285 H Total Protein 6.91 Albumin 3.93 Globulin 2.98 Albumin/Globulin Ratio 1.31 Orders Category Date Time Status [facility] AD[facility]ION 11/11/19 12:02 Active ABG DRAW REQUEST Stat CARDIO 11/11/19 10:53 Completed EKG-(ED ONLY) Stat CARDIO 11/11/19 10:53 Completed EKG-(IP & OP ONLY) DAILY CARDIO 11/12/19 06:00 Ordered EKG-(IP & OP ONLY) DAILY CARDIO 11/13/19 06:00 Ordered OXYGEN Routine CARDIO 11/11/19 12:03 Active BLOOD GLUCOSE MONITORING 0630,1100,1700,2100 CARE 11/11/19 12:06 Active INSERT SALINE LOCK ONCE CARE 11/11/19 12:03 Completed INTAKE & OUTPUT Q8HR CARE 11/11/19 12:03 Active TELEMETRY MONITORING TELE CARE 11/11/19 12:02 Active TELEMETRY MONITORING TELE CARE 11/11/19 12:03 Completed VITAL SIGNS Q8HR CARE 11/11/19 12:03 Active ED CRIMINAL PROFILER APPLIED .ONCE EMERGENCY 11/11/19 10:53 Active ABG Stat LAB 11/11/19 10:53 Completed BASIC METABOLIC PANEL DAILY@0600 LAB 11/12/19 06:00 Ordered BASIC METABOLIC PANEL DAILY@0600 LAB 11/13/19 06:00 Ordered CBC W/ AUTO DIFF DAILY@0600 LAB 11/12/19 06:00 Ordered CBC W/ AUTO DIFF DAILY@0600 LAB 11/13/19 06:00 Ordered CBC W/ AUTO DIFF Stat LAB 11/11/19 11:04 Completed COMPREHENSIVE METABOLIC PANEL Stat LAB 11/11/19 11:04 Completed CREATINE KINASE Q8H LAB 11/11/19 19:00 Ordered CREATINE KINASE Stat LAB 11/11/19 11:04 Completed TROPONIN I Q8H LAB 11/11/19 19:00 Ordered TROPONIN I Stat LAB 11/11/19 11:04 Completed 0.9 % Sodium Chloride [Saline Flush] MEDS 11/11/19 13:00 Active 1 syr IVF Q8HR Acetaminophen [Tylenol] MEDS 11/11/19 12:02 Active 650 mg PO Q4H PRN Aspirin [Aspirin EC] MEDS 11/11/19 11:45 Discontinued 325 mg PO ONCE STA Aspirin [Aspirin EC] MEDS 11/12/19 08:30 Active 81 mg PO DAILYWM Atropine Sulfate Inj [Atropine Sulfate Pfs] MEDS 11/11/19 12:02 Active 0.5 mg IVP ONCE PRN Insulin Regular, Human [Humulin R] MEDS 11/11/19 12:05 Active See Protocol SUBCUT PRN PRN Nitroglycerin [Nitrostat] MEDS 11/11/19 12:02 Active 0.4 mg SL Q5MIN X 3 DOSES PRN RESUSCITATION STATUS Routine OTHERS 11/11/19 12:01 Completed RESUSCITATION STATUS Routine OTHERS 11/11/19 12:02 Ordered CHEST, 1V AP ONLY Stat RADS 11/11/19 10:52 Completed Medications Generic Name Dose Route Start Last Admin Trade Name Freq PRN Reason Stop Dose Admin Acetaminophen 650 mg 11/11/19 12:02 Tylenol PO Q4H PRN Mild Pain Albuterol Sulfate 2 puff 11/11/19 13:00 Ventolin Hfa (Per Puff-With Spacer) IH QID SAMAN Aspirin 81 mg 11/12/19 08:30 Aspirin Ec PO DAILYWM SAMAN Aspirin 81 mg 11/11/19 21:00 Aspirin Ec PO BEDTIME SAMAN Atorvastatin Calcium 40 mg 11/11/19 21:00 Lipitor PO BEDTIME SAMAN Atropine Sulfate 0.5 mg 11/11/19 12:02 Atropine Sulfate Pfs IVP ONCE PRN Symptomatic Bradycardia Enoxaparin Sodium 40 mg 11/11/19 13:00 Lovenox SUBCUT DAILY [facility] Fish Oil 1,000 mg 11/11/19 21:00 Bow-3 Fish Oil PO BEDTIME SAMAN Furosemide 20 mg 11/12/19 09:00 Lasix Tab PO QAM [facility] Insulin Human Regular 0 unit 11/11/19 12:05 Humulin R SUBCUT PRN PRN Hyperglycemia Protocol Metoprolol Tartrate 25 mg 11/11/19 21:00 Lopressor PO BID SAMAN Nitroglycerin 0.4 mg 11/11/19 12:02 Nitrostat SL Q5MIN X 3 DOSES PRN Chest Pain Sacubitril/Valsartan 1 each 11/12/19 09:00 Entresto 24 Mg-26 Mg Tablet PO QAM SAMAN Sacubitril/Valsartan 0.5 each 11/11/19 21:00 Entresto 24 Mg-26 Mg Tablet PO BEDTIME SAMAN Sodium Chloride 1 syr 11/11/19 13:00 Saline Flush IVF Q8HR SAMAN Spironolactone 25 mg 11/12/19 09:00 Aldactone PO QAM [facility] Discontinued Medications Generic Name Dose Route Start Last Admin Trade Name Freq PRN Reason Stop Dose Admin Aspirin 325 mg 11/11/19 11:45 11/11/19 11:51 Aspirin Ec PO 11/11/19 11:46 325 mg ONCE STA Administration Enoxaparin Sodium 40 mg 11/11/19 12:30 Lovenox SUBCUT Q12H SAMAN Sacubitril/Valsartan 2 each 11/12/19 09:00 Entresto 24 Mg-26 Mg Tablet PO QAM [facility] Vital Signs: Temp Pulse Resp BP Pulse Ox 11/11/19 10:30 96.2 F L 91 H 17 110/64 94 L Discharge Plan Discharge Patient Disposition: ADMITTED INPATIENT Discharge Problem: Acute non-ST elevation myocardial infarction (NSTEMI) ED Provider: DIPAK MARK Condition: Stable Discharge Date/Time: 11/11/19 12:26
[2019-11-11] MEDS ORDERED: ATROPINE SULFATE PFS IVP PRN (12:02)
[2019-11-11] MEDS ORDERED: NITROSTAT SL PRN (12:02)
[2019-11-11] MEDS ORDERED: TYLENOL PO PRN (12:02)
--- NOTE | 2019-11-11 12:07 | DI ---
EXAM: Portable chest HISTORY: Dyspnea COMPARISON: Portable chest 10/26/2019 FINDINGS: / impression There is stable cardiomegaly. Atherosclerotic changes are seen involving the aortic arch. There are small bilateral pleural effusions with improving pulmonary edema
[2019-11-11] MEDS ORDERED: CALCIUM CARBONATE MAG HYDROXID PO PRN (12:08)
[2019-11-11] MEDS ORDERED: LOVENOX SUBCUT SCH (12:30)
[2019-11-11 12:37] VITALS: BMI 25.0
[2019-11-11] MEDS ORDERED: VENTOLIN HFA (PER PUFF-WITH SPACER) IH SCH (13:00)
[2019-11-11] MEDS: LOVENOX SUBCUT SCH (14:01)
[2019-11-11] MEDS ORDERED: ENTRESTO 24 MG-26 MG TABLET PO SCH ×2 (18:00→21:00)
[2019-11-11] MEDS: VENTOLIN HFA (PER PUFF-WITH SPACER) IH SCH (19:45)
[2019-11-11] MEDS: ASPIRIN EC PO SCH (20:38)
[2019-11-11] MEDS: LIPITOR PO SCH (20:39)
[2019-11-11] MEDS: OMEGA-3 FISH OIL PO SCH (20:39)
[2019-11-11] MEDS ORDERED: LOPRESSOR PO SCH (21:00)
[2019-11-12] MEDS: VENTOLIN HFA (PER PUFF-WITH SPACER) IH SCH ×4 (05:05→19:22)
[2019-11-12] MEDS ORDERED: LASIX IVP STA (08:41)
[2019-11-12] MEDS ORDERED: ENTRESTO 24 MG-26 MG TABLET PO SCH ×2 (09:00)
--- NOTE | 2019-11-12 09:01 | PCM.PROG ---
Attending Provider: ATTENDING PROVIDER: Dr. RAMON OSEI This patient is seen with Summer Pyel, Nurse Practitioner. DATE OF SERVICE: 11/12/19 SUBJECTIVE: This 79 year old /WHITE M was hospitalized 11/11/19. The patient is resting comfortably still short of breath. He reports that he had a 7 pound weight gain at home and had persistent shortness of breath for two days at home then came to the ER. Denies any chest pain or tightness. REVIEW OF SYSTEMS: CONSTITUTIONAL: No night sweats. No fatigue, malaise, lethargy. No fever or chills. HEENT: Eyes: No visual changes. No eye pain. No eye discharge. ENT: No runny nose. No epistaxis. No sinus pain. No odynophagia. No congestion. RESPIRATORY: No cough, no congestion. No hemoptysis. Shortness of breath. CARDIOVASCULAR: No angina symptoms. No CHF symptoms. No atypical chest pain for CAD. No palpitations. No orthopnea.. GASTROINTESTINAL: No abdominal pain. No nausea or vomiting. No diarrhea or constipation. No hematemesis. No hematochezia. GENITOURINARY: No urgency. No frequency. No dysuria. No hematuria. No ob structive symptoms. No discharge. No pain. No significant abnormal bleeding. MUSCULOSKELETAL: No musculoskeletal pain; no joint swelling. Weakness. NEUROLOGICAL: Awake, alert, oriented to time, place and person. No headache. No neck pain. No syncope. No seizures. No dizziness. PSYCHIATRIC: Not anxious. No depression. No suicidal thoughts. No homicidal thoughts. SKIN: No rash. No lesions. No wounds. ENDOCRINE: No unexplained weight loss. Weight gain. HEMATOLOGIC/LYMPHATIC: No anemia. No purpura. No petechiae. No prolonged or excessive bleeding. No palpable lymph nodes. PHYSICAL EXAMINATION: GENERAL: The patient is awake, alert and oriented, lying in bed in no distress. VITAL SIGNS: Temperature 97.8 F, Pulse 79, Respiratory Rate 20, BP 112/70, Pulse Ox 98% HEENT: Head normocephalic, atraumatic. Eyes: Extraocular muscles are intact. Pupils are equal, round and reactive to light and accommodation. Ears: No lesions. Nose appeared normal. Throat: No exudate or erythema. NECK: Supple. No JVD, no carotid bruit. No lymphadenopathy or thyromegaly. LUNGS: Diminished breath sounds. Clear to auscultation. Percussion note normal. Chest symmetrical. HEART: S1, S2, no S3. No murmurs. No cyanosis or clubbing. No ascites. Pulses: Dorsalis pedis and posterior tibial pulses +1 to +2 both sides. ABDOMEN: Soft. Non-tender. Bowel sounds active. No CVA tenderness. No mass felt. EXTREMITIES: No edema. Full range of motion of all extremities, equal. NEUROLOGIC: No focal deficit. Cranial nerves II through XII are grossly intact. No headache, no double vision or headache. SKIN: Not dry. Intact. Turgor-normal. LYMPHATIC: No palpable lymph nodes/no lymphedema. MUSCULOSKELETAL: Normal joints with no swelling. Muscle tone is normal. LAB REVIEW: 11/12/19 03:00 11/12/19 03:00 11/12/19 03:00: Sodium 128.7 L, Potassium 4.99, Chloride 93.3 L, Carbon Dioxide 30.1 H, Anion Gap 10.29, BUN 23.1 H, Creatinine 1.09, Estimated GFR (MDRD) 65.00, BUN/Creatinine Ratio 21.19, Glucose 107.2 H, Calcium 9.45, Troponin I 0.243 H 11/12/19 03:00: WBC 6.56, RBC 3.06 L, Hgb 9.5 L, Hct 28.0 L, MCV 91.5, MCH 31.0, MCHC 33.9, RDW Coeff of Az 14.0, Plt Count 344, Immature Gran % (Auto) 0.2, Neut % (Auto) 59.1, Lymph % (Auto) 22.9, [place] % (Auto) 14.0 H, Eos % (Auto) 3.2, Baso % (Auto) 0.6, Neut # (Auto) 3.9, Lymph # (Auto) 1.5, [place] # (Auto) 0.9, Eos # (Auto) 0.2, Baso # (Auto) 0.0, Immature Gran # (Auto) 0.0 11/11/19 19:04: Total Creatine Kinase 44.7 L, Troponin I 0.271 H 11/11/19 11:04: Sodium 125.5 L, Potassium 4.84, Chloride 91.2 L, Carbon Dioxide 24.3, Anion Gap 14.84, BUN 22.9 H, Creatinine 1.02, Estimated GFR (MDRD) 70.00, BUN/Creatinine Ratio 22.45, Glucose 127.3 H, Calcium 9.58, Total Bilirubin 0.44, AST 27.0, ALT 16.3, Alkaline Phosphatase 56.2, Total Creatine Kinase 55.1, Troponin I 0.285 H, Total Protein 6.91, Albumin 3.93, Globulin 2.98, Albumin/Roxana bulin Ratio 1.31 11/11/19 11:04: WBC 8.32, RBC 3.27 L, Hgb 10.0 L, Hct 29.6 L, MCV 90.5, MCH 30.6, MCHC 33.8, RDW Coeff of Az 13.9, Plt Count 390, Immature Gran % (Auto) 0.2, Neut % (Auto) 67.9, Lymph % (Auto) 18.8, [place] % (Auto) 11.4 H, Eos % (Auto) 1.2, Baso % (Auto) 0.5, Neut # (Auto) 5.7, Lymph # (Auto) 1.6, [place] # (Auto) 1.0, Eos # (Auto) 0.1, Baso # (Auto) 0.0, Immature Gran # (Auto) 0.0 11/11/19 10:53: Puncture Site Rbrach, O2 Saturation 94.0 L, ABG pH 7.434, ABG pCO2 35.0, ABG pO2 67.0 L, ABG HCO3 23.4, ABG Total CO2 24, ABG Base Excess -1, FiO2 % 21.0 ASSESSMENT: Please see below. 1. Shortness of breath 2. CHF with severe dilated Cardiomyopathy 3. Generalized weakness. PLAN: 1. Continue Medications 2. Give 20mg IV Lasix today 3. Daily weights Plan and coordination of the patient's care discussed in the presence of Lease Out Man and nurse. SCRIBED BY: ROSAURA BALBUENA Rag Sorter scribed while in presence of service performed by Dr. Osei/Summer Pyle APRN on 11/12/19 ([id number])
[2019-11-12] MEDS: LOPRESSOR PO SCH ×2 (09:07→20:44)
[2019-11-12] MEDS: ALDACTONE PO SCH (09:07)
[2019-11-12] MEDS: LASIX TAB PO SCH (09:07)
[2019-11-12] MEDS: ASPIRIN EC PO SCH ×2 (09:07→20:44)
[2019-11-12] MEDS: LOVENOX SUBCUT SCH (09:07)
--- NOTE | 2019-11-12 13:47 | PN ---
DATE OF SERVICE: 11/11/2019 SUBJECTIVE: The patient was seen and examined in the emergency room. He was brought to the emergency room with shortness of breath. The patient symptoms are consistent with CHF. The patient had orthopnea and PND. The patient is in the room. REVIEW OF SYSTEMS: CONSTITUTIONAL: No night sweats. No fatigue, malaise, lethargy. No fever or chills. HEENT: Eyes: No visual changes. No eye pain. No eye discharge. ENT: No runny nose. No epistaxis. No sinus pain. No sore throat. No odynophagia. No congestion. RESPIRATORY: No cough, no congestion. No hemoptysis. No shortness of breath. CARDIOVASCULAR: No angina symptoms. No CHF symptoms. No atypical chest pain for CAD. No palpitations. No PND. No orthopnea. GASTROINTESTINAL: No abdominal pain. No nausea or vomiting. No diarrhea or constipation. No hematemesis. No hematochezia. GENITOURINARY: No urgency. No frequency. No dysuria. No hematuria. No obstructive symptoms. No discharge. No pain. No significant abnormal bleeding. MUSCULOSKELETAL: No musculoskeletal pain; no joint swelling. NEUROLOGICAL: No headache. No neck pain. No syncope. No seizures. No dizziness. PSYCHIATRIC: Not anxious. No depression. No suicidal thoughts. No homicidal thoughts. SKIN: No rash. No lesions. No wounds. ENDOCRINE: No unexplained weight loss. No weight gain. HEMATOLOGIC/LYMPHATIC: No anemia. No purpura. No petechiae. No prolonged or excessive bleeding. No palpable lymph nodes. PHYSICAL EXAMINATION: GENERAL: The patient is oriented to time, place and person. HEENT: Head normocephalic, atraumatic. Eyes: Extraocular muscles are intact. Pupils are equal, round and reactive to light and accommodation. Ears: No lesions. Nose appeared normal. Throat: No exudate or erythema. NECK: Supple. No JVD, no carotid bruit. No lymphadenopathy or thyromegaly. LUNGS: Few crepitations at the bases. Clear to auscultation. Percussion note normal. Chest symmetrical. HEART: S1, S2, no S3. No murmurs. No cyanosis or clubbing. No ascites. Pulses: Dorsalis pedis and posterior tibial pulses +1 to +2 bilaterally. ABDOMEN: Soft. Nontender. Bowel sounds active. No CVA tenderness. No mass felt. EXTREMITIES: Mild to trace leg edema. Full range of motion of all extremities, equal. NEUROLOGIC: No focal deficit. Cranial nerves II through XII are grossly intact. No headache, no double vision or headache. SKIN: Not dry. Intact. Turgor - normal. LYMPHATIC: No palpable lymph nodes/no lymphedema. MUSCULOSKELETAL: Normal joints with no swelling. Muscle tone is normal. Troponin is positive. Again discussed about having cath done which he declined. The patient seems to be quite content with medication. He doesn't want to be transferred besides he is a DNR. The patient has poor ejection fraction with multiple other medical problems He is up and about. Needs to increase his medications and give IV Lasix. Continue to monitor him with telemetry. PLAN: 1. The patient is going to be hospitalized. Again, he is going educated about CHF. 2. The patient's problem is the son doesn't live with him but he visits him a day but most of the work is done by him. He carried on all activity of daily living. His is still in the nursing and for that it bother him and unable to rest at night. CONDITION: Stable. TIME SPENT: More than 30 minutes. Plan and coordination of the patient's care discussed in the presence of nurse. ERROL
--- NOTE | 2019-11-12 14:50 | HP ---
DATE OF SERVICE: 11/11/2019 REASON FOR HOSPITALIZATION/HISTORY OF PRESENT ILLNESS: This is an 79 year old white male who has been hospitalized twice in the past month with acute CHF exacerbation. He stated that he was short of breath Tuesday night and all day Tuesday. He came to the emergency room with shortness of breath. PAST MEDICAL HISTORY: CHF Severe dilated cardiomyopathy with poor ejection fraction of 25% Recent pulmonary edema Recent hyponatremia which had been stable Chronic sinusitis Metabolic syndrome Diabetes mellitus type two controlled Chronic kidney disease stage two COPD Arthrosclerotic heart disease History of esophageal stricture Intermittent constipation Right sciatica Anemia Hypertension Chronic back pain PAST SURGICAL HISTORY: EGD on 11/09 Colonoscopy 2017 REVIEW OF SYSTEMS: CONSTITUTIONAL: No night sweats. No fatigue, malaise, lethargy. No fever or chills. Generalized weakness. HEENT: Eyes: No visual changes. No eye pain. No eye discharge. ENT: No runny nose. No epistaxis. No sinus pain. No sore throat. No odynophagia. No ear pain. No congestion. RESPIRATORY: No cough, no congestion. No hemoptysis. Shortness of breath. CARDIOVASCULAR: No angina symptoms. No CHF symptoms. No atypical chest pain for CAD. No palpitations. No PND. No orthopnea. GASTROINTESTINAL: No abdominal pain. No nausea or vomiting. No diarrhea or constipation. No hematemesis. No hematochezia. GENITOURINARY: No urgency. No frequency. No dysuria. No hematuria. No obstructive symptoms. No discharge. No pain. No significant abnormal bleeding. MUSCULOSKELETAL: No musculoskeletal pain. No joint swelling. No arthritis. NEUROLOGICAL: No headache. No neck pain. No syncope. No seizures. No dizziness. PSYCHIATRIC: Not anxious. No depression. No suicidal thoughts. No homicidal thoughts. SKIN: No rash. No lesions. No wounds. ENDOCRINE: No unexplained weight loss. No weight gain. HEMATOLOGIC/LYMPHATIC: No anemia. No purpura. No petechiae. No prolonged or excessive bleeding. No palpable lymph nodes. PERSONAL/FAMILY/SOCIAL HISTORY: He is still . His has been in a assisted after had fallen and broken a hip. He is a nonsmoker, no alcohol or illicit drug use. MEDICATIONS: Metformin 1000mg PO BID Aspirin 81mg PO BEDTIME FISH OIL 1000mg one capsule PO bedtime Garlic tablet 1000mg PO bedtime Lipitor 40mg PO bedtime Rolaid two tablet PO Q 4 hours PRN Proventil 90mcg two puff inhalation QID Furosemide 20mg PO QAM Lopressor 25mg PO BID Aldactone 25mg PO QAM Entresto 24-26mg PO QAM Entresto 24-26mg 0.5mg PO BEDTIME ALLERGIES: No known allergies PHYSICAL EXAMINATION: GENERAL: The patient is alert and oriented VITAL SIGNS: Temperature 96.2, heart rate 91, respiratory 17. blood pressure 110/64 and pulse ox 94%. HEENT: Head normocephalic, atraumatic. Eyes: Extraocular muscles are intact. Pupils are equal, round and reactive to light and accommodation. Ears: No lesions. Nose appeared normal. Throat: No exudate or erythema. NECK: Supple. No JVD, no carotid bruit. No lymphadenopathy or thyromegaly. LUNGS: Diminished breath sounds. Clear to auscultation. Percussion note normal. Chest symmetrical. HEART: S1, S2, no S3. No murmur. No cyanosis or clubbing. No ascites. Pulses: Dorsalis pedis and posterior tibial pulses +1 to +2 bilaterally. ABDOMEN: Soft. Nontender. Bowel sounds active. No CVA tenderness. No mass felt. EXTREMITIES: No edema. Full range of motion of all extremities, equal. NEUROLOGIC: No focal deficit. Cranial nerves II through XII are grossly intact. No headache, no double vision or headache. SKIN: Not dry. Intact. Turgor - normal. LYMPHATIC: No palpable lymph nodes/no lymphedema. MUSCULOSKELETAL: Normal joints with no swelling. Muscle tone is normal. LABS: Chest x-ray shows small bilateral pleural effusions with improving pulmonary edema. WBC 8.32, hgb 10, hct 29.6, plt count 390, sodium 125, potassium 4.8, BUN 22, creatinine 1.02, glucose 127. ABG on room air O2 saturation 94, pH 7.434, pCO2 35, PO2 67, bicarb 23.4, total CO2 24. Troponin 0.285, Total CK 55.1. ASSESSMENT: 1. Shortness of breath 2. CHF 3. Elevated Troponin though asymptomatic. The patient states that he does not want to be transferred. 4. Hypertension 5. Hyponatremia 6. Severe dilated cardiomyopathy with a ejection fraction of 25% 7. Anemia 8. Generalized weakness PLAN: 1. We will admit 2. Routine telemetry orders 3. CBC and CMP daily 4. Lasix 20mg IV times one 5. Continue home medications 6. Chest x-ray 7. Serial cardiac enzymes and EKG 8. Regular diet Will follow closely. TIME SPENT: More than 70 minutes. MTDD
[2019-11-12] MEDS: ENTRESTO 24 MG-26 MG TABLET PO SCH (20:44)
[2019-11-12] MEDS: LIPITOR PO SCH (20:45)
[2019-11-12] MEDS: OMEGA-3 FISH OIL PO SCH (20:45)
[2019-11-13] MEDS: VENTOLIN HFA (PER PUFF-WITH SPACER) IH SCH ×4 (04:56→20:10)
[2019-11-13] MEDS: LASIX TAB PO SCH (05:32)
[2019-11-13 05:36] LABS: HEMATOCRIT 30.2 % (42.0-52.0)
--- NOTE | 2019-11-13 08:20 | PCM.PROG ---
Attending Provider: ATTENDING PROVIDER: Dr. RAMON OSEI This patient is seen with Summer Pyle, Nurse Practitioner. DATE OF SERVICE: 11/13/19 SUBJECTIVE: This 79 year old /WHITE M was hospitalized 11/11/19. The patient is resting comfortably. Shortness of breath has improved. He has had a 4 pounds weight loss. He has been up and about still wearing nasal oxygen. REVIEW OF SYSTEMS: CONSTITUTIONAL: No night sweats. No fatigue, malaise, lethargy. No fever or chills. Weakness. HEENT: Eyes: No visual changes. No eye pain. No eye discharge. ENT: No runny nose. No epistaxis. No sinus pain. No odynophagia. No congestion. RESPIRATORY: No cough, no congestion. No hemoptysis. Shortness of breath. CARDIOVASCULAR: No angina symptoms. No CHF symptoms. No atypical chest pain for CAD. No palpitations. No orthopnea.. GASTROINTESTINAL: No abdominal pain. No nausea or vomiting. No diarrhea or constipation. No hematemesis. No hematochezia. GENITOURINARY: No urgency. No frequency. No dysuria. No hematuria. No obstructive symptoms. No discharge. No pain. No significant abnormal bleeding. MUSCULOSKELETAL: No musculoskeletal pain; no joint swelling. NEUROLOGICAL: Awake, alert, oriented to time, place and person. No headache. No neck pain. No syncope. No seizures. No dizziness. PSYCHIATRIC: Not anxious. No depression. No suicidal thoughts. No homicidal thoughts. SKIN: No rash. No lesions. No wounds. ENDOCRINE: No unexplained weight loss. No weight gain. HEMATOLOGIC/LYMPHATIC: No anemia. No purpura. No petechiae. No prolonged or excessive bleeding. No palpable lymph nodes. PHYSICAL EXAMINATION: GENERAL: The patient is awake, alert and oriented, lying in bed in no distress. VITAL SIGNS: Temperature 97.5 F, Pulse 71, Respiratory Rate 20, BP 110/63, Pulse Ox 98% HEENT: Head normocephalic, atraumatic. Eyes: Extraocular muscles are intact. Pupils are equal, round and reactive to light and accommodation. Ears: No lesions. Nose appeared normal. Throat: No exudate or erythema. NECK: Supple. No JVD, no carotid bruit. No lymphadenopathy or thyromegaly. LUNGS: Diminished breath sounds. Clear to auscultation. Percussion note normal. Chest symmetrical. HEART: S1, S2, no S3. No murmurs. No cyanosis or clubbing. No ascites. Pulses: Dorsalis pedis and posterior tibial pulses +1 to +2 both sides. ABDOMEN: Soft. Non-tender. Bowel sounds active. No CVA tenderness. No mass felt. EXTREMITIES: No edema. Full range of motion of all extremities, equal. NEUROLOGIC: No focal deficit. Cranial nerves II through XII are grossly intact. No headache, no double vision or headache. SKIN: Not dry. Intact. Turgor-normal. LYMPHATIC: No palpable lymph nodes/no lymphedema. MUSCULOSKELETAL: Normal joints with no swelling. Muscle tone is normal. LAB REVIEW: 11/13/19 04:50 11/13/19 04:50 11/13/19 04:50: Sodium 130.1 L, Potassium 4.24, Chloride 93.2 L, Carbon Dioxide 30.4 H, Anion Gap 10.74, BUN 18.0, Creatinine 0.99, Estimated GFR (MDRD) 73.00, BUN/Creatinine Ratio 18.18, Glucose 113.4 H, Calcium 9.47, Total Bilirubin 0.36, AST 23.1, ALT 14.8, Alkaline Phosphatase 52.9 L, Total Protein 6.55, Albumin 3.6 0, Globulin 2.95, Albumin/Globulin Ratio 1.22 11/13/19 04:50: WBC 8.38, RBC 3.32 L, Hgb 10.0 L, Hct 30.2 L, MCV 91.0, MCH 30.1, MCHC 33.1, RDW Coeff of Az 13.8, Plt Count 387, Immature Gran % (Auto) 0.1, Neut % (Auto) 64.7, Lymph % (Auto) 18.4, [place] % (Auto) 14.0 H, Eos % (Auto) 2.3, Baso % (Auto) 0.5, Neut # (Auto) 5.4, Lymph # (Auto) 1.5, [place] # (Auto) 1.2, Eos # (Auto) 0.2, Baso # (Auto) 0.0, Immature Gran # (Auto) 0.0 ASSESSMENT: Please see below. 1. Acute CHF 2. Severe Dilated Cardiomyopathy 3. Anxiety 4. Hyponatremia, stable. PLAN: 1. Continue medications 2. Daily weights 3. Monitor I&O 4. I do believe part of the shortness of breath is related to anxiety and he is worried about CHF. Plan and coordination of the patient's care discussed in the presence of Air Export Logistics Manager and nurse. SCRIBED BY: Chidi RAYGOZAist scribed while in presence of service performed by Dr. Osei/Summer Pyle APRN on 11/13/19 ([id number])
[2019-11-13] MEDS: ASPIRIN EC PO SCH ×2 (09:08→20:43)
[2019-11-13] MEDS: ALDACTONE PO SCH (09:09)
[2019-11-13] MEDS: LOPRESSOR PO SCH ×2 (09:09→20:42)
[2019-11-13] MEDS: ENTRESTO 24 MG-26 MG TABLET PO SCH ×2 (09:09→20:43)
[2019-11-13] MEDS: LOVENOX SUBCUT SCH (09:11)
[2019-11-13] MEDS: HUMULIN R SUBCUT PRN (11:42)
--- NOTE | 2019-11-13 13:43 | PN ---
DATE OF SERVICE: 11/12/2019 SUBJECTIVE: The patient is doing well. He is seen and examined with the Nurse Practitioners. No symptoms of CHF or coronary insufficiency. The patient had a run of V-tach which was asymptomatic. His prognosis poor. The patient is almost on maximum medication for refractory CHF and coronary insufficiency. CONDITION: Stable for now. PROGNOSIS: POOR The patient wants DNR and he doesn't want any further testing done in a way of invasive cardiology. TIME SPENT: More than 30 minutes. Plan and coordination of the patient's care discussed in the presence of nurse. ERROL
[2019-11-13] MEDS: OMEGA-3 FISH OIL PO SCH (20:42)
[2019-11-13] MEDS: LIPITOR PO SCH (20:42)
[2019-11-14] MEDS: VENTOLIN HFA (PER PUFF-WITH SPACER) IH SCH ×4 (04:40→19:54)
[2019-11-14 04:43] LABS: HEMATOCRIT 31.6 % (42.0-52.0)
[2019-11-14] MEDS: LASIX TAB PO SCH (06:05)
[2019-11-14] MEDS ORDERED: GLUCOPHAGE PO SCH (08:30)
[2019-11-14] MEDS: ASPIRIN EC PO SCH ×2 (08:44→20:55)
[2019-11-14] MEDS: ALDACTONE PO SCH (08:44)
[2019-11-14] MEDS: LOPRESSOR PO SCH ×2 (08:45→20:55)
[2019-11-14] MEDS: ENTRESTO 24 MG-26 MG TABLET PO SCH ×2 (08:48→20:55)
[2019-11-14] MEDS: LOVENOX SUBCUT SCH (08:49)
[2019-11-14] MEDS: HUMULIN R SUBCUT PRN (11:13)
[2019-11-14] MEDS: GLUCOPHAGE PO SCH (17:03)
[2019-11-14] MEDS: LIPITOR PO SCH (20:55)
[2019-11-14] MEDS: OMEGA-3 FISH OIL PO SCH (20:55)
[2019-11-14 21:42] VITALS: BP 107/67
[2019-11-15] MEDS: VENTOLIN HFA (PER PUFF-WITH SPACER) IH SCH ×2 (04:40→09:34)
[2019-11-15] MEDS: LASIX TAB PO SCH (05:48)
[2019-11-15 05:51] VITALS: TEMP 97.5
[2019-11-15 06:33] LABS: HEMATOCRIT 31.1 % (42.0-52.0)
--- NOTE | 2019-11-15 08:34 | PCM.PROG ---
Attending Provider: ATTENDING PROVIDER: Dr. RAMON OSEI This patient is seen with Petrona Garzon, Nurse Practitioner. DATE OF SERVICE: 11/15/19 SUBJECTIVE: This 79 year old /WHITE M was hospitalized 11/11/19. The patient is resting comfortably in bed. He reports he has feeling better. He feels less short of breath His weight has decreased. His appetite has been good. We will discharge him home today. We will resume Home Health. We will see him in the office in one week. REVIEW OF SYSTEMS: CONSTITUTIONAL: No night sweats. No fatigue, malaise, lethargy. No fever or c hills. Weakness. HEENT: Eyes: No visual changes. No eye pain. No eye discharge. ENT: No runny nose. No epistaxis. No sinus pain. No odynophagia. No congestion. RESPIRATORY: No cough, no congestion. No hemoptysis. Improved shortness of breath. CARDIOVASCULAR: No angina symptoms. No CHF symptoms. No atypical chest pain for CAD. No palpitations. No orthopnea.. GASTROINTESTINAL: No abdominal pain. No nausea or vomiting. No diarrhea or constipation. No hematemesis. No hematochezia. GENITOURINARY: No urgency. No frequency. No dysuria. No hematuria. No obstructive symptoms. No discharge. No pain. No significant abnormal bleeding. MUSCULOSKELETAL: No musculoskeletal pain; no joint swelling. NEUROLOGICAL: Awake, alert, oriented to time, place and person. No headache. No neck pain. No syncope. No seizures. No dizziness. PSYCHIATRIC: Not anxious. No depression. No suicidal thoughts. No homicidal thoughts. SKIN: No rash. No lesions. No wounds. ENDOCRINE: No unexplained weight loss. No weight gain. HEMATOLOGIC/LYMPHATIC: No anemia. No purpura. No petechiae. No prolonged or excessive bleeding. No palpable lymph nodes. PHYSICAL EXAMINATION: GENERAL: The patient is awake, alert and oriented, lying in bed in no distress. VITAL SIGNS: Temperature 97.5 F, Pulse 73, Respiratory Rate 16, BP 107/67, Pulse Ox 97% HEENT: Head normocephalic, atraumatic. Eyes: Extraocular muscles are intact. Pupils are equal, round and reactive to light and accommodation. Ears: No lesions. Nose appeared normal. Throat: No exudate or erythema. NECK: Supple. No JVD, no carotid bruit. No lymphadenopathy or thyromegaly. LUNGS: Diminished breath sounds. Clear to auscultation. Percussion note normal. Chest symmetrical. HEART: S1, S2, no S3. No murmurs. No cyanosis or clubbing. No ascites. Pulses: Dorsalis pedis and posterior tibial pulses +1 to +2 both sides. ABDOMEN: Soft. Non-tender. Bowel sounds active. No CVA tenderness. No mass felt. EXTREMITIES: No edema. Full range of motion of all extremities, equal. NEUROLOGIC: No focal deficit. Cranial nerves II through XII are grossly intact. No headache, no double vision or headache. SKIN: Not dry. Intact. Turgor-normal. LYMPHATIC: No palpable lymph nodes/no lymphedema. MUSCULOSKELETAL: Normal joints with no swelling. Muscle tone is normal. LAB REVIEW: 11/15/19 06:25 11/15/19 06:25 11/15/19 06:25: Sodium 130.5 L, Potassium 4.27, Chloride 95.3 L, Carbon Dioxide 28.6, Anion Gap 10.87, BUN 12.5, Creatinine 0.86, Estimated GFR (MDRD) 86.00, BUN/Creatinine Ratio 14.53, Glucose 118.0 H, Calcium 9.36, Total Bilirubin 0.55, AST 23.8, ALT 15.0, Alkaline Phosphatase 61.8, Total Protein 6.63, Albumin 3.65, Globulin 2.98, Albumin/Globulin Ratio 1.22 11/15/19 06:25: WBC 8.51, RBC 3.39 L, Hgb 10.3 L, Hct 31.1 L, MCV 91.7, MCH 30.4, MCHC 33.1, RDW Coeff of Az 13.7, Plt Count 349, Immature Gran % (Auto) 0.4, Neut % (Auto) 68.2, Lymph % (Auto) 16.9, [place] % (Auto) 12.3 H, Eos % (Auto) 2.0, Baso % (Auto) 0.2, Neut # (Auto) 5.8, Lymph # (Auto) 1.4, [place] # (Auto) 1.1, Eos # (Auto) 0.2, Baso # (Auto) 0.0, Immature Gran # (Auto) 0.0 11/14/19 04:20: Hemoglobin A1c 6.50 H ASSESSMENT: Please see below. 1. Acute CHF 2. Severe Dilated Cardiomyopathy 3. Anxiety 4. Hyponatremia, stable. PLAN: 1. Daily weights 2. Resume Home Health with physical therapy 3. Continue medications 4. Decrease salt intake 5. CHF teaching 6. Discharge home 7. See back in the office in one week. Plan and coordination of the patient's care discussed in the presence of Wire Drawer and nurse. SCRIBED BY: Rogelio RAYGOZA scribed while in presence of service performed by Dr. Osei/Petrona Garzon APRN on 11/15/19 ([id number])
[2019-11-15] MEDS: LOPRESSOR PO SCH (09:10)
[2019-11-15] MEDS: ENTRESTO 24 MG-26 MG TABLET PO SCH (09:10)
[2019-11-15] MEDS: ALDACTONE PO SCH (09:12)
[2019-11-15] MEDS: LOVENOX SUBCUT SCH (09:13)
[2019-11-15] MEDS: GLUCOPHAGE PO SCH (09:13)
--- NOTE | 2019-11-15 10:26 | CM.DICTOOL ---
ADMISSION: 11/11/19 12:06 FINAL DIAGNOSIS SHORTNESS OF BREATH CHF WITH SEVERE DILATED CARDIOMYOPATHY GENERALIZED WEAKNESS HX: ACUTE PULMONARY EDEMA DILATED CARDIOMYOPATHY WITH EF 25% HYPONATREMIA CHF ACUTE SINUSITIS- 12/29/2018 METABOLIC SYNDROME DM TYPE 2 , 01/11 - A1C 5.9 CHRONIC KIDNEY DISEASE TYPE 2 COPD ASHD ESOPHAGEAL STRICTURE INTERMITTENT CONSTIPATION RT SCIATICA ANEMIA HYPERTENSION BACK PAIN - BULGING DISC LAST VITALS Temp Pulse Resp BP Pulse Ox 97.5 F L 73 16 107/67 97 11/15/19 05:49 11/15/19 05:49 11/15/19 05:49 11/15/19 05:49 11/15/19 05:49 TAKE THESE MEDICATIONS AT HOME Acetaminophen (Tylenol) 650 mg PO Q4H PRN PRN Reason: Mild Pain Albuterol Sulfate (Ventolin Hfa (Per Puff-With Spacer)) 2 puff IH RTQID SAMAN -- ( CHANGE TO PRN) Last Admin: 11/15/19 04:40 Dose: 2 puff Documented by: Aspirin (Aspirin Ec) 81 mg PO BEDTIME SAMAN Last Admin: 11/14/19 20:55 Dose: 81 mg Documented by: Atorvastatin Calcium (Lipitor) 40 mg PO BEDTIME SAMAN Last Admin: 11/14/19 20:55 Dose: 40 mg Documented by: Fish Oil ([place]-3 Fish Oil) 1,000 mg PO BEDTIME SAMAN Last Admin: 11/14/19 20:55 Dose: 1,000 mg Documented by: Furosemide (Lasix Tab) 20 mg PO QDAC SAMAN Last Admin: 11/15/19 05:48 Dose: 20 mg Documented by: FUROSEMIDE ( LASIX) 20 MG PO , ADDITIONAL DAILY PRN FOR WEIGHT GAIN -- ( NEW) Metformin HCl (Glucophage) 500 mg PO BIDWM SAMAN -- ( CHANGE ) Last Admin: 11/15/19 09:13 Dose: 500 mg Documented by: Metoprolol Tartrate (Lopressor) 25 mg PO BID SAMAN Last Admin: 11/15/19 09:10 Dose: 25 mg Documented by: Sacubitril/Valsartan (Entresto 49 Mg-51Mg Tablet) 0.5 each PO BEDTIME SAMAN Last Admin: 11/14/19 20:55 Documented by: Sacubitril/Valsartan (Entresto 49 Mg-51 Mg Tablet) 1 each PO QAM SAMAN Last Admin: 11/15/19 09:10 Documented by: Sp[facility]act[facility] ([facility]) [facility] [place] Last Admin: 11/15/19 09:12 Dose: 25 mg Documented by: GARLIC 1000 MG PO AT BEDTIME -- ( HOME MED ) CALCIUM CARBONATE- MAG HYDROXID ( ROLAIDS) 2 TABS PO EVERY 4 HOURS PRN - ( HOME MED) ALLERGIES No Known Allergies Allergy (Verified 11/11/19 10:42) DISCONTINUED MEDICATIONS 1).Albuterol Sulfate (Ventolin Hfa (Per Puff-With Spacer)) 2 puff IH QID [facility] -- ( CHANGE TO PRN) 2). MEFORMIN 1000 MG PO BID ( CHANGED TO 500 ) NEW PRESCRIPTIONS: 1). XANAX 0.25 MG PO DAILY PRN 2). LASIX 20 MG PO ADDITIONAL DOSE DAILY PRN FOR WEIGHT GAIN 3). METFORMIN 500 MG PO BID WITH FOOD ( CHANGED ) 4). ALBUTEROL SULFATE METER DOSE INHALER 2 PUFFS 4 TIMES DAILY PRN FOR SHORTNESS OF BREATH ( CHANGED) SMOKING: NON- APPLICABLE DISEASE SPECIFIC EDUCATION: CARDIOMYOPATHY HOME OXYGEN ALBUTEROL MDI XANAX METFORMIN LASIX LAB REVIEW: 11/15/19 06:25 11/15/19 06:25 11/15/19 06:25: Sodium 130.5 L, Potassium 4.27, Chloride 95.3 L, Carbon Dioxide 28.6, Anion Gap 10.87, BUN 12.5, Creatinine 0.86, Estimated GFR (MDRD) 86.00, BUN/Creatinine Ratio 14.53, Glucose 118.0 H, Calcium 9.36, Total Bilirubin 0.55, AST 23.8, ALT 15.0, Alkaline Phosphatase 61.8, Total Protein 6.63, Albumin 3.65, Globulin 2.98, Albumin/Globulin Ratio 1.22 11/15/19 06:25: WBC 8.51, RBC 3.39 L, Hgb 10.3 L, Hct 31.1 L, MCV 91.7, MCH 30.4, MCHC 33.1, RDW Coeff of Az 13.7, Plt Count 349, Immature Gran % (Auto) 0.4, Neut % (Auto) 68.2, Lymph % (Auto) 16.9, [place] % (Auto) 12.3 H, Eos % (Auto) 2.0, Baso % (Auto) 0.2, Neut # (Auto) 5.8, Lymph # (Auto) 1.4, [place] # (Auto) 1.1, Eos # (Auto) 0.2, Baso # (Auto) 0.0, Immature Gran # (Auto) 0.0 11/14/19 04:20: Hemoglobin A1c 6.50 H PLAN: DISCHARGE: HOME TODAY NOVEMBER 15, 2019 WITH [facility] SN RESUMPTION OF CARE ACTIVITY: WALK FREQUENTLY IN HOME. ELEVATE LOWER EXTREMITIES WHEN SITTING OR LYING DOWN STAY HOME EXCEPT FOR APPOINTMENTS. NO STRENUOUS ACTIVITY. STAY INDOORS DURING HOT WEATHER WEIGH DAILY IN THE AM. REPORT WEIGHT GAINS OF 3 LBS IN 24 HOURS OR 5-7 LBS IN A WEEK DIET: 2 GRAM SALT. BOOST GLUCOSE CONTROL 1 DAILY, 3 DAILY IF NOT EATING WELL. FOLLOW UP: SEE DR. OSEI/ ELIDA PADILLA APRN/ AVILA INGRAM APRN IN THE OFFICE, TUESDAY, October @ 1115 CODE STATUS: DO NOT RESUSCITATE MR. KIM REMAINS ALERT AND ORIENTED X 4. HAS BEEN UP AND WALKING IN THE HALLWAY AND TO THE BATHROOM INDEPENDENTLY SEVERAL TIMES A DAY, TOLERATES WELL AND NO EXERTIONAL DYSPNEA. HAS HOME O2 NOW AND USES IT MAINLY WHEN HE REST, BUT DOES VERBALIZE USING IF SOA.SKIN WARM, DRY, INTACT AND PINK. NUTRITIONAL INTAKE FAIR TO GOOD. 2 GRAM SALT AND BOOST SUPPLEMENTS ORDERED. LIVES AT HOME WITH HIS WHOM HAS DEMENTIA. AT THE PRESENT SHE IS IN A REHAB CENTER IN [place] AFTER A FALL AND A LEG FRACTURE. INDEPENDENT OF ADLS AND IADLS WITH INTERMITTENT ASSIST FROM HIS SON. HIS SON CHECKS ON HIM FREQUENTLY. WILL CONTINUE [facility] FOR A SN. ADMITTING WEIGHT 169# , DISCHARGE WEIGHT 158#. CONTINENT OF BOWEL AND BLADDER WITH LAST BM 11/14/2019. MD ELIDA PETERSON APRN ALYCE HANNAN, APRN
--- NOTE | 2019-11-16 10:04 | DS ---
DATE OF SERVICE: 11/15/19 FINAL DIAGNOSIS: 1. SHORTNESS OF BREATH 2. CHF WITH SEVERE DILATED CARDIOMYOPATHY 3. GENERALIZED WEAKNESS HX: 4. ACUTE PULMONARY EDEMA 5. DILATED CARDIOMYOPATHY WITH EF 25% 6. HYPONATREMIA 7. CHF 8. ACUTE SINUSITIS- 12/29/2018 9. METABOLIC SYNDROME 10. DM TYPE 2 , 01/11 - A1C 5.9 11. CHRONIC KIDNEY DISEASE TYPE 2 12. COPD 13. ASHD 14. ESOPHAGEAL STRICTURE 15. INTERMITTENT CONSTIPATION 16. RT SCIATICA 17. ANEMIA 18. HYPERTENSION 19. BACK PAIN - BULGING DISC LAST VITALS Temp Pulse Resp BP Pulse Ox 97.5 F L 73 16 107/67 97 11/15/19 05:49 11/15/19 05:49 11/15/19 05:49 11/15/19 05:49 11/15/19 05:49 DISCHARGE INSTRUCTIONS: 1. DISCHARGE HOME TODAY NOVEMBER 15, 2019 WITH [facility] SN RESUMPTION OF CARE 2. WEIGH DAILY IN THE AM. REPORT WEIGHT GAINS OF 3 LBS IN 24 HOURS OR 5-7 LBS IN A WEEK 3. MD FOLLOW UP: SEE DR. OSEI/ ELIDA PADILLA APRN/AVILA INGRAM APRN IN THE OFFICE, TUESDAY, October @ [id number] 4. CODE STATUS: DO NOT RESUSCITATE MEDICATIONS AT DISCHARGE: Acetaminophen (Tylenol) 650 mg PO Q4H PRN PRN Reason: Mild Pain Albuterol Sulfate (Ventolin Hfa (Per Puff-With Spacer)) 2 puff IH RTQID SAMAN -- ( CHANGE TO PRN) Last Admin: 11/15/19 04:40 Dose: 2 puff Documented by: Aspirin (Aspirin Ec) 81 mg PO BEDTIME SAMAN Last Admin: 11/14/19 20:55 Dose: 81 mg Documented by: Atorvastatin Calcium (Lipitor) 40 mg PO BEDTIME SAMAN Last Admin: 11/14/19 20:55 Dose: 40 mg Documented by: Fish Oil ([place]-3 Fish Oil) 1,000 mg PO BEDTIME SAMAN Last Admin: 11/14/19 20:55 Dose: 1,000 mg Documented by: Furosemide (Lasix Tab) 20 mg PO QDAC SAMAN Last Admin: 11/15/19 05:48 Dose: 20 mg Documented by: FUROSEMIDE ( LASIX) 20 MG PO , ADDITIONAL DAILY PRN FOR WEIGHT GAIN -- ( NEW) Metformin HCl (Glucophage) 500 mg PO BIDWM [facility] -- ( CHANGE ) Last Admin: 11/15/19 09:13 Dose: 500 mg Documented by: Metoprolol Tartrate (Lopressor) 25 mg PO BID [facility] Last Admin: 11/15/19 09:10 Dose: 25 mg Documented by: Sacubitril/Valsartan (Entresto 49 Mg-51Mg Tablet) 0.5 each PO BEDTIME [facility] Last Admin: 11/14/19 20:55 Documented by: Sacubitril/Valsartan (Entresto 49 Mg-51 Mg Tablet) 1 each PO QAM [facility] Last Admin: 11/15/19 09:10 Documented by: Spironolactone (Aldactone) 25 mg PO QAM [facility] Last Admin: 11/15/19 09:12 Dose: 25 mg Documented by: GARLIC 1000 MG PO AT BEDTIME -- ( HOME MED ) CALCIUM CARBONATE- MAG HYDROXID ( ROLAIDS) 2 TABS PO EVERY 4 HOURS PRN - ( HOME MED) NEW PRESCRIPTIONS: 1) XANAX 0.25 MG PO DAILY PRN 2) LASIX 20 MG PO ADDITIONAL DOSE DAILY PRN FOR WEIGHT GAIN 3) METFORMIN 500 MG PO BID WITH FOOD (CHANGED) 4) ALBUTEROL SULFATE METER DOSE INHALER 2 PUFFS 4 TIMES DAILY PRN FOR SHORTNESS OF BREATH (CHANGED) DISCONTINUED MEDICATIONS: 1) Albuterol Sulfate (Ventolin Hfa (Per Puff-With Spacer)) 2 puff IH QID [facility] -- ( CHANGE TO PRN) 2) MEFORMIN 1000 MG PO BID ( CHANGED TO 500 ) DIET INSTRUCTIONS: 2 GRAM SALT. BOOST GLUCOSE CONTROL 1 DAILY, 3 DAILY IF NOT EATING WELL. ACTIVITY: WALK FREQUENTLY IN HOME. ELEVATE LOWER EXTREMITIES WHEN SITTING OR LYING DOWN STAY HOME EXCEPT FOR APPOINTMENTS. NO STRENUOUS ACTIVITY. STAY INDOORS DURING HOT WEATHER SMOKING: NON- APPLICABLE DISEASE SPECIFIC EDUCATION: CARDIOMYOPATHY HOME OXYGEN ALBUTEROL MDI XANAX METFORMIN LASIX HOSPITAL COURSE: This is an 79-year-old white male who presented to the emergency room with shortness of breath over the past several days. He has been hospitalized two previous times for CHF exacerbation. He does have severe dilated cardiomyopathy with an ejection fraction of about 25%. He had recently been started on Entresto, was taking two of the morning and then one in the evening as this was all his blood pressure could tolerate. His potassium level has been fine. First admission he was placed on Lasix 20 daily. The second day of admission he had been placed on Lasix 40 daily with addition of Aldactone 25 mg daily. He stated he had had a 7 lb weight gain at home. He had increasing shortness of breath. He had oxygen he was using and wasn't going away. He has had Home Health come in twice a week. He reports that he has been weighing daily. On chest x-ray it showed he had improving pulmonary edema. He had no leg edema, which he has not even on his first exacerbation of CHF. He was given Lasix 40 mg IV for two days. He did have a significant amount of output. He has lost about 4 lbs since admission. I do believe that part of his shortness of breath is related to anxiety. I feel that at night he is by himself and starts thinking he is short of breath and then has panic type symptoms. His , who he has been to for 60+ years, has been in the [facility] so he is at home by himself. He is also having to do a lot of housework and things around the house by himself as well where he probably overexerts. We are going to give him Xanax 0.25 mg to take as needed daily. I have instructed him that when he does start feeling really short of breath that he put on his oxygen and this does not improve, he could possibly try to take a Xanax so that the panic doesn't set in. We have discussed CHF in great detail. The patient demonstrates understanding. He will continue with daily weights. He has been eating well, up and about, walking around going to the bathroom by himself. He will be discharged in stable condition. TIME SPENT: More than 60 minutes. ERROL
--- NOTE | 2019-11-20 14:36 | PN ---
DATE OF SERVICE: 11/14/2019 SUBJECTIVE: 79 year old white male hospitalized with elevation Troponin with possibility of ischemic heart damage. The patient had symptoms of CHF which seems to have resolved. No chest pain. REVIEW OF SYSTEMS: CONSTITUTIONAL: No night sweats. No fatigue, malaise, lethargy. No fever or chills. Feeling better. HEENT: Eyes: No visual changes. No eye pain. No eye discharge. ENT: No runny nose. No epistaxis. No sinus pain. No sore throat. No odynophagia. No congestion. RESPIRATORY: No cough, no congestion. No hemoptysis. No shortness of breath. CARDIOVASCULAR: No angina symptoms. No CHF symptoms. No atypical chest pain for CAD. No palpitations. No PND. No orthopnea. GASTROINTESTINAL: No abdominal pain. No nausea or vomiting. No diarrhea or constipation. No hematemesis. No hematochezia. Appetite improved. GENITOURINARY: No urgency. No frequency. No dysuria. No hematuria. No obstructive symptoms. No discharge. No pain. No significant abnormal bleeding. MUSCULOSKELETAL: No musculoskeletal pain; no joint swelling. NEUROLOGICAL: No headache. No neck pain. No syncope. No seizures. No dizziness. PSYCHIATRIC: Not anxious. No depression. No suicidal thoughts. No homicidal thoughts. SKIN: No rash. No lesions. No wounds. ENDOCRINE: No unexplained weight loss. No weight gain. HEMATOLOGIC/LYMPHATIC: No anemia. No purpura. No petechiae. No prolonged or excessive bleeding. No palpable lymph nodes. PHYSICAL EXAMINATION: VITAL SIGNS: Temperature 97.4, pulse 80, respiratory rate 20, blood pressure 100/60 and pulse ox 94%. HEENT: Head normocephalic, atraumatic. Eyes: Extraocular muscles are intact. Pupils are equal, round and reactive to light and accommodation. Ears: No lesions. Nose appeared normal. Throat: No exudate or erythema. NECK: Supple. No JVD, no carotid bruit. No lymphadenopathy or thyromegaly. LUNGS: Clear to auscultation with few crepitations at bases. Percussion note normal. Chest symmetrical. HEART: S1, S2, no S3. No murmurs. No cyanosis or clubbing. No ascites. Pulses: Dorsalis pedis and posterior tibial pulses +1 to +2 bilaterally. ABDOMEN: Soft. Nontender. Bowel sounds active. No CVA tenderness. No mass felt. EXTREMITIES: No edema. Full range of motion of all extremities, equal. NEUROLOGIC: No focal deficit. Cranial nerves II through XII are grossly intact. No headache, no double vision or headache. SKIN: Not dry. Intact. Turgor - normal. LYMPHATIC: No palpable lymph nodes/no lymphedema. MUSCULOSKELETAL: Normal joints with no swelling. Muscle tone is normal. LABS: hgb 10.5, hct 31, WBC 8,600 normal differential, creatinine 1, BUN 16, potassium 4.9. ASSESSMENT: 1. CHF, under control 2. Ischemic cardiomyopathy, stable PLAN: 1. Continue the same treatment 2. Metformin 500mg twice a day 3. Discuss CHF 4. Weigh self everyday if two pounds more take an extra 40mg of Lasix. 5. The patient's daughter from [place] with him named, Aileen. Aileen was explained about all the findings. The patient does not want registered pharmacy technician or referral. The patient does not want to be resuscitated. She knows both about it. The patient made it clear that he is in charge of his health care. All the decisions will be made by him. CONDITION: Stable. TIME SPENT: More than 30 minutes. Plan and coordination of the patient's care discussed in the presence of nurse. ERROL
--- NOTE | 2019-11-20 14:45 | PN ---
DATE OF SERVICE: 11/15/2019 SUBJECTIVE: 79 year old white male hospitalized with ischemic cardiomyopathy with some ischemic damage with CHF. The patient's condition is stable. He has no symptoms of CHF or coronary insufficiency. He is feeling a lot better. He is going to be discharged home. Only changes would be that he is going to be taking extra fluid pill, his Lasix when needed. Also explained about the diet. He is going to have more help at home. CONDITION: Stable. TIME SPENT: More than 30 minutes. Plan and coordination of the patient's care discussed in the presence of nurse. ERROL
== END 2019-11-15 12:50 | disposition home health service (06) | DRG 281 ==
LOC: ED 10:29 → MEDSURG A 12:06
PROVIDERS: ADMIT Internal Medicine; ATTEND Internal Medicine
DX: I42.0 Dilated cardiomyopathy; E88.81 Metabolic syndrome and other insulin resistance; Z79.899 Other long term (current) drug therapy; F41.9 Anxiety disorder, unspecified; J44.9 Chronic obstructive pulmonary disease, unspecified; I25.10 Atherosclerotic heart disease of native coronary artery without angina pectoris; I50.9 Heart failure, unspecified; E87.1 Hypo-osmolality and hyponatremia; E11.9 Type 2 diabetes mellitus without complications; N18.2 Chronic kidney disease, stage 2 (mild); R79.89 Other specified abnormal findings of blood chemistry; Z51.81 Encounter for therapeutic drug level monitoring; R06.02 Shortness of breath; I10 Essential (primary) hypertension; R53.1 Weakness; I21.4 Non-ST elevation (NSTEMI) myocardial infarction

== ENCOUNTER 2020-03-18 14:32 | Inpatient (IN) ==
[2020-03-18] MEDS ORDERED: TYLENOL PO PRN (15:12)
[2020-03-18] MEDS ORDERED: ATROPINE SULFATE PFS IVP PRN (15:12)
[2020-03-18] MEDS ORDERED: VISTARIL INJ IM PRN (15:12)
[2020-03-18] MEDS ORDERED: NITROSTAT SL PRN (15:12)
[2020-03-18] MEDS ORDERED: LASIX IVP STA (15:20)
[2020-03-18 15:26] VITALS: BMI 25.2
[2020-03-18] MEDS ORDERED: VENTOLIN HFA (PER PUFF-WITH SPACER) IH PRN (15:39)
[2020-03-18] MEDS ORDERED: XANAX PO PRN (15:39)
[2020-03-18 16:17] LABS: ABSOLUTE RETICS # 0.0363; BASOPHILS # (AUTO) 0.1 K/uL (0-0.2); BASOPHILS % (AUTO) 0.7 % (0.0-3.0); EOSINOPHILS % (AUTO) 0.4 % (0.0-7.0); HEMATOCRIT 30.5 % (42.0-52.0); HEMOGLOBIN 10.3 g/dl (14.0-18.0); IMMATURE GRANULOCYTE % (AUTO) 0.4 % (0.0-5.0); LYMPHOCYTES # (AUTO) 0.7 K/uL (0.60-3.4); LYMPHOCYTES % (AUTO) 8.5 (10.0-50.0); MEAN CORPUSCULAR HEMOGLOBIN 29.5 pg (27.0-31.0); MEAN CORPUSCULAR HGB CONC 33.8 (31.8-35.4); MEAN CORPUSCULAR VOLUME 87.4 fl (80.0-94.0); MONOCYTES # (AUTO) 0.6 K/uL (0.4-2.0); MONOCYTES % (AUTO) 7.7 (0-10); NEUTROPHILS # (AUTO) 6.3 K/ul (2.0-6.9); NEUTROPHILS % (AUTO) 82.3 % (42.2-75.2); PLATELET COUNT 314 10^3/uL (140-440); RDW COEFFICIENT OF VARIATION 16.6 % (11.6-14.8); RED BLOOD COUNT 3.49 10^6/ul (4.70-6.10); RETICULOCYTE % 1.04 %; RETICULOCYTE HEMOGLOBIN 32.7; WHITE BLOOD COUNT 7.67 K/ul (4.2-10.2)
--- NOTE | 2020-03-18 16:28 | DI ---
EXAM: Chest one view, frontal view only. HISTORY: Shortness of breath. COMPARISON: 11/11/2019. FINDINGS: The heart size is enlarged. There may be central vascular congestion. Interstitial promi nence seen in both lungs, greater on the right. There is blunting of the right greater left costophr enic angle. No pneumothorax identified. No acute osseous abnormalities seen IMPRESSION: Right greater than left interstitial opacities and blunting of both costophrenic angles could represe nt pneumonitis or mild edema with small effusions.
[2020-03-18 16:32] LABS: IRON 15.9 ug/dL (49-181)
[2020-03-18 16:34] LABS: ALANINE AMINOTRANSFERASE 14.7 U/L (0-50); ALBUMIN 4.36 g/dL (3.5-5.0); ALKALINE PHOSPHATASE 66.2 U/L (56-119); ASPARTATE AMINO TRANSFERASE 27.1 U/L (17-59); BILIRUBIN,TOTAL 0.95 mg/dL (0.2-1.3); BLOOD UREA NITROGEN 25.2 mg/dL (9-20); CALCIUM 9.7 mg/dL (8.4-10.2); CARBON DIOXIDE 29.3 mmol/L (22-30.0); CHLORIDE 91.4 mmol/L (98-107); CREATINE KINASE 39.5 U/L (55-170); CREATININE 0.97 mg/dL (0.60-1.10); GLUCOSE 130.1 mg/dL (74-106); POTASSIUM 4.45 mmol/L (3.5-5.1); SODIUM 131.4 mmol/L (134.5-145); TOTAL PROTEIN 7.76 g/dL (6.3-8.2)
[2020-03-18 16:48] LABS: TROPONIN I 0.023 ng/ml (0.0000-0.120)
[2020-03-18 17:10] LABS: FERRITIN 76.6 ng/mL (17.9-464.0)
[2020-03-18 17:28] LABS: ABG BASE EXCESS 4.9 (-2.0-2.0); ABG HCO3 28.2 (22.0-26.0); ABG PH 7.49 (7.35-7.45); ABG TCO2 29.3 (22.0-28.0)
[2020-03-18 17:29] LABS: ABG OXYGEN SATURATION 88.8 % (95-100)
[2020-03-18 17:41] LABS: FOLATE 7.46 ng/mL
[2020-03-18] MEDS: GLUCOPHAGE PO SCH (18:25)
[2020-03-18 18:35] LABS: BILIRUBIN,URINE Negative (NEGATIVE); CLARITY,URINE Clear (CLEAR); COLOR,URINE Yellow (YELLOW); GLUCOSE, URINE (UA) Negative (NEGATIVE); KETONES,URINE Negative (NEGATIVE); LEUKOCYTE ESTERASE ,URINE Negative (NEGATIVE); NITRITE,URINE Negative (NEGATIVE); PH,URINE 6.5 (5-9); PROTEIN,URINE Negative (NEGATIVE); URINE, BLOOD Negative (NEGATIVE)
[2020-03-18] MEDS ORDERED: LOPRESSOR PO SCH (21:00)
[2020-03-18] MEDS ORDERED: NON-FORMULARY MEDICATION (Garlic Tablet) PO SCH (21:00)
[2020-03-18] MEDS ORDERED: NON-FORMULARY MEDICATION (Sacubitril-Valsartan [Entresto] 49-51 mg Tablet) PO SCH (21:00)
[2020-03-18] MEDS ORDERED: LIPITOR PO SCH (21:00)
[2020-03-18] MEDS ORDERED: ENTRESTO 24 MG-26 MG TABLET PO SCH (21:00)
[2020-03-18] MEDS ORDERED: OMEGA-3 FISH OIL PO SCH (21:00)
[2020-03-18] MEDS ORDERED: ASPIRIN EC PO SCH (21:00)
[2020-03-18] MEDS: LOPRESSOR PO SCH (21:23)
[2020-03-18 23:15] LABS: CREATINE KINASE 41.7 U/L (55-170)
[2020-03-18 23:28] LABS: TROPONIN I 0.032 ng/ml (0.0000-0.120)
[2020-03-19 05:20] VITALS: BP 104/70; TEMP 97.6
[2020-03-19 05:35] LABS: BASOPHILS % (AUTO) 0.6 % (0.0-3.0); EOSINOPHILS % (AUTO) 0.4 % (0.0-7.0); HEMATOCRIT 28.5 % (42.0-52.0); HEMOGLOBIN 9.6 g/dl (14.0-18.0); IMMATURE GRANULOCYTE % (AUTO) 0.4 % (0.0-5.0); LYMPHOCYTES # (AUTO) 1.1 K/uL (0.60-3.4); MEAN CORPUSCULAR HEMOGLOBIN 28.9 pg (27.0-31.0); MEAN CORPUSCULAR HGB CONC 33.7 (31.8-35.4); MEAN CORPUSCULAR VOLUME 85.8 fl (80.0-94.0); MONOCYTES # (AUTO) 0.8 K/uL (0.4-2.0); MONOCYTES % (AUTO) 11.5 (0-10); NEUTROPHILS # (AUTO) 5.2 K/ul (2.0-6.9); NEUTROPHILS % (AUTO) 72.1 % (42.2-75.2); PLATELET COUNT 286 10^3/uL (140-440); RDW COEFFICIENT OF VARIATION 16.4 % (11.6-14.8); RED BLOOD COUNT 3.32 10^6/ul (4.70-6.10); WHITE BLOOD COUNT 7.14 K/ul (4.2-10.2)
[2020-03-19 05:45] LABS: ALANINE AMINOTRANSFERASE 15.9 U/L (0-50); ALBUMIN 3.85 g/dL (3.5-5.0); ALKALINE PHOSPHATASE 55.2 U/L (56-119); ASPARTATE AMINO TRANSFERASE 30.4 U/L (17-59); BILIRUBIN,TOTAL 0.7 mg/dL (0.2-1.3); BLOOD UREA NITROGEN 30.9 mg/dL (9-20); CALCIUM 9.25 mg/dL (8.4-10.2); CARBON DIOXIDE 28.9 mmol/L (22-30.0); CHLORIDE 92.1 mmol/L (98-107); CREATININE 1.02 mg/dL (0.60-1.10); GLUCOSE 119.6 mg/dL (74-106); POTASSIUM 4.39 mmol/L (3.5-5.1); SODIUM 129.8 mmol/L (134.5-145); TOTAL PROTEIN 7.01 g/dL (6.3-8.2)
[2020-03-19] MEDS: LOPRESSOR PO SCH (08:46)
[2020-03-19] MEDS: GLUCOPHAGE PO SCH (08:46)
[2020-03-19] MEDS ORDERED: LASIX IVP STA (08:55)
[2020-03-19] MEDS ORDERED: ALDACTONE PO SCH (09:00)
[2020-03-19] MEDS ORDERED: FERROUS SULFATE PO SCH (09:00)
[2020-03-19] MEDS ORDERED: ENTRESTO 24 MG-26 MG TABLET PO SCH (09:00)
[2020-03-19] MEDS ORDERED: NON-FORMULARY MEDICATION (Sacubitril-Valsartan [Entresto] 49-51 mg Tablet) PO SCH (09:00)
--- NOTE | 2020-03-19 10:22 | PCM.PROG ---
Attending Provider: ATTENDING PROVIDER: Dr. RAMON OSEI This patient is seen with Summer yPle, Nurse Practitioner. DATE OF SERVICE: 03/19/20 SUBJECTIVE: This 80 year old /WHITE M was hospitalized 03/18/20. The patient is resting comfortably, feeling less sob. Has had some weight loss through the night. He is still sob. REVIEW OF SYSTEMS: CONSTITUTIONAL: No night sweats. No fatigue, malaise, lethargy. No fever or chills. HEENT: Eyes: No visual changes. No eye pain. No eye discharge. ENT: No runny nose. No epistaxis. No sinus pain. No odynophagia. No congestion. RESPIRATORY: No cough, no congestion. No hemoptysis. Shortness of breath. Orthopnea. CARDIOVASCULAR: No angina symptoms. No CHF symptoms. No atypical chest pain for CAD. No palpitations. No orthopnea.. GASTROINTESTINAL: No abdominal pain. No nausea or vomiting. No diarrhea or constipation. No hematemesis. No hematochezia. GENITOURINARY: No urgency. No frequency. No dysuria. No hematuria. No obs tructive symptoms. No discharge. No pain. No significant abnormal bleeding. MUSCULOSKELETAL: No musculoskeletal pain; no joint swelling. Leg edema. NEUROLOGICAL: Awake, alert, oriented to time, place and person. No headache. No neck pain. No syncope. No seizures. No dizziness. PSYCHIATRIC: Not anxious. No depression. No suicidal thoughts. No homicidal thoughts. SKIN: No rash. No lesions. No wounds. ENDOCRINE: No unexplained weight loss. No weight gain. HEMATOLOGIC/LYMPHATIC: No anemia. No purpura. No petechiae. No prolonged or excessive bleeding. No palpable lymph nodes. PHYSICAL EXAMINATION: GENERAL: The patient is awake, alert and oriented, lying in bed in no distress. VITAL SIGNS: Temperature 97.6 F, Pulse 78, Respiratory Rate 18, BP 104/70, Pulse Ox 97% HEENT: Head normocephalic, atraumatic. Eyes: Extraocular muscles are intact. Pupils are equal, round and reactive to light and accommodation. Ears: No lesions. Nose appeared normal. Throat: No exudate or erythema. NECK: Supple. No JVD, no carotid bruit. No lymphadenopathy or thyromegaly. LUNGS: Diminished breath sounds. Clear to auscultation. Percussion note normal. Chest symmetrical. HEART: S1, S2, no S3. No murmurs. No cyanosis or clubbing. No ascites. Pulses: Dorsalis pedis and posterior tibial pulses +1 to +2 both sides. ABDOMEN: Soft. Non-tender. Bowel sounds active. No CVA tenderness. No mass felt. EXTREMITIES: Trace right leg edema. Full range of motion of all extremities, equal. NEUROLOGIC: No focal deficit. Cranial nerves II through XII are grossly intact. No headache, no double vision or headache. SKIN: Not dry. Intact. Turgor-normal. LYMPHATIC: No palpable lymph nodes/no lymphedema. MUSCULOSKELETAL: Normal joints with no swelling. Muscle tone is normal. LAB REVIEW: 03/19/20 05:07 03/19/20 05:07 03/19/20 05:07: Sodium 129.8 L, Potassium 4.39, Chloride 92.1 L, Carbon Dioxide 28.9, Anion Gap 13.19, BUN 30.9 H, Creatinine 1.02, Estimated GFR (MDRD) 70.00, BUN/Creatinine Ratio 30.29, Glucose 119.6 H, Calcium 9.25, Total Bilirubin 0.70, AST 30.4, ALT 15.9, Alkaline Phosphatase 55.2 L, Total Protein 7.01, Albumin 3.85, Globulin 3.16, Albumin/Globulin Ratio 1.21 03/19/20 05:07: WBC 7.14, RBC 3.32 L, Hgb 9.6 L, Hct 28.5 L, MCV 85.8, MCH 28.9, MCHC 33.7, RDW Coeff of Az 16.4 H, Plt Count 286, Immature Gran % (Auto) 0.4, Neut % (Auto) 72.1, Lymph % (Auto) 15.0, [place] % (Auto) 11.5 H, Eos % (Auto) 0.4, Baso % (Auto) 0.6, Neut # (Auto) 5.2, Lymph # (Auto) 1.1, [place] # (Auto) 0.8, Eos # (Auto) 0.0, Baso # (Auto) 0.0, Immature Gran # (Auto) 0.0 03/18/20 23:00: Total Creatine Kinase 41.7 L, Troponin I 0.032 03/18/20 18:21: Urine Color Yellow, Urine Clarity Clear, Urine pH 6.5, Ur Specific [place] 1.020, Urine Protein Negative, Urine Glucose (UA) Negative, Urine Ketones Negative, Urine Blood Negative, Urine Nitrite Negative, Urine Bi lirubin Negative, Urine Urobilinogen 1.0 H, Ur Leukocyte Esterase Negative 03/18/20 17:15: Puncture Site Lr, O2 Saturation 88.8 L, ABG pH 7.49 H, ABG pCO2 37.0, ABG pO2 51.0 L*, ABG HCO3 28.2 H, ABG Total CO2 29.3 H, ABG Base Excess 4.9 H, Domo Test +, FiO2 % 21.0 03/18/20 16:08: Transferrin 267 03/18/20 16:08: Iron 15.9 L, TIBC 363, % Saturation 4, Vitamin B12 282 03/18/20 16:08: Sodium 131.4 L, Potassium 4.45, Chloride 91.4 L, Carbon Dioxide 29.3, Anion Gap 15.15, BUN 25.2 H, Creatinine 0.97, Estimated GFR (MDRD) 74.00, BUN/Creatinine Ratio 25.97, Glucose 130.1 H, Calcium 9.70, Ferritin 76.60, Total Bilirubin 0.95, AST 27.1, ALT 14.7, Alkaline Phosphatase 66.2, Total Creatine Kinase 39.5 L, Troponin I 0.023, NT-Pro-B Natriuret Pep 47289.000 H, Total Protein 7.76, Albumin 4.36, Globulin 3.40, Albumin/Globulin Ratio 1.28, Folate 7.46 03/18/20 16:08: WBC 7.67, RBC 3.49 L, Hgb 10.3 L, Hct 30.5 L, MCV 87.4, MCH 29.5, MCHC 33.8, RDW Coeff of Az 16.6 H, Plt Count 314, Immature Gran % (Auto) 0.4, Neut % (Auto) 82.3 H, Lymph % (Auto) 8.5 L, [place] % (Auto) 7.7, Eos % (Auto) 0.4, Baso % (Auto) 0.7, Reticulocyte % (Auto) 1.04, Neut # (Auto) 6.3, Lymph # (Auto) 0.7, [place] # (Auto) 0.6, Eos # (Auto) 0.0, Baso # (Auto) 0.1, Immature Gran # (Auto) 0.0, Absolute Retic 0.0363, Retic Hgb Equivalent 32.7 03/18/20 15:00: Adenovirus (PCR) Not detected, B. pertussis DNA (PCR) Not detected, B.parapertussis DNA PCR Not detected, C. pneumoniae DNA (PCR) Not detected, Coronavirus OC43 (PCR) Not detected, Coronavirus HKU1 (PCR) Not detected, Coronavirus 229E (PCR) Not detected, Coronavirus NL63 (PCR) Not detected, Human Metapneumovir PCR Not detected, Influenza B (RT-PCR) Not detected, M. pneumoniae (PCR) Not detected, Parainfluenza 1 (PCR) Not detected, Parainfluenza 2 (PCR) Not detected, Parainfluenza 3 (PCR) Not detected, Parainfluenza 4 (PCR) Not detected, RSV (PCR) Not detected, Entero/Rhino (PCR) Not detected, SARS-CoV-2 (PCR) Not detected ASSESSMENT: Please see below. 1. Acute CHF PLAN: 1. Iron 325mg BID 2. 40mg IV Laisx today 3. Echo Plan and coordination of the patient's care discussed in the presence of Edge Cutting Machine Operator and nurse. SCRIBED BY: ROSAURA BALBUENA Fish And Wildlife Technician scribed while in presence of service performed by Dr. Osei/Summer Pyle APRN on 03/19/20 ([id number])
--- NOTE | 2020-03-19 12:17 | PCM.PROG ---
Conchis kelly called at 1200 PM. I ran to bedside talked with nursing who noted he became unresponsive, was in Vfib. Patient is a DNR, he is on telemetry and noted that he had this rhythm. Pulses were checked by nurses and by me, there were none. Sternal rub no response. Pressure to supraorbital nerve without response. Flaccid extremities, absent reflexes. Auscultated heart, no beat/no rhythm. NO air movement/No breathing, face masked, mouth open, pupils dilated. There is no pupillary light reflex with bright light. Pupils mid position 4mm large. He has no cornal reflexes. Movement of head resulted in no movement of eyes with movement of the head. No jerking movements, no movements at all. Patient was felt to be PEA and in cardiopulmonary . No Gag reflex, peripheral reflexes are non responsive. Time of was pronounced at 1207 PM.
--- NOTE | 2020-03-24 13:24 | DS ---
DATE OF SERVICE: 03/19/2020 FINAL DIAGNOSIS: 1. Acute CHF 2. 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 Coronary artery disease 4. History of hypertension 5. Diabetes Mellitus 6. Dyslipidemia 7. Chronic anemia CAUSE OF : Ventricular fibrillation with cardiac arrest. HOSPITAL COURSE: 80 year old white male practically endstage ischemia cardiomyopathy with poor ejection fraction was admitted to the hospital was acute CHF. The patient has recurrent hospitalization for congestive heart failure. He has been on Entresto diuretic and beta blockers. He was given IV Lasix and Spironolactone was continued. In the morning the patient was doing really well. He felt better and his appetite had improved. The patient's BNP was 26,000. The patient in the afternoon had cardiac arrest with ventricular fibrillation. Dr. Cobian attended. The patient was a DNR. The patient . Time of : 12:07PM. TIME SPENT: More than 60 minutes. ERROL
--- NOTE | 2020-03-24 13:24 | PN ---
03/18/2020: Level 5 03/19/2020: D as in discharge MTDD
--- NOTE | 2020-03-24 13:28 | PN ---
DATE OF SERVICE: 03/19/2020 SUBJECTIVE: 80 year old white male was seen in the morning with Nurse Practitioner. The patient felt a lot better. He was still somewhat orthopneic but much better and rested good. His appetite had improved. He was waiting for the breakfast. REVIEW OF SYSTEMS: CONSTITUTIONAL: No night sweats. No fatigue, malaise, lethargy. No fever or chills. HEENT: Eyes: No visual changes. No eye pain. No eye discharge. ENT: No runny nose. No epistaxis. No sinus pain. No sore throat. No odynophagia. No congestion. RESPIRATORY: No cough, no congestion. No hemoptysis. No shortness of breath. CARDIOVASCULAR: No angina symptoms. No CHF symptoms. No atypical chest pain for CAD. No palpitations. No PND. No orthopnea. GASTROINTESTINAL: No abdominal pain. No nausea or vomiting. No diarrhea or constipation. No hematemesis. No hematochezia. GENITOURINARY: No urgency. No frequency. No dysuria. No hematuria. No obstructive symptoms. No discharge. No pain. No significant abnormal bleeding. MUSCULOSKELETAL: No musculoskeletal pain; no joint swelling. NEUROLOGICAL: No headache. No neck pain. No syncope. No seizures. No dizziness. PSYCHIATRIC: Not anxious. No depression. No suicidal thoughts. No homicidal thoughts. SKIN: No rash. No lesions. No wounds. ENDOCRINE: No unexplained weight loss. No weight gain. HEMATOLOGIC/LYMPHATIC: No anemia. No purpura. No petechiae. No prolonged or excessive bleeding. No palpable lymph nodes. PHYSICAL EXAMINATION: HEENT: Head normocephalic, atraumatic. Eyes: Extraocular muscles are intact. Pupils are equal, round and reactive to light and accommodation. Ears: No lesions. Nose appeared normal. Throat: No exudate or erythema. NECK: Supple. No JVD, no carotid bruit. No lymphadenopathy or thyromegaly. LUNGS: Few crepitations at the bases. Clear to auscultation. Percussion note normal. Chest symmetrical. HEART: S1, S2, questionable S3. No murmurs. No cyanosis or clubbing. No ascites. Pulses: Dorsalis pedis and posterior tibial pulses +1 to +2 bilaterally. ABDOMEN: Soft. Nontender. Bowel sounds active. No CVA tenderness. No mass felt. EXTREMITIES: No edema. Full range of motion of all extremities, equal. NEUROLOGIC: No focal deficit. Cranial nerves II through XII are grossly intact. No headache, no double vision or headache. SKIN: Not dry. Intact. Turgor - normal. LYMPHATIC: No palpable lymph nodes/no lymphedema. MUSCULOSKELETAL: Normal joints with no swelling. Muscle tone is normal. LABS: Hgb 9.6, hct 28, creatinine 1, BUN 30, potassium 4.3. ASSESSMENT: 1. CHF with improvement clinically PLAN: 1. Give IV Lasix at continue Entresto and Spironolactone 2. Monitor CBC and CMP TIME SPENT: More than 30 minutes. Plan and coordination of the patient's care discussed in the presence of nurse. ERROL
--- NOTE | 2020-03-27 08:50 | HP ---
DATE OF SERVICE: 03/18/20 HISTORY OF PRESENT ILLNESS: This 80-year-old male presented with shortness of breath with exertion/speaking, feels more short of air. He gained 4 lbs at home and took an extra water pill times three days with no change in weight. He has more short of breath. He has only gained 2 lbs here. He is wearing 02 all the time. He is having to sleep in a recliner. No signs or symptoms of CHF/CAD/COVID. PAST MEDICAL HISTORY: CHF Pulmonary edema Hypertension Anemia Sciatica Metabolic syndrome Dilated cardiomyopathy COPD ASHD 02 REVIEW OF SYSTEMS: CONSTITUTIONAL: Positive for fatigue. No fever.. HEENT: No sinus drainage, no sore throat. RESPIRATORY: No cough, no congestion. CARDIOVASCULAR: CHF symptoms - orthopnea. Shortness of breath - more. No atypical chest pain for coronary artery disease. No angina,, no palpitations.. GASTROINTESTINAL: No melena or abdominal pain. No GERD. GENITOURINARY: No hematuria, no prostatism, no polyuria. PRESCHOOL EDUCATION DIRECTOR: No blackout, no dizziness, no headache, no double vision. MUSCULOSKELETAL: Osteoarthritis pain. No joint swelling. ENDOCRINE: Weight increase of 4 lbs at home; 2 lbs here. SKIN: Not dry, no rash. PSYCHIATRIC: Not anxious, no depression, no suicidal thoughts, no homicidal thoughts. SOCIAL HISTORY: . Six children. No illicit drug use. Nonsmoker. No alcohol use. FAMILY HISTORY: Father , mother . Brother (s) 1, Sister(s) 4. MEDICATIONS: Tylenol 650 mg p.r.n. Albuterol two puffs p.r.n. ASA 81 mg one h.s. Lipitor 40 mg one h.s. Fish Oil 1,000 mg one daily Lasix 20 mg daily Lasix 20 mg daily p.r.n. Metformin 500 mg b.i.d. Metoprolol Tartrate 25 mg b.i.d. Entresto 49/51 one-half h.s., one in a.m. Aldactone 25 mg one a.m. Xanax 0.25 mg one daily 02 p.r.n. daily and h.s. ALLERGIES: NKDA PHYSICAL EXAMINATION: V/S: Temperature 98.8, Pulse 90, BP 118/70, 02 sat 91% - patient on . Weight 172.2, height 5'9", BMI 25.4. GENERAL APPEARANCE: Oriented times three. The patient is on 02, pallor positive. HEENT: Normal. NECK: No JVP, no bruits. RESPIRATORY: Decreased breath sounds, crackle at the bases. CARDIOVASCULAR: S1, S2, no S3, no murmur. No cyanosis, clubbing. No ascites. GI/ABDOMEN: No tenderness. Bowel sounds are active. EXTREMITIES: Trace edema right worse than left, pulses +1, equal. PRESCHOOL EDUCATION DIRECTOR: Deep tendon reflexes, sensory, motor and gait all normal. RECTAL/PROSTATE: 4-18 (0.8). Colonoscopy 06/11 Dr. Tovar. Colocare refused. ASSESSMENT: 1. Shortness of breath. 2. CHF - acute. 3. Generalized weakness. 4. Leg edema. 5. History of CHF 6. Severe dilated cardiomyopathy EF 25% 7. History of pulmonary edema. 8. History of hyponatremia. 9. Hypertension. 10. Anemia. 11. Right sciatica. 12. Metabolic syndrome. 13. Back pain. 10. Chronic kidney disease, Stage 2. 11. COPD. 12. ASHD. 13. History of esophageal stricture 11/09 Dr. Tovar. PLAN: 1. Admit 2. PUI - isolation precautions 3. Routine telemetry orders 4. CBC, CMP now and daily 5. Respiratory panel *Covid test PCR 6. ABG on room air 7. Daily weight 8. Continue home medications except Lasix 9. Lasix 40 mg IV now 10. Chest x-ray 11. Carotid ultrasound bilateral 12. Pro-BNP times one 13. Anemia profile 14. 02 @ 1-2L p.r.n. 15. Regular diet TIME SPENT: More than 70 minutes. MTDD
== END 2020-03-19 12:07 | disposition expired | DRG 316 ==
LOC: MEDSURG B 14:32 → MEDSURG A 16:55
PROVIDERS: ADMIT Internal Medicine; ATTEND Internal Medicine